=== PATIENT | male | born 1980 | race Caucasian/White ===

== ENCOUNTER 2020-10-23 07:51 | Outpatient (REF) | payer OTHER, SELFPAY | END 2020-10-23 07:52 | disposition home or self-care (01) | LOC: HO.LAB 07:51 | PROVIDERS: Visit Provider Internal Medicine | DX: Z20.828 Contact with and (suspected) exposure to other viral communicable diseases (principal) | CPT/HCPCS: C9803; U0003 ==

== ENCOUNTER 2020-11-18 15:01 | Outpatient (REF) | payer OTHER, SELFPAY | END 2020-11-18 15:02 | disposition home or self-care (01) | LOC: HO.LAB 15:01 | PROVIDERS: Visit Provider Internal Medicine | DX: Z20.828 Contact with and (suspected) exposure to other viral communicable diseases (principal) | CPT/HCPCS: C9803; U0003 ==

== ENCOUNTER 2020-11-26 10:13 | Outpatient (REF) | payer OTHER, SELFPAY | END 2020-11-26 10:14 | disposition home or self-care (01) | LOC: HO.LAB 10:13 | PROVIDERS: Visit Provider Internal Medicine | DX: Z20.828 Contact with and (suspected) exposure to other viral communicable diseases (principal) | CPT/HCPCS: 36415; C9803; U0003 ==

== ENCOUNTER 2021-01-09 10:15 | Outpatient (REF) | payer OTHER, SELFPAY | END 2021-01-09 10:16 | disposition home or self-care (01) | LOC: HO.LAB 10:15 | PROVIDERS: Visit Provider Internal Medicine | DX: Z20.822 Contact with and (suspected) exposure to COVID-19 (principal) | CPT/HCPCS: 36415; C9803; U0003; U0005 ==

== ENCOUNTER 2024-01-30 01:49 | Inpatient (IN) | payer MEDICAID, SELFPAY ==
--- NOTE | ~2024-01-30 | CT_ITS ---
CT/CT facial bones w IV con IMPRESSION: Soft tissue swelling adjacent to the anterolateral aspect of the left maxilla with a region of relative hypoattenuation measuring up to 2.9 cm, suspicious for phlegmonous change with a developing abscess, though without definite well-formed rim enhancement at this time. This may be odontogenic in origin, as there is subtle adjacent periapical lucency at the second maxillary molar. EXAMINATION: CT FACIAL BONES WITH CONTRAST CLINICAL INFORMATION: Left maxillary cellulitis, rule out abscess COMPARISON: None available. TECHNIQUE: 85 mL Omnipaque 300 intravenous contrast was utilized. Multidetector helical imaging was performed through the facial bones. Coronal and sagittal reformatted images were created. This CT examination was performed using dose optimization techniques as appropriate, variously including the following: *Automated exposure control *Adjustment of mA and/or kV according to patient size (this includes techniques or standardized protocols for targeted exams where dose is matched to indication/reason for exam; i.e. extremities or head) *Use of iterative reconstruction technique DLP: 399 mGy-cm FINDINGS: There is soft tissue swelling adjacent to the anterolateral aspect of the left maxilla. There is a region of relative hypoattenuation measuring up to approximately 2.9 x 2.4 cm in the axial plane and 2.2 cm in craniocaudal dimension. Appearance is is suspicious phlegmonous change with a developing abscess, though no definite well-formed rim enhancement is seen at this time. This may be odontogenic in origin, as there is subtle adjacent periapical lucency at the second maxillary molar. Overlying subcutaneous edema is present tracking along the left neck. No acute maxillofacial fractures are seen. Surgical hardware noted along the anterior left temporal bone. Small mucous retention cyst in the left maxillary sinus. Mucosal thickening of the bilateral ethmoid air cells. Remaining paranasal sinuses are well aerated. There is mild leftward bowing of the nasal septum. The mandibular condyles are well-seated in the condylar fossa. A relatively diminutive tooth is noted in the left maxilla oriented transversely in the region of the roots of the first and second molars. The orbits demonstrate a normal appearance bilaterally. The globes are intact, and there are no suspicious findings to suggest retrobulbar hemorrhage. Vasculature appears unremarkable. CSF density space in the left middle cranial fossa may represent an arachnoid cyst. Visualized portions of the brain parenchyma are otherwise unremarkable.
[2024-01-30 01:50] VITALS: BP 142/86; PULSE 83; RESP 18; TEMP 36.6; O2SAT 99; BMI 29.8
--- NOTE | 2024-01-30 03:03 | ED.DENTAL ---
HPI - Dental/Oral General Chief complaint: Dental/Oral Stated complaint: abscess Time Seen by Provider: 01/30/24 01:56 Source: patient Mode of arrival: ambulatory Limitations: no limitations History of Present Illness HPI Narrative: This is a 43-year-old male was seen by his dentist for left upper wisdom tooth problem and swelling of the left side of the face patient was started on amoxicillin by the dentist for the past 4 days with progressive worsening of the infection and swelling of the left side of the face. No fever, no chills. Related Data Allergies Allergy/AdvReac Type Severity Reaction Status Date / Time No Known Allergies Allergy Verified 01/30/24 01:54 [No Known Allergies*] Review of Systems Review of Systems: All other systems are reviewed and are negative Constitutional: Reports as per HPI and Reports no additional constitutional complaints Eyes: Reports as per HPI and Reports no additional eye complaints Reports system reviewed and no additional complaints, except as documented Cardiovascular: Reports as per HPI and Reports no additional cardiovascular complaints Respiratory: Reports as per HPI and Reports no additional respiratory complaints Gastrointestinal: Reports as per HPI and Reports no additional gastrointestinal complaints Genitourinary: Reports no additional female genitourinary complaints Musculoskeletal: Reports no additional musculoskeletal complaints Skin/Breast: Reports system reviewed and no additional complaints, except as docu Psychiatric: Reports no additional psychiatric complaints Endocrine: Reports no additional endocrine complaints Hematologic/Lymphatic: Reports no additional hematologic/lymphatic complaints Allergic/Immunologic: Reports no additional allergic/immunologic complaints Reports system reviewed and no additional complaints, except as documented and Reports Abnormal speech present [facility] Social History Social History Advance Directives: No Advance Directives Information Provided: No Physical Exam Vital Signs: Vital Signs: Last Vital Signs Temp 98.2 F 01/30/24 03:18 Pulse 64 01/30/24 03:18 Resp 16 01/30/24 03:18 BP 124/70 01/30/24 03:18 Pulse Ox 97 01/30/24 03:18 O2 Del Method Room Air 01/30/24 03:18 BMI result Body Mass Index 29.8 Vital signs have been reviewed and appear to be correct. Blood pressure elevated. Heart rate normal. Respiratory rate normal. Temperature normal. Oxygen saturation normal. Appearance: Alert. Oriented X3. No acute distress. Head and face: Normal external exam. Normocephalic. Atraumatic. No Vivas signs noted. No raccoon eyes noted, left cheek swelling and redness. Eyes: PERRLA. EOMI and nontender to movement. Conjunctiva and sclera normal. Eyelids normal. ENT: TM's Normal. Pharynx normal. Uvula midline. Moist mucous membranes. No trismus noted. No drooling noted. No muffled voice noted. Neck: Normal inspection. Neck supple. FROM. No adenopathy. Thyroid Normal. No meningeal signs. No neck mass noted. CVS: Normal heart rate and rhythm. Heart sound normal. No murmurs noted. Pulses normal throughout. Respiratory: No respiratory distress. Painless inspiration. Breath sounds normal. No wheezes/rales/rhonchi noted. Chest nontender. No accessory muscle usage noted or decreased air movement noted. Abdomen: Soft and nontender. Bowel sounds normal in all 4 quadrants. No distention noted. No organomegaly noted. No visible injury noted. Back: No CVA tenderness. Full range of motion noted. Skin: Skin warm and dry. Normal skin color. Normal skin turgor. No rashes/lesions/lacerations noted. Extremities: No lower extremity edema. Extremities exhibit normal range of motion. Extremities nontender. Neuro: Oriented X 3. Cranial nerve exam: II-XII are grossly intact No motor deficit. No sensory deficit. Reflexes normal. Course Reevaluation(s) Reevaluation #1: 43-year-old male came in with left facial cellulitis secondary to dental infection patient tried 5 days of amoxicillin orally as an outpatient with worsening of the facial cellulitis received 1 dose of clindamycin IV in the ED, need to be admitted for IV antibiotic. Time: 05:32 Medications Administered Discontinued Medications Generic Name Dose Route Start Last Admin Trade Name Freq PRN Reason Stop Dose Admin Sodium Chloride 1,000 mls @ 999 mls/hr 01/30/24 03:00 01/30/24 04:11 Ns IV 01/30/24 04:00 Infused .Q1H1M ONE Infusion Clindamycin Phosphate 900 mg in 50 mls @ 50 mls/hr 01/30/24 03:00 01/30/24 05:04 Cleocin IV 01/30/24 03:59 Infused ONCE ONE Infusion Iohexol 85 ml 01/30/24 04:05 01/30/24 04:06 Iohexol 350 Mg/Ml 100 Ml Infus..Btl IV 01/30/24 04:06 85 ml ONCE ONE Administration Medical Decision Making Differential Diagnosis Differential Diagnoses: The differential diagnosis associated with the presentation includes (Facial abscess, facial cellulitis, sepsis, electrolyte derangement, severe anemia.) Admission/Observation Consideration of admission/observation: Escalation of care including admission/observation considered Lab Data MDM Lab Attestation statement: I reviewed the patient's lab results. 01/30/24 03:12 01/30/24 03:12 Labs: Lab Results 01/30/24 01/30/24 Range/Units 03:11 03:12 WBC 9.9 (4.8-10.8) X10*3/uL RBC 4.97 (4.60-5.80) X10*6/uL Hgb 14.6 (14.0-18.0) g/dl Hct 42.5 (42.0-52.0) % MCV 85.5 (80.0-98.0) fL MCH 29.4 (27.0-33.0) pg MCHC 34.4 (31.0-36.0) g/dl RDW 13.0 (11.0-16.0) % Plt Count 253 (160-400) X10*3/uL MPV 9.6 (9.4-12.4) fL Immature Gran % (Auto) 0.2 (0.0-0.4) % Neut % (Auto) 62.4 (45-73) % Lymph % (Auto) 26.6 (20-40) % [place] % (Auto) 7.4 (2-11) % Eos % (Auto) 2.9 (0-4) % Baso % (Auto) 0.5 (0-2) % Lymph # (Auto) 2.6 (1.2-4.9) X10*3/uL [place] # (Auto) 0.7 (0.1-1.2) X10*3/uL Eos # (Auto) 0.3 (0.0-0.4) X10*3/uL Baso # (Auto) 0.1 (0.0-0.2) X10*3/uL Abs Immat Gran (auto) 0.02 (0.00-0.03) X10*3/uL Absolute Neuts (auto) 6.2 (2.0-8.3) x10*3/uL Absolute Nucleated RBC 0.000 (0.0-0.012) X10*3/uL Nucleated RBC % (auto) 0.0 (0.0-0.2) /100WBC Sodium 142 (135-145) mmol/L Potassium 3.7 (3.3-5.1) mmol/L Chloride 105 (96-108) mmol/L Carbon Dioxide 25 (22-29) mmol/L Anion Gap 16 (12-20) BUN 16 (9-16) mg/dL Creatinine 0.87 (0.5-1.4) mg/dL Estim Creat Clear Calc 152.5 Estimated GFR > 60 Random Glucose 105 (60-115) mg/dL Lactic Acid 1.0 (0.5-2.0) mmol/L Calcium 9.7 (8.4-10.2) mg/dL Independent Interpretation I performed an independent interpretation of an: CT Scan (Facial:Soft tissue swelling adjacent to the anterolateral aspect of the left maxilla with a region of relative hypoattenuation measuring up to 2.9 cm, suspicious for phlegmonous change with a developing abscess, though without definite well-formed rim enhancement at this time. This may be odontogeni) Radiology Impression Discussion of test interpretation with radiology: I have reviewed the radiologist's reading. Discharge Plan Discharge Clinical Impression: Cellulitis of face Patient Disposition: Admitted As Inpatient
[2024-01-30] MEDS: 0.9 % Sodium Chloride 1,000 ML 999 ML IV (03:10)
[2024-01-30 03:18] VITALS: BP 124/70; PULSE 64; RESP 16; TEMP 36.8; O2SAT 97
[2024-01-30 03:19] LABS: MANUAL DIFF FLAG NO
[2024-01-30 03:20] LABS: Basophils Absolute Auto 0.1 X10*3/uL (0.0-0.2); Basophils Percent Auto 0.5 % (0-2); Eosinophils Absolute Auto 0.3 X10*3/uL (0.0-0.4); Eosinophils Percent Auto 2.9 % (0-4); Hematocrit 42.5 % (42.0-52.0); Hemoglobin 14.6 g/dl (14.0-18.0); Imm Gran Abs Auto 0.02 X10*3/uL (0.00-0.03); Imm Gran Pct Auto 0.2 % (0.0-0.4); Lymphocytes Absolute Auto 2.6 X10*3/uL (1.2-4.9); Lymphocytes Percent Auto 26.6 % (20-40); Mean Corpuscular HGB Conc 34.4 g/dl (31.0-36.0); Mean Corpuscular Hemoglobin 29.4 pg (27.0-33.0); Mean Corpuscular Volume 85.5 fL (80.0-98.0); Mean Platelet Volume 9.6 fL (9.4-12.4); Monocytes Absolute Auto 0.7 X10*3/uL (0.1-1.2); Monocytes Percent Auto 7.4 % (2-11); Neutrophils Absolute Auto 6.2 x10*3/uL (2.0-8.3); Neutrophils Percent Auto 62.4 % (45-73); Platelet Count 253 X10*3/uL (160-400); Red Blood Count 4.97 X10*6/uL (4.60-5.80); White Blood Count 9.9 X10*3/uL (4.8-10.8)
[2024-01-30 03:41] LABS: Anion Gap 16 (12-20); Blood Urea Nitrogen 16 mg/dL (9-16); Calcium 9.7 mg/dL (8.4-10.2); Carbon Dioxide 25 mmol/L (22-29); Chloride 105 mmol/L (96-108); Creatinine Clr Calc Pharmacy 152.5; Estimated Glomerular Filt Rate > 60; Glucose Random 105 mg/dL (60-115); Potassium 3.7 mmol/L (3.3-5.1); Sodium 142 mmol/L (135-145)
[2024-01-30] MEDS: Clindamycin Phosphate/D5W 900 MG/50 ML PIGGYBACK 50 MG IV (03:51)
[2024-01-30] MEDS: iohexoL 350 MG/ML 100 ML INFUS..BTL 85 ML IV (04:06)
[2024-01-30 06:05] VITALS: BP 121/71; PULSE 61; RESP 14; TEMP 36.8; O2SAT 97
--- NOTE | 2024-01-30 08:08 | PHA.MEDREC ---
Pharmacy Consult ? Medication Reconciliation Pharmacy has completed the medication reconciliation. Spoke with patient in the ED. Patient only on amoxicillin and tylenol. Patient started antibiotic approximately 4 days ago.
--- NOTE | 2024-01-30 08:32 | P.HPHOSP_ITS ---
History of Present Illness Date of Service: 01/30/24 Attending physician on admission: Macy Carlos [facility] Social History Advance Directives: No Advance Directives Information Provided: No Meds Allergies Allergy/AdvReac Type Severity Reaction Status Date / Time No Known Allergies Allergy Verified 01/30/24 01:54 [No Known Allergies*] Active Medications: Current Medications Acetaminophen (Acetaminophen 325 Mg Tablet) 650 mg PO Q6H PRN PRN Reason: fever/pain Dexamethasone (Dexamethasone 6 Mg Tablet) 6 mg PO ONCE ONE Stop: 01/30/24 08:28 Piperacillin Sod/Tazobactam (Sod 3.375 gm/ Sodium Chloride) 50 mls @ 100 mls/hr IV Q6H NELI Sodium Chloride (0.9 % Sodium Chloride Flush 3 Ml Syringe) 3 ml IVFLUSH QSHIFT [facility] Home Medications Medication Instructions Recorded Confirmed Last Taken Type acetaminophen 325 mg tablet 650 mg PO Q6H PRN fever/pain 01/30/24 01/30/24 Unknown History amoxicillin 500 mg capsule 500 mg PO TID 01/30/24 01/30/24 Unknown History Physical Exam 2 Vital Signs and Narrative: Vital Signs: Last Vital Signs Temp 98.3 F 01/30/24 06:05 Pulse 61 01/30/24 06:05 Resp 14 01/30/24 06:05 BP 121/71 01/30/24 06:05 Pulse Ox 97 01/30/24 06:05 O2 Del Method Room Air 01/30/24 06:05 BMI result Body Mass Index 29.8 Results Labs 01/30/24 03:12 01/30/24 03:12 Labs: Laboratory Results - last 24 hr 01/30/24 01/30/24 03:11 03:12 MCV 85.5 MCH 29.4 MCHC 34.4 RDW 13.0 Plt Count 253 MPV 9.6 Immature Gran % (Auto) 0.2 Neut % (Auto) 62.4 Lymph % (Auto) 26.6 [place] % (Auto) 7.4 Eos % (Auto) 2.9 Baso % (Auto) 0.5 Lymph # (Auto) 2.6 [place] # (Auto) 0.7 Eos # (Auto) 0.3 Baso # (Auto) 0.1 Abs Immat Gran (auto) 0.02 Absolute Neuts (auto) 6.2 Absolute Nucleated RBC 0.000 Nucleated RBC % (auto) 0.0 Anion Gap 16 Estim Creat Clear Calc 152.5 Estimated GFR > 60 Random Glucose 105 Lactic Acid 1.0 Calcium 9.7 Imaging Radiologist's Impressions: Impressions Face CT 01/30/24 04:14 IMPRESSION: Soft tissue swelling adjacent to the anterolateral aspect of the left maxilla with a region of relative hypoattenuation measuring up to 2.9 cm, suspicious for phlegmonous change with a developing abscess, though without definite well-formed rim enhancement at this time. This may be odontogenic in origin, as there is subtle adjacent periapical lucency at the second maxillary molar. Quality VTE VTE Risk Level:: Medical - moderate - high VTE Device Contraindication: N/A - Device Ordered VTE Drug Contraindication: N/A - Med Ordered
[2024-01-30] MEDS: dexAMETHasone 6 MG TABLET PO (09:20)
[2024-01-30] MEDS: Piperacillin Sodium/Tazobactam 3.375 GM in 0.9 % Sodium Chloride 50 ML IV ×3 (09:20→21:34)
[2024-01-30 11:59] VITALS: BP 135/83; PULSE 65; RESP 19; TEMP 37; O2SAT 98
--- NOTE | 2024-01-30 13:29 | PM.IMHP ---
History of Present Illness Date of Service: 01/30/24 Attending physician on admission: Macy Carlos Chief Complaint: Jaw pain Pt is a 43-year-old male PMH significant for opioid use disorder not on home medications who presents to the ED for evaluation upper left tooth swelling and pain. Patient initially presented to dentist's office 4-5 days ago for left upper wisdom tooth pain, and was started on amoxicillin. Patient has been adherent to medications, but swelling and pain have worsened. Patient denies fever, chills, nausea, vomiting. No shortness of breath. Denies odynophagia, dysphagia. Denies any acute vision changes. In the ED pt was afebrile with vitals WNL. Labs grossly unremarkable. No leukocytosis. Stable H&H. No electrolyte abnormalities. Renal function baseline. CT?of face showed soft tissue swelling adjacent to left maxilla with region of relative hypoattenuation measuring up to 2.9 cm, suspicious for phlegmonous change with a developing abscess though without definite well-formed rim enhancement. Pt was treated with IVF and clindamycin. Pt will be admitted to the hospital for treatment further evaluation of facial cellulitis with possible developing periodontal abscess. Review of Systems Review of Systems: Upper left dental and facial pain Denies fever, chills No odynophagia, dysphagia Denies shortness of breath No acute vision changes [facility] Medical History (Updated 01/30/24 @ 13:42 by DARSHANA Dunne) Opioid use disorder Social History Advance Directives: No Advance Directives Information Provided: No Meds Allergies Allergy/AdvReac Type Severity Reaction Status Date / Time No Known Allergies Allergy Verified 01/30/24 01:54 [No Known Allergies*] Active Medications: Current Medications Acetaminophen (Acetaminophen 325 Mg Tablet) 650 mg PO Q6H PRN PRN Reason: fever/pain Piperacillin Sod/Tazobactam (Sod 3.375 gm/ Sodium Chloride) 50 mls @ 100 mls/hr IV Q6H [facility] Last Infusion: 01/30/24 12:14 Dose: Infused Sodium Chloride (0.9 % Sodium Chloride Flush 3 Ml Syringe) 3 ml IVFLUSH QSHIFT [facility] Home Medications Medication Instructions Recorded Confirmed Last Taken Type acetaminophen 325 mg tablet 650 mg PO Q6H PRN fever/pain 01/30/24 01/30/24 Unknown History amoxicillin 500 mg capsule 500 mg PO TID 01/30/24 01/30/24 Unknown History Physical Exam Vital Signs and Narrative: Vital Signs: Last Vital Signs Temp 98.6 F 01/30/24 11:59 Pulse 65 01/30/24 11:59 Resp 19 01/30/24 11:59 BP 135/83 01/30/24 11:59 Pulse Ox 98 01/30/24 11:59 O2 Del Method Room Air 01/30/24 11:59 BMI result Body Mass Index 29.8 Constitutional: Alert, in no acute distress. Mental Status: Oriented to person, place and time. Eyes: Pupils are equal, round, and reactive to light. EOM intact. Ear, Nose, and Throat: Left upper jaw and gingiva erythematous with area of swelling. Area of swelling on upper left cheek. As pictured below. Respiratory: Clear to auscultation bilaterally. No wheezing, rales, or rhonchi. Cardiovascular: S1, S2 regular. No murmurs, rubs, or gallops. Gastrointestinal: Abdomen soft, non-tender, non-distended. Normal bowel sounds. Neurologic: Cranial nerves II-XII are grossly intact bilaterally. No focal neurological deficits. Moves all extremities spontaneously. Skin: Warm, dry. Musculoskeletal: No cyanosis or clubbing. Extremities: No edema. Psychiatric: Normal mood and affect. Results Labs 01/30/24 03:12 01/30/24 03:12 Labs: Laboratory Results - last 24 hr 01/30/24 01/30/24 03:11 03:12 MCV 85.5 MCH 29.4 MCHC 34.4 RDW 13.0 Plt Count 253 MPV 9.6 Immature Gran % (Auto) 0.2 Neut % (Auto) 62.4 Lymph % (Auto) 26.6 [place] % (Auto) 7.4 Eos % (Auto) 2.9 Baso % (Auto) 0.5 Lymph # (Auto) 2.6 [place] # (Auto) 0.7 Eos # (Auto) 0.3 Baso # (Auto) 0.1 Abs Immat Gran (auto) 0.02 Absolute Neuts (auto) 6.2 Absolute Nucleated RBC 0.000 Nucleated RBC % (auto) 0.0 Anion Gap 16 Estim Creat Clear Calc 152.5 Estimated GFR > 60 Random Glucose 105 Lactic Acid 1.0 Calcium 9.7 Imaging Radiologist's Impressions: Impressions Face CT 01/30/24 04:14 IMPRESSION: Soft tissue swelling adjacent to the anterolateral aspect of the left maxilla with a region of relative hypoattenuation measuring up to 2.9 cm, suspicious for phlegmonous change with a developing abscess, though without definite well-formed rim enhancement at this time. This may be odontogenic in origin, as there is subtle adjacent periapical lucency at the second maxillary molar. Assessment and Plan (1) Cellulitis of face: Status: Acute Plan Pt is a 43-year-old male PMH significant for opioid use disorder not on home medications who presents to the ED for evaluation upper left tooth swelling and pain. Pt will be admitted to the hospital for treatment further evaluation of facial cellulitis with possible developing periodontal abscess. Left facial cellulitis with possible developing upper left molar periodontal abscess CT showing left facial soft tissue swelling with possible developing abscess Failed outpatient therapy on amoxicillin times 4 days Patient does not meet sepsis criteria: No tachycardia, tachypnea, leukocytosis, or fever Given clindamycin in ED Will treat with Zosyn Will give dexamethasone x1 dose Compresses applied to affected area on cheek q.i.d for 30 minutes at a time Salt water gargles q.i.d ID consult Follow cultures Full Code Attending:?Dr. Carlos DVT Prophylaxis: Pt ambulatory Pt will require a hospitalization of at least two nights for treatment of?left facial cellulitis with possible developing periodontal abscess. Given that patient has failed outpatient oral antibiotic therapy he will require hospitalization for administration of IV antibiotics. Quality Stroke Does the patient have a stroke diagnosis?: No VTE Prior VTE?: No VTE Risk Level:: Medical - moderate - high VTE Device Contraindication: N/A - Device Ordered VTE Drug Contraindication: N/A - Med Ordered
[2024-01-30] MEDS: Acetaminophen 325 MG TABLET 650 MG PO ×2 (14:19→21:34)
[2024-01-30] MEDS: 0.9 % Sodium Chloride Flush 3 ML SYRINGE IVFLUSH ×2 (15:33→21:34)
--- NOTE | 2024-01-30 17:08 | PC.NURSE ---
Patient provided with salt water gargle and hot pack for face
[2024-01-30 19:36] VITALS: BP 119/56; PULSE 61; RESP 20; TEMP 36.6; O2SAT 97
[2024-01-30 21:21] VITALS: BMI 28.7
[2024-01-31] MEDS: Piperacillin Sodium/Tazobactam 3.375 GM in 0.9 % Sodium Chloride 50 ML IV ×2 (02:32→08:07)
[2024-01-31 03:30] VITALS: BP 113/63; PULSE 53; RESP 16; TEMP 36.1; O2SAT 98
[2024-01-31 07:30] VITALS: BP 121/67; PULSE 61; RESP 17; TEMP 36.4; O2SAT 98
[2024-01-31] MEDS: 0.9 % Sodium Chloride Flush 3 ML SYRINGE IVFLUSH ×2 (08:07→21:04)
[2024-01-31] MEDS: Acetaminophen 325 MG TABLET 650 MG PO (09:02)
[2024-01-31] MEDS: Clindamycin Phosphate/D5W 900 MG/50 ML PIGGYBACK 50 MG IV (13:31)
--- NOTE | 2024-01-31 13:35 | P.PNIM_ITS ---
Subjective Subjective Date of Service: 01/31/24 Interval History: facial cellulitis Review of Systems erythema and swelling/pain some improving Physical Exam 2 Vital Signs: Vital Signs: Last Vital Signs Temp 97.5 F 01/31/24 07:30 Pulse 61 01/31/24 07:30 Resp 17 01/31/24 07:30 BP 121/67 01/31/24 07:30 Pulse Ox 98 01/31/24 07:30 O2 Del Method Room Air 01/31/24 07:30 BMI result Body Mass Index 28.7 Appearance: Alert.? Oriented X3.? cvs: rrr, [id number]. facial-left side -erythema and swelling somewhat improving(please see h&P). res: clear to auscultation ,no rhonchii or wheezing abd: no rebound or guarding ,nt, bs present. ext pulses present , no cyanosis neuro: axo3 , nonfocal. Objective Data Active Medications Acetaminophen (Acetaminophen 325 Mg Tablet) 650 mg PO Q6H PRN PRN Reason: fever/pain Last Admin: 01/31/24 09:02 Dose: 650 mg Documented By: LAURENT Clindamycin Phosphate (Cleocin) 900 mg in 50 mls @ 50 mls/hr IV Q8H NELI Ceftriaxone Sodium 2 gm/ (Sodium Chloride) 50 mls @ 100 mls/hr IV Q24H NELI Sodium Chloride (0.9 % Sodium Chloride Flush 3 Ml Syringe) 3 ml IVFLUSH QSHIFT NELI Last Admin: 01/31/24 08:07 Dose: 3 ml Documented By: LAURENT Labs 01/30/24 03:12 01/30/24 03:12 Microbiology Microbiology Results: Microbiology 01/30/24 03:46 Blood Culture - Preliminary Blood - Venous No growth after 24 hours. 01/30/24 03:11 Blood Culture - Preliminary Blood - Venous No growth after 24 hours. Assessment and Plan (1) Cellulitis of face: Status: Acute Plan 43-year-old male PMH significant for opioid use disorder not on home medications who presents to the ED for evaluation upper left tooth swelling and pain. Pt will be admitted to the hospital for treatment further evaluation of facial cellulitis with possible developing periodontal abscess. Left facial cellulitis with possible developing upper left molar periodontal abscess CT showing left facial soft tissue swelling with possible developing abscess Failed outpatient therapy on amoxicillin times 4 days,not septic blood cultures pending. D/w Id( official note pending)given zosyn intially -now on iv clindamyin and ceftriaxone day1 Full Code DVT Prophylaxis: Pt ambulatory ongoing need hospitalization for 48 hrs treatment of?left facial cellulitis with possible developing periodontal abscess. Given that patient has failed outpatient oral antibiotic therapy he will require hospitalization for administration of IV antibiotics. expert follow up. Quality Stroke Does the patient have a stroke diagnosis?: No VTE Prior VTE?: No VTE Risk Level:: Medical - moderate - high VTE Device Contraindication: N/A - Device Ordered VTE Drug Contraindication: N/A - Med Ordered
--- NOTE | 2024-01-31 14:36 | P.CNID_ITS ---
History of Present Illness Data of Consult Service Date: 01/31/24 Requesting physician: Macy Carlos Primary Care Provider: Unknown Physician HPI Reason for consult: left dental infection He presents with left maxilla pain and swelling from upper lip area to eye. He saw dentist and was prescribed five days Amoxicillin and is not better/ CT scan shows swelling adjacent to anterolateral left maxilla with 2.9 cn phlegmon. He has no elevated temperature or chills at this time and swelling is going down. He has been in house for 48 hours. He describes no immunosuppression. WBC normal at 9.9. Review of Systems 2 Review of Systems: Yes all other systems are reviewed and are negative PMFSH Past Medical History Medical History Opioid use disorder Family History Family history: reviewed and not pertinent Social History Social History Household Members: Family Housing: House Do you presently have visiting nurse or other home services: No Patient Tobacco Use Status: Current everyday Tobacco user Cigarette Packs Per Day: 1 Cigarettes Per Day: 20.0 Patient Interested in Nicotine Replacement: No (pt has no current insurance) Substance Use Type: Marijuana Substance Use Frequency: Daily Currently Displaying Signs/Symptoms of Drug Intoxication Withdrawal: No Have you been hit, kicked, punched, or otherwise hurt by someone within the past year? If so, by whom?: No Do you feel safe in your current relationship?: Yes Is there a partner from a previous relationship who is making you feel unsafe now?: No Are you made to feel afraid or neglected: No Advance Directives: No Advance Directives Information Provided: No Do you have thoughts of harming others: None Do you have a plan to hurt others: No Plan Recently lost weight without trying: No Nutrition Risks: Dental problems Meds Allergies Allergy/AdvReac Type Severity Reaction Status Date / Time No Known Allergies Allergy Verified 01/30/24 01:54 [No Known Allergies*] Active Medications: Current Medications Acetaminophen (Acetaminophen 325 Mg Tablet) 650 mg PO Q6H PRN PRN Reason: fever/pain Last Admin: 01/31/24 09:02 Dose: 650 mg Clindamycin Phosphate (Cleocin) 900 mg in 50 mls @ 50 mls/hr IV Q8H NELI Last Admin: 01/31/24 13:31 Dose: 50 mls/hr Ceftriaxone Sodium 2 gm/ (Sodium Chloride) 50 mls @ 100 mls/hr IV Q24H [facility] Sodium Chloride (0.9 % Sodium Chloride Flush 3 Ml Syringe) 3 ml IVFLUSH QSHIFT [facility] Last Admin: 01/31/24 08:07 Dose: 3 ml Home Medications Medication Instructions Recorded Confirmed Last Taken Type acetaminophen 325 mg tablet 650 mg PO Q6H PRN fever/pain 01/30/24 01/30/24 Unknown History amoxicillin 500 mg capsule 500 mg PO TID 01/30/24 01/30/24 Unknown History Physical Exam 2 Vital Signs: Vital Signs: Last Vital Signs Temp 97.5 F 01/31/24 07:30 Pulse 61 01/31/24 07:30 Resp 17 01/31/24 07:30 BP 121/67 01/31/24 07:30 Pulse Ox 98 01/31/24 07:30 O2 Del Method Room Air 01/31/24 07:30 BMI result Body Mass Index 28.7 Const: General: cooperative HEENT: Other: swelling still present left face,mild cervical lymphadenopathy Head: Yes normal to inspection Face and sinus: Yes normal facial exam Mouth: Normal oral and palatal mucosa present Teeth and gingiva: dentition normal Eyes: General: appearance normal, both eyes and all related structures P upils: Equal, round and reactive pupils present Resp: Effort & Inspection: normal respiratory effort Cardio: Rate: regular rate Rhythm: regular rhythm GI: Palpation (GI): Soft to palpation and nontender : General: Yes no CVA tenderness Back/Spine/Pelvis: Back: no CVA tenderness Skin: General skin exam: no rashes or lesions noted Neuro: General: moves all extremities Cranial nerves: Yes Equal, round and reactive pupils present Extrem: General: Yes normal to inspection Psych: Appearance: grossly normal Results Labs 01/30/24 03:12 01/30/24 03:12 Microbiology Microbiology Results: Microbiology 01/30/24 03:46 Blood - Venous Blood Culture - Preliminary No growth after 24 hours. 01/30/24 03:11 Blood - Venous Blood Culture - Preliminary No growth after 24 hours. Assessment and Plan (1) Cellulitis of face: Status: Acute Plan This is dental infection,resolving. Opioid use disorder can cause dental concerns. Clindamycin 900 mg IV every 8 hours. Change to Clindamycin 450 mg po every 8 hours for 5-7 days on discharge. Check HIV and Hepatitis C.
[2024-01-31] MEDS: cefTRIAXone sodium 2 GM in 0.9 % Sodium Chloride 50 ML IV (14:49)
[2024-01-31 15:16] VITALS: BP 109/58; PULSE 69; RESP 18; TEMP 36.4; O2SAT 97
[2024-01-31 19:55] VITALS: BP 111/53; PULSE 63; RESP 18; TEMP 36.2; O2SAT 98
[2024-01-31] MEDS: Clindamycin Phosphate/D5W 900 MG/50 ML PIGGYBACK 100 MG IV (20:29)
[2024-02-01 03:18] VITALS: BP 106/52; PULSE 52; RESP 16; TEMP 36.3; O2SAT 98
[2024-02-01] MEDS: Clindamycin Phosphate/D5W 900 MG/50 ML PIGGYBACK 100 MG IV (04:51)
[2024-02-01 08:00] VITALS: BP 123/58; PULSE 83; RESP 16; TEMP 36.3; O2SAT 98
[2024-02-01] MEDS: 0.9 % Sodium Chloride Flush 3 ML SYRINGE IVFLUSH (08:58)
--- NOTE | 2024-02-01 09:03 | MHC.CM.PN ---
Addendum entered by Martha Horne RN 02/01/24 09:21: Patient is medically cleared for dc home self care. Original Note: Patient is from home w/ S.O. and family. Functionally independent. Denies use of DME or services. Patient does not have a PCP. Brochure provided. CM provided education re: HCP and offered assistance, patient declined. Patient does not have insurance at this time, and will apply for [employer]. DP: Home self care, PO abx, estimated cost of abx is ~$20 per pharmacy, patient able to pay out of pocket. Patient states his car is in the lot to transport self home. CM will continue to follow.
--- NOTE | 2024-02-01 09:26 | P.DS_ITS ---
DS: Providers Provider Date of Service: 02/01/24 Date of admission: 01/30/24 08:28 Primary care physician: Unknown Physician Consults: 01/30/24 08:31 Consult to Infectious Diseases Routine Consulting Provider: [facility] Infectious Disease Reason for consultation: facial cellulitis /abcess Has provider been notified: No DS: Diagnosis Discharge Diagnosis (1) Cellulitis of face: Status: Acute DS: Summary Hospital Course Hospital Course: admission hpi Chief Complaint: Jaw pain Pt is a 43-year-old male PMH significant for opioid use disorder not on home medications who presents to the ED for evaluation upper left tooth swelling and pain. Patient initially presented to dentist's office 4-5 days ago for left upper wisdom tooth pain, and was started on amoxicillin. Patient has been adherent to medications, but swelling and pain have worsened. Patient denies fever, chills, nausea, vomiting. No shortness of breath. Denies odynophagia, dysphagia. Denies any acute vision changes. In the ED pt was afebrile with vitals WNL. Labs grossly unremarkable. No leukocytosis. Stable H&H. No electrolyte abnormalities. Renal function baseline. CT?of face showed soft tissue swelling adjacent to left maxilla with region of relative hypoattenuation measuring up to 2.9 cm, suspicious for phlegmonous change with a developing abscess though without definite well-formed rim enhancement. Pt was treated with IVF and clindamycin. Pt will be admitted to the hospital for treatment further evaluation of facial cellulitis with possible developing periodontal abscess. hospital course: He presented with a dental infection causing left facial cellulitis. He was treated with intravenous (IV) clindamycin and showed rapid improvement, with a significant decrease in swelling and redness (see picture). The infectious disease expert recommends transitioning to oral clindamycin upon discharge. He is advised to follow up with his dentist as soon as possible. Time Attestation Discharge Coordination Time (in mins): 33 Quality: Safe Use of Opioids Does Pt have an Active Cancer Diagnosis on the Problem List?: No Quality: Stroke Does the patient have a stroke diagnosis?: No Physical Exam 2 Vital Signs: Vital Signs: Last Vital Signs Temp 97.4 F 02/01/24 08:00 Pulse 83 02/01/24 08:00 Resp 16 02/01/24 08:00 BP 123/58 L 02/01/24 08:00 Pulse Ox 98 02/01/24 08:00 O2 Del Method Room Air 02/01/24 08:00 BMI result Body Mass Index 28.7 General: AO X 3, no acute distress Resp: CTA bilateral CVS: S1,S2,RRR GI: +BS, NT, no distention Skin: Neuro: motor grossly intact Psych: appropriate affect DS: Data Data Completed and Pending Labs on day of discharge: Preliminary micro results at discharge 01/30/24 03:46 Blood Culture - Preliminary Blood - Venous No growth after 48 hours. 01/30/24 03:11 Blood Culture - Preliminary Blood - Venous No growth after 48 hours. Discharge Plan Discharge Anticipated Discharge Date/Time: 02/01/24 09:12 Patient Disposition: Home, Self-Care Discharge Diagnosis: Facial Cellulitis, dental infection Referrals: Physician,Unknown J [Primary Care Provider] - 1 Week Discharge Medications: New clindamycin HCl [Cleocin HCl] 300 mg capsule 450 mg PO Q8H 6 Days Qty: 27 0RF Continued acetaminophen 325 mg Tablet 650 mg PO Q6H PRN (Reason: fever/pain) Discontinued amoxicillin 500 mg capsule 500 mg PO TID Discharge Orders: Discharge Order (Routine); Ordered 02/01/24 Ordered By: [facility] Diet: Advance to usual diet Activity on Discharge: As tolerated Stand Alone Forms: Patient Portal Discharge page Care Plan Goals: resolution of facial cellulitis and dental abscess Health Concerns: Cellulitis, dental abscess. Plan of Treatment: Take clindamycin as recommended and follow up if your dental specialist in a week, call for appointmen Assessment: see above
== END 2024-02-01 11:02 | disposition home or self-care (01) | DRG 159 ==
LOC: HO.ED 03:57 → HO.EDOVER 08:32 → HO.IMC 17:47 → HO.S3 23:39
PROVIDERS: Admitting Provider Internal Medicine; Emergency Provider Emergency Medicine; Visit Provider Internal Medicine
DX: K12.2 Cellulitis and abscess of mouth (principal); F17.210 Nicotine dependence, cigarettes, uncomplicated; Z71.6 Tobacco abuse counseling; F11.90 Opioid use, unspecified, uncomplicated
CPT/HCPCS: 36415; 70487; 80048; 83605; 85025; 87040; 99221; 99285; J0696; J0736; J2543; J8540; Q9967

== ENCOUNTER → 2024-01-30 08:28 | Outpatient (BNV) | payer MEDICAID, SELFPAY | PROVIDERS: Admitting Provider Internal Medicine; Emergency Provider Emergency Medicine; Visit Provider Internal Medicine | DX: L03.211 Cellulitis of face (principal) | CPT/HCPCS: 99222 ==

== ENCOUNTER → 2024-01-30 08:28 | Outpatient (BNV) | payer MEDICAID, SELFPAY | PROVIDERS: Admitting Provider Internal Medicine; Emergency Provider Emergency Medicine; Visit Provider Student in an Organized Health Care Education/Training Program | DX: L03.211 Cellulitis of face (principal); F11.288 Opioid dependence with other opioid-induced disorder | CPT/HCPCS: 99223; 99232; 99239 ==

== ENCOUNTER 2025-04-13 16:39 | Emergency (ER) | payer OTHER, SELFPAY ==
--- NOTE | ~2025-04-13 | XR_ITS ---
CLINICAL HISTORY: ulcer, wound L mid medial leg 2 view left tibia-fibula Comparison: None Findings Diffuse soft tissue swelling with possible ulceration along the posterior aspect near the calcaneus, should be correlated clinically. No acute fracture. No significant arthritic change. No radiopaque foreign body. IMPRESSION: No acute fracture. Diffuse cellulitis This document has been electronically signed by: Jerzy Carlos MD on 04/13/2025 19:53:04
--- NOTE | ~2025-04-13 | US_ITS ---
CLINICAL HISTORY: pain VENOUS DUPLEX ULTRASOUND LEFT LOWER EXTREMITY Comparison: None Findings: The visualized deep veins are fully compressible with normal Doppler color flow and spectral tracings. No popliteal cyst. A left groin lymph node that measures 2.4 cm in length demonstrates benign morphology. IMPRESSION: 1. Negative for left lower extremity deep vein thrombosis. This document has been electronically signed by: Sita Rizzo DO on 04/13/2025 17:55:31
[2025-04-13 16:40] VITALS: BP 134/87; PULSE 88; RESP 18; TEMP 36.8; O2SAT 99; BMI 22.1
--- NOTE | 2025-04-13 16:46 | ED.GENADULT ---
HPI - General Adult General Chief complaint: Wound/Laceration Stated complaint: Left Leg Infection Time Seen by Provider: 04/13/25 17:54 History of Present Illness ED Provider: Brayan Smith MD HPI narrative: [age] male with opioid use disorder, injection, with fluctuating wound of the left medial lower leg for about 2 weeks worsening of the past 2-3 days no subjective fever. He said he struck it on a nail a few weeks ago unsure of tetanus status. No antibiotics or treatment 1st time he evaluation for today. Related Data Previous Rx's ?Medication ?Instructions ?Recorded cefadroxil 500 mg capsule 500 mg PO BID 10 days #20 caps 04/13/25 sulfamethoxazole 800 1 tab PO BID 10 days #20 tabs 04/13/25 mg-trimethoprim 160 mg tablet (Bactrim DS) Allergies Allergy/AdvReac Type Severity Reaction Status Date / Time No Known Allergies Allergy Verified 04/14/25 15:07 [No Known Allergies*] PMFSH Past Medical History Medical History (Updated 04/14/25 @ 17:56 by Johnny Singh MD) MSSA bacteremia Opioid use disorder Social History Social History Household Members: Family Housing: House Do you presently have visiting nurse or other home services: No Patient Tobacco Use Status: Current everyday Tobacco user Cigarette Packs Per Day: 1 Cigarettes Per Day: 20.0 Smoked in Last 30 Days: Yes Use of substances other than those prescribed or required for medical reasons: Yes Substance Use Type: Crack/Cocaine Substance Use Frequency: Daily Last Used Substance: Days (ago) Advance Directives: No Advance Directives Information Provided: No Do you have a plan to hurt others: No Plan Nutrition Risks: No Nutritional Risk service: No Physical Exam ED Vital Signs: Vital Signs - 24 hr 04/13/25 16:40 04/13/25 18:32 04/13/25 20:48 Temperature 98.3 F 97.9 F 98.2 F Pulse Rate 88 66 77 Respiratory Rate 18 18 16 Blood Pressure 134/87 124/72 109/63 Pulse Oximetry 99 99 100 Oxygen Delivery Method Room Air Room Air Room Air 04/13/25 20:48 Temperature 98.3 F Pulse Rate 81 Respiratory Rate 16 Blood Pressure 141/75 H Pulse Oximetry 97 Oxygen Delivery Method Room Air BMI result Body Mass Index 22.1 Const Other: EXAM: Gen sleepy but easily arousable. Temporal wasting thin but not cachectic Head: Atraumatic Eyes: Anicteric, Normal conjunctiva. ENT: Moist mucosa, no pallor. ? Neck: Supple. Respiratory: Breathing comfortably, No distress.Clear to auscultation bilaterally, symmetric chest expansion, No wheeze, rales, ronchi. Cardiovascular: Regular rate and rhythm. No murmurs or rub. Well perfused periphery, warm extremities. No edema. ? Abdominal: Soft, no objective distension. No palpable masses or obvious organomegaly. No focal tenderness, no guarding, no rebound tenderness or other peritoneal findings. : No flank tenderness. Neuro: Alert. Gross movement of all extremities intact. ? MSK: Redness with central ulceration about 2 cm mid left lower leg slightly to the medial aspect. Soft compartments mild swelling and erythema about the ankle. Well-perfused foot. No pain with passive ranging of the ankle Vital signs: See flowsheet Course Course Course Narrative: RME, this is a rapid medical exam performed by Navneet Paz please refer to primary provider for complete H&P- 44-year-old male presents for evaluation of left lower leg pain and swelling. The patient reports that about 2 weeks ago he cut his left leg on what he thinks was a kate nail. He works as a [employer]. He tried to treat it himself with warm compresses, he reports that he tried to open himself with a sharp piece of plastic. He has significant erythema with edema to the left lower extremity over the calf. Plan for labs including blood cultures an ultrasound of the left lower extremity 04/14/2025 Tammy Beauchamp PA-C: 1 of 2 blood cultures positive for gram positive cocci in clusters, Staph positive, MRSA negative. I spoke with the attending physician on staff who recommended having the patient return for re-evaluation and potentially ABX. Medications Administered Discontinued Medications Generic Name Dose Route Start Last Admin Trade Name Freq PRN Reason Stop Dose Admin Ceftriaxone Sodium 2 gm 04/13/25 18:56 04/13/25 20:34 Ceftriaxone Sodium 2 Gm Vial IVPUSH 04/13/25 18:57 2 gm ONCE ONE Administration Ibuprofen 600 mg 04/13/25 18:56 04/13/25 20:33 Ibuprofen 600 Mg Tablet PO 04/13/25 18:57 600 mg ONCE ONE Administration Mupirocin 1 appl 04/13/25 18:56 04/13/25 20:33 Mupirocin 2 % Oint 22 Gm Tube TOPICAL 04/13/25 18:57 Not Given ONCE ONE Protocol Trimethoprim/Sulfamethoxazole 1 tab 04/13/25 18:56 04/13/25 20:34 Sulfamethox/Trimeth 800/160 Tablet PO 04/13/25 18:57 1 tab ONCE ONE Administration Medical Decision Making Medical Decision Making [facility] Narrative: 44-year-old male with IV DU, 2 weeks fluctuating but now worsening left medial lower leg ulceration with surrounding cellulitis. No tachycardia, hypotension, leukocytosis. Unclear mild hemoglobin drop. Given precautions for GI bleeding to return immediately back. PCP follow up. Patient prefers outpatient treatment with oral antibiotics as he depends on his job strict return precautions described. Lab Data [facility] Lab Attestation statement: I reviewed the patient's lab results. 04/13/25 17:47 04/13/25 17:47 Labs: Lab Results 04/13/25 Range/Units 17:47 WBC 7.9 (4.8-10.8) X10*3/uL RBC 4.31 L (4.60-5.80) X10*6/uL Hgb 12.7 L (14.0-18.0) g/dl Hct 36.9 L (42.0-52.0) % MCV 85.6 (80.0-98.0) fL MCH 29.5 (27.0-33.0) pg MCHC 34.4 (31.0-36.0) g/dl RDW 13.0 (11.0-16.0) % Plt Count 277 (160-400) X10*3/uL MPV 9.6 (9.4-12.4) fL Immature Gran % (Auto) 0.3 (0.0-0.4) % Neut % (Auto) 66.8 (45-73) % Lymph % (Auto) 20.5 (20-40) % [place] % (Auto) 9.1 (2-11) % Eos % (Auto) 2.3 (0-4) % Baso % (Auto) 1.0 (0-2) % Lymph # (Auto) 1.6 (1.2-4.9) X10*3/uL [place] # (Auto) 0.7 (0.1-1.2) X10*3/uL Eos # (Auto) 0.2 (0.0-0.4) X10*3/uL Baso # (Auto) 0.1 (0.0-0.2) X10*3/uL Abs Immat Gran (auto) 0.02 (0.00-0.03) X10*3/uL Absolute Neuts (auto) 5.3 (2.0-8.3) x10*3/uL Absolute Nucleated RBC 0.000 (0.0-0.012) X10*3/uL Nucleated RBC % (auto) 0.0 (0.0-0.2) /100WBC Sodium 142 (135-145) mmol/L Potassium 3.6 (3.3-5.1) mmol/L Chloride 106 (96-108) mmol/L Carbon Dioxide 28 (22-29) mmol/L Anion Gap 12 (12-20) BUN 23 H (9-16) mg/dL Creatinine 0.81 (0.5-1.4) mg/dL Estim Creat Clear Calc 138.1 Estimated GFR > 60 Random Glucose 112 (60-115) mg/dL Lactic Acid 1.3 (0.5-2.0) mmol/L Calcium 9.3 (8.4-10.2) mg/dL Total Bilirubin 0.6 (0.0-1.0) mg/dL AST 33 (5-37) U/L ALT 20 (0-40) U/L Alkaline Phosphatase 60 (39-117) U/L Total Creatine Kinase 159 (38-174) U/L Total Protein 7.2 (6.5-8.0) g/dL Albumin 4.0 (3.5-5.0) g/dL Lipase 17 (8-78) U/L Discharge Plan Discharge Clinical Impression: Cellulitis of anterior lower leg Patient Disposition: Home, Self-Care Instructions: Cellulitis (ED) Additional Instructions: DISCHARGE DIAGNOSES: Cellulitis No clot in the leg HISTORY OF PRESENTATION: Swelling redness fluctuating over the past 2 weeks worsened over the past 2-3 days. Left leg EMERGENCY DEPARTMENT COURSE,TESTS, TREATMENTS: While in the ED today we did an ultrasound which excluded a blood clot. Your lab work was reassuring although you did have a slight drop in your red blood cell counts this indicates mild anemia. This is of unclear cause and you should have a repeat CBC blood test with your primary doctor in 1 week. If you notice blood in your stool dark stool vomiting blood or any other bleeding source return back to emergency department for recheck DISCHARGE MEDICATIONS: Cefadroxil and Bactrim are prescribed you take them daily and we recommend taking this with 1 Thai yogurt per day FOLLOW-UP: ?Call your primary or general physician soon as possible to discuss your symptoms, your ED visit and to discuss follow up plans Call your primary doctor for follow up or wound check follow up in 3-4 day in urgent care INSTRUCTIONS ?& RETURN PRECAUTIONS: If any symptoms change first call your primary physician, if it is after-hours your primary doctors office should have a provider stone planer you can speak with. If the symptoms are severe or very concerning to you then call 911 or return to the ED. Brayan Smith MD Emergency Physician [facility] Prescriptions: New sulfamethoxazole-trimethoprim [Bactrim DS] 800-160 mg tablet 1 tab PO BID 10 Days Qty: 20 0RF cefadroxil 500 mg capsule 500 mg PO BID 10 Days Qty: 20 0RF Interventions: ED Discharge Assessment Last Done: 04/13/25 20:48 Discharge Date/Time: 04/13/25 20:53 Print Language: Luxembourgish
[2025-04-13 17:53] LABS: MANUAL DIFF FLAG NO
[2025-04-13 17:55] LABS: Basophils Absolute Auto 0.1 X10*3/uL (0.0-0.2); Eosinophils Absolute Auto 0.2 X10*3/uL (0.0-0.4); Eosinophils Percent Auto 2.3 % (0-4); Hematocrit 36.9 % (42.0-52.0); Hemoglobin 12.7 g/dl (14.0-18.0); Imm Gran Abs Auto 0.02 X10*3/uL (0.00-0.03); Imm Gran Pct Auto 0.3 % (0.0-0.4); Lymphocytes Absolute Auto 1.6 X10*3/uL (1.2-4.9); Lymphocytes Percent Auto 20.5 % (20-40); Mean Corpuscular HGB Conc 34.4 g/dl (31.0-36.0); Mean Corpuscular Hemoglobin 29.5 pg (27.0-33.0); Mean Corpuscular Volume 85.6 fL (80.0-98.0); Mean Platelet Volume 9.6 fL (9.4-12.4); Monocytes Absolute Auto 0.7 X10*3/uL (0.1-1.2); Monocytes Percent Auto 9.1 % (2-11); Neutrophils Absolute Auto 5.3 x10*3/uL (2.0-8.3); Neutrophils Percent Auto 66.8 % (45-73); Platelet Count 277 X10*3/uL (160-400); Red Blood Count 4.31 X10*6/uL (4.60-5.80); White Blood Count 7.9 X10*3/uL (4.8-10.8)
[2025-04-13 18:09] LABS: Lactic Acid 1.3 mmol/L (0.5-2.0)
[2025-04-13 18:12] LABS: Alanine Aminotransferase 20 U/L (0-40); Alkaline Phosphatase 60 U/L (39-117); Anion Gap 12 (12-20); Aspartate Amino Transferase 33 U/L (5-37); Bilirubin Total 0.6 mg/dL (0.0-1.0); Blood Urea Nitrogen 23 mg/dL (9-16); Calcium 9.3 mg/dL (8.4-10.2); Carbon Dioxide 28 mmol/L (22-29); Chloride 106 mmol/L (96-108); Creatinine Clr Calc Pharmacy 138.1; Estimated Glomerular Filt Rate > 60; Glucose Random 112 mg/dL (60-115); Potassium 3.6 mmol/L (3.3-5.1); Sodium 142 mmol/L (135-145); Total Protein 7.2 g/dL (6.5-8.0)
[2025-04-13 18:27] LABS: Lipase 17 U/L (8-78)
[2025-04-13 18:32] VITALS: BP 124/72; PULSE 66; RESP 18; TEMP 36.6; O2SAT 99
--- NOTE | 2025-04-13 18:42 | PC.NURSE ---
LLE irma wound redness has been demarcated with skin marker. Pt is aware that need to stay for IV abx is likely. States he attempted to drain wound and that dark brown drainage was very thick. Left calf is very swollen, warm, red.
[2025-04-13] MEDS: Ibuprofen 600 MG TABLET PO (20:33)
[2025-04-13] MEDS: cefTRIAXone sodium 2 GM VIAL IVPUSH (20:34)
[2025-04-13] MEDS: Sulfamethox/Trimeth 800/160 TABLET 1 TAB PO (20:34)
[2025-04-13 20:48] VITALS: BP 109/63; BP 141/75; PULSE 77; PULSE 81; RESP 16; TEMP 36.8; O2SAT 100; O2SAT 97
--- NOTE | 2025-04-13 20:52 | MHC.EDTECH ---
Provider said no need to collected urine sample ,Last sets of vitals taken before Pt leave .
== END 2025-04-13 20:53 | disposition home or self-care (01) ==
PROVIDERS: Physician Assistant; Emergency Provider Emergency Medicine
DX: L03.116 Cellulitis of left lower limb (principal); M79.605 Pain in left leg; R60.0 Localized edema; Z79.899 Other long term (current) drug therapy
CPT/HCPCS: 36415; 73590; 80053; 82550; 83605; 83690; 85025; 87040; 87077; 87186; 87205; 93971; 96374; 99284; J0696

== ENCOUNTER → 2025-04-13 16:45 | Outpatient (BNV) | payer MEDICAID, SELFPAY | PROVIDERS: Emergency Provider Emergency Medicine; Visit Provider Radiology Diagnostic Radiology | DX: M79.662 Pain in left lower leg (principal); L03.116 Cellulitis of left lower limb | CPT/HCPCS: 73590; 93971 ==

== ENCOUNTER 2025-04-14 14:54 | Inpatient (IN) | payer SELFPAY ==
--- NOTE | ~2025-04-14 | CT_ITS ---
CLINICAL HISTORY: pain, swelling, concern for abscess CT LEFT TIBIA AND FIBULA WITH CONTRAST Comparison: None Findings: Axial images were obtained from the distal femur through the hindfoot. Sagittal and coronal reformatted images are also submitted for review. Diffuse extensive subcutaneous edema. No wall enhancing or measurable fluid collection. No deep or superficial gas lobules. No foreign body. No erosive or resorptive bony changes. No acute fracture or dislocation. Impression: 1. Extensive cellulitic changes. 2. No evidence for abscess, necrotizing fasciitis or acute osteomyelitis. This document has been electronically signed by: Sita Rizzo DO on 04/14/2025 17:22:58
[2025-04-14 15:04] VITALS: BP 150/84; PULSE 102; RESP 18; TEMP 37.2; O2SAT 98; BMI 23.0
--- NOTE | 2025-04-14 15:07 | ED.GENADULT ---
HPI - General Adult General Chief complaint: Recheck/Abnormal Lab/Rx Stated complaint: abnormal labs was called to return Time Seen by Provider: 04/14/25 16:16 Source: patient Mode of arrival: ambulatory Limitations: no limitations History of Present Illness ED Provider: Tammy Beauchamp PA-C HPI narrative: Patient is a 44 year old assigned male at with a history of IVDU (cocaine) and recent left lower leg cellulitis presenting to the emergency department today with positive blood cultures. Patient states that he was recently seen here and started on antibiotics for a left lower leg infection and he was called today and told his blood cultures were positive so he should return. Patient denies any dizziness, lightheadedness, abdominal pain, nausea, vomiting, fever, chills, blurry vision, double vision, loss of vision, chest pain, difficulty breathing, shortness of breath, back pain, night sweats, pain with urination, increased urinary frequency, increased urinary urgency, blood in his urine or stool, syncope or a near syncopal episode, recent trauma or falls, bowel incontinence, bladder incontinence, or any other complaints at this time. Relieving factors: none Exacerbating factors: none Associated symptoms: denies other symptoms Related Data Home Medications ?Medication ?Instructions ?Recorded ?Confirmed acetaminophen 325 mg tablet 650 mg PO Q6H PRN fever/pain 01/30/24 01/30/24 Previous Rx's ?Medication ?Instructions ?Recorded clindamycin HCl 300 mg capsule 450 mg (1.5 x 300 mg) PO Q8H 6 02/01/24 (Cleocin HCl) days #27 caps cefadroxil 500 mg capsule 500 mg PO BID 10 days #20 caps 04/13/25 sulfamethoxazole 800 1 tab PO BID 10 days #20 tabs 04/13/25 mg-trimethoprim 160 mg tablet (Bactrim DS) Allergies Allergy/AdvReac Type Severity Reaction Status Date / Time No Known Allergies Allergy Verified 04/14/25 15:07 [No Known Allergies*] Review of Systems Constitutional: Constitutional: Reports no additional constitutional complaints, Denies chills, Denies fever(s) and Denies night sweats Eyes: Eyes: Reports no additional eye complaints, Denies blurry vision, Denies change in vision, Denies diplopia, Denies eye discharge, Denies loss of vision and Denies eye pain ENT: Denies dizziness Cardiovascular: Cardiovascular: Reports no additional cardiovascular complaints, Denies chest pain, Denies lightheadedness, Denies Loss of Consciousness and Denies dyspnea Respiratory: Respiratory: Reports no additional respiratory complaints and Denies dyspnea Gastrointestinal: Gastrointestinal: Reports no additional gastrointestinal complaints, Denies abdominal pain, Denies melena, Denies hematochezia, Denies change in bowel habits and Denies change in stool character Genitourinary: Genitourinary: Reports no additional male genitourinary complaints, Denies hematuria, Denies oliguria, Denies difficulty urinating, Denies dysuria, Denies urinary frequency, Denies urinary hesitancy, Denies urinary incontinence and Denies urinary urgency Musculoskeletal: Musculoskeletal: Reports no additional musculoskeletal complaints, Denies numbness and Denies tingling Comments: left lower leg wound Neurologic: Denies dizziness, Denies loss of vision, Denies numbness and Denies tingling Psychiatric: Psychiatric: Reports no additional psychiatric complaints Endocrine: Endocrine: Reports no additional endocrine complaints Hematologic/Lymphatic: Hematologic/Lymphatic: Reports no additional hematologic/lymphatic complaints Allergic/Immunologic: Allergic/Immunologic: Reports no additional allergic/immunologic complaints [facility] Past Medical History Attestation statement: The following information was validated with the patient. Source: old records reviewed and nursing notes reviewed Medical History Opioid use disorder Social History Social History Household Members: Family Housing: House Do you presently have visiting nurse or other home services: No Patient Tobacco Use Status: Current everyday Tobacco user Cigarette Packs Per Day: 1 Cigarettes Per Day: 20.0 Smoked in Last 30 Days: Yes Use of substances other than those prescribed or required for medical reasons: Yes Substance Use Type: Crack/Cocaine Substance Use Frequency: Daily Last Used Substance: Days (ago) Advance Directives: No Advance Directives Information Provided: Yes Do you have a plan to hurt others: No Plan service: No Physical Exam ED Vital Signs: Vital Signs - 24 hr 04/14/25 15:04 04/14/25 16:43 Temperature 99 F 98.3 F Pulse Rate 102 H 73 Respiratory Rate 18 16 Blood Pressure 150/84 H 112/56 L Pulse Oximetry 98 99 Oxygen Delivery Method Room Air Room Air BMI result Body Mass Index 23.0 Const General: cooperative, no acute distress, alert and awake Nutritional Appearance: well nourished Orientation/consciousness: patient oriented x3 HENMT Head: Yes normal to inspection and Yes atraumatic Ears: hearing grossly normal bilaterally and external ears normal General nose exam: Normal external nose present, no nasal discharge noted and no epistaxis Face and sinus: Yes normal facial exam, No abrasion and No laceration Mouth: Normal oral and palatal mucosa present, no drooling and no muffled voice Eyes General: appearance normal, both eyes and all related structures Periorbital: periorbital findings normal Eyelids: Yes eyelids normal Conjunctivae: conjunctivae normal Pupils: Equal, round and reactive pupils present EOM: EOMs intact bilaterally Neck Neck: Yes normal visual inspection, Yes full ROM and Yes no lymphadenopathy Resp Effort & Inspection: normal respiratory effort and able to speak in complete sentences Neuro General: patient oriented x3, moves all extremities and CN's II-XI intact bilaterally Cranial nerves: Yes Equal, round and reactive pupils present Cognition (Neuro): normal cognition Extrem Other: General: Yes full ROM and Yes capillary refill normal Psych Appearance: grossly normal Mental Status: mental status grossly normal Affect: normal affect Attitude: cooperative Thought process: Normal thought process present Thought content: Normal thought content present Insight: Good insight present (Psych) Course Course Course Narrative: RME, this is a rapid medical exam performed by Navneet Paz please refer to primary provider for complete H&P- 44 year old male presents for evaluation of positive blood cultures. He was seen here yesterday for cellulitis. He was called back today due to 1/2 blood cultures positive. Plan for labs and repeat blood cultures Medications Administered Discontinued Medications Generic Name Dose Route Start Last Admin Trade Name Jaida PRN Reason Stop Dose Admin Vancomycin HCl 1,000 mg/ 270 mls @ 270 mls/hr 04/14/25 16:20 04/14/25 17:06 Sodium Chloride IV 04/14/25 17:19 270 mls/hr ONCE ONE Administration Piperacillin Sod/Tazobactam 50 mls @ 100 mls/hr 04/14/25 16:20 04/14/25 17:06 Sod 3.375 gm/ Sodium Chloride IV 04/14/25 16:49 Infused ONCE ONE Infusion Iohexol 85 ml 04/14/25 16:47 05/24/25 16:47 Iohexol 350 Mg/Ml 100 Ml Infus..Btl IV 04/14/25 16:48 85 ml ONCE ONE Administration Nicotine 21 mg 04/14/25 16:49 04/14/25 17:11 Nicotine 21 Mg Patch.Td24 TRANSDERMA 04/14/25 16:50 21 mg ONCE ONE Administration Medical Decision Making Medical Decision Making [facility] Narrative: Patient is a 44 year old assigned male at with a history of IVDU (cocaine) and recent left lower leg cellulitis presenting to the emergency department today with positive blood cultures. Patient's physical exam was as noted in the physical exam portion of this note. Patient's blood work showed 1/2 positive blood culture for gram-positive cocci in clusters; MRSA negative but SA positive from his visit on 04/13/2025, WBC count 8.2 (yesterday 7.9), neut% 68.7 (66.8 66.8), ESR 20, and CRP 3.96. Patient's left lower leg x-ray from 04/13/2025 showed no acute process. Patient's left lower extremity US on 04/13/2025 showed no acute process. Patient's left lower leg CT scan today showed evidence of cellulitis but no abscess. I spoke with the hospitalist team who agreed to admission. Patient's clinical presentation is not consistent with sepsis (@1730). Patient given IV Vanc + Zosyn for left lower leg cellulitis. I explained my physical exam findings as well as all test results to the patient. I answered all questions asked by the patient. Patient verbalized agreement and understanding with this treatment plan and admission. Differential Diagnosis Differential Diagnoses: The differential diagnosis associated with the presentation includes Left lower leg cellulitis Admission/Observation Consideration of admission/observation: Escalation of care including admission/observation considered Patient admitted as noted in the MDM Rationale portion of this note. Consult Healthcare Provider Management of the patient was discussed with: Hospitalist (agreed to admission as noted in the MDM Rationale portion of this note.) Lab Data [facility] Lab Attestation statement: I reviewed the patient's lab results. My interpretation of these results are in the MDM Rationale portion of this note. 04/14/25 15:40 04/14/25 15:40 Labs: Lab Results 04/14/25 Range/Units 15:40 WBC 8.2 (4.8-10.8) X10*3/uL RBC 4.02 L (4.60-5.80) X10*6/uL Hgb 12.0 L (14.0-18.0) g/dl Hct 34.3 L (42.0-52.0) % MCV 85.3 (80.0-98.0) fL MCH 29.9 (27.0-33.0) pg MCHC 35.0 (31.0-36.0) g/dl RDW 13.0 (11.0-16.0) % Plt Count 262 (160-400) X10*3/uL MPV 9.2 L (9.4-12.4) fL Immature Gran % (Auto) 0.1 (0.0-0.4) % Neut % (Auto) 68.7 (45-73) % Lymph % (Auto) 15.0 L (20-40) % [place] % (Auto) 9.7 (2-11) % Eos % (Auto) 5.5 H (0-4) % Baso % (Auto) 1.0 (0-2) % Lymph # (Auto) 1.2 (1.2-4.9) X10*3/uL [place] # (Auto) 0.8 (0.1-1.2) X10*3/uL Eos # (Auto) 0.5 H (0.0-0.4) X10*3/uL Baso # (Auto) 0.1 (0.0-0.2) X10*3/uL Abs Immat Gran (auto) 0.01 (0.00-0.03) X10*3/uL Absolute Neuts (auto) 5.7 (2.0-8.3) x10*3/uL Absolute Nucleated RBC 0.000 (0.0-0.012) X10*3/uL Nucleated RBC % (auto) 0.0 (0.0-0.2) /100WBC ESR 20 H (0-15) MM/HR Sodium 141 (135-145) mmol/L Potassium 3.8 (3.3-5.1) mmol/L Chloride 107 (96-108) mmol/L Carbon Dioxide 23 (22-29) mmol/L Anion Gap 15 (12-20) BUN 21 H (9-16) mg/dL Creatinine 0.84 (0.5-1.4) mg/dL Estim Creat Clear Calc 138.8 Estimated GFR > 60 Random Glucose 142 H (60-115) mg/dL Lactic Acid 1.4 (0.5-2.0) mmol/L Calcium 8.8 (8.4-10.2) mg/dL C-Reactive Protein 3.96 H (< or = 0.50) mg/dL Independent Interpretation I performed an independent interpretation of an: CT Scan Interpretation: My interpretation is in agreement with the radiologist's impression of this imaging study. Report Number: [id number]: Total DLP = 361.00 mGy-cm CLINICAL HISTORY: pain, swelling, concern for abscess CT LEFT TIBIA AND FIBULA WITH CONTRAST Comparison: None Findings: Axial images were obtained from the distal femur through the hindfoot. Sagittal and coronal reformatted images are also submitted for review. Diffuse extensive subcutaneous edema. No wall enhancing or measurable fluid collection. No deep or superficial gas lobules. No foreign body. No erosive or resorptive bony changes. No acute fracture or dislocation. Impression: 1. Extensive cellulitic changes. 2. No evidence for abscess, necrotizing fasciitis or acute osteomyelitis. This document has been electronically signed by: Sita Rizzo DO on 04/14/2025 17:22:58 Dictated By: Sita Rizzo MD Signed By: Electronically signed by Sita Rizzo MD 04/14/25 1723 Radiology Impression Discussion of test interpretation with radiology: I have reviewed the radiologist's reading. Critical Care Time Critical Care Time Critical Care Time: Yes Total Critical Care Time: 36 Attestation: I spent 36 minutes of Critical Care Time with this patient. This does not include time spent on separately reported billable procedures. Discharge Plan Discharge Clinical Impression: Cellulitis of left leg, Positive blood culture Patient Disposition: Admitted As Inpatient Print Language: Bulgarian
[2025-04-14 15:47] LABS: MANUAL DIFF FLAG NO
[2025-04-14 15:49] LABS: Basophils Absolute Auto 0.1 X10*3/uL (0.0-0.2); Eosinophils Absolute Auto 0.5 X10*3/uL (0.0-0.4); Eosinophils Percent Auto 5.5 % (0-4); Hematocrit 34.3 % (42.0-52.0); Imm Gran Abs Auto 0.01 X10*3/uL (0.00-0.03); Imm Gran Pct Auto 0.1 % (0.0-0.4); Lymphocytes Absolute Auto 1.2 X10*3/uL (1.2-4.9); Mean Corpuscular Hemoglobin 29.9 pg (27.0-33.0); Mean Corpuscular Volume 85.3 fL (80.0-98.0); Mean Platelet Volume 9.2 fL (9.4-12.4); Monocytes Absolute Auto 0.8 X10*3/uL (0.1-1.2); Monocytes Percent Auto 9.7 % (2-11); Neutrophils Absolute Auto 5.7 x10*3/uL (2.0-8.3); Neutrophils Percent Auto 68.7 % (45-73); Platelet Count 262 X10*3/uL (160-400); Red Blood Count 4.02 X10*6/uL (4.60-5.80); White Blood Count 8.2 X10*3/uL (4.8-10.8)
[2025-04-14 15:59] LABS: Anion Gap 15 (12-20); Blood Urea Nitrogen 21 mg/dL (9-16); Calcium 8.8 mg/dL (8.4-10.2); Carbon Dioxide 23 mmol/L (22-29); Chloride 107 mmol/L (96-108); Creatinine Clr Calc Pharmacy 138.8; Estimated Glomerular Filt Rate > 60; Glucose Random 142 mg/dL (60-115); Potassium 3.8 mmol/L (3.3-5.1); Sodium 141 mmol/L (135-145)
[2025-04-14 16:00] LABS: Lactic Acid 1.4 mmol/L (0.5-2.0)
[2025-04-14 16:39] LABS: C Reactive Protein 3.96 mg/dL (< or = 0.50)
[2025-04-14] MEDS: Piperacillin Sodium/Tazobactam 3.375 GM in 0.9 % Sodium Chloride 50 ML IV (16:40)
[2025-04-14 16:43] VITALS: BP 112/56; PULSE 73; RESP 16; TEMP 36.8; O2SAT 99
[2025-04-14] MEDS: iohexoL 350 MG/ML 100 ML INFUS..BTL 85 ML IV (16:47)
[2025-04-14] MEDS: vancomycin HCL 1,000 MG in 0.9 % Sodium Chloride 250 ML 270 MG IV (17:06)
[2025-04-14] MEDS: Nicotine 21 MG PATCH.TD24 TRANSDERMA (17:11)
[2025-04-14 17:22] LABS: Erythrocyte Sedimentation Rate 20 MM/HR (0-15)
--- NOTE | 2025-04-14 17:53 | P.HPHOSP_ITS ---
History of Present Illness Date of Service: 04/14/25 Chief Complaint: positive blood culture 44M PMH IVDA (cocaine) presented with LLE erythema, pain and drainage on day prior to presentation, was discharged from ED with abx, now called to come back due to MSSA found in 1/2 blood cultures. Patient states he injured his left leg on a nail work 2 weeks prior to presentation. Was treating himself with topical care. Noted some drainage and erythema worsening without any fevers so he came to the ED day prior to presentation. No signs of systemic infection was given oral antibiotics at discharge. Blood cultures were obtained at the time and came back with PCR positive for staph aureus negative for MRSA so he was called to come back. Review of Systems 2 Review of Systems: Yes all other systems are reviewed and are negative [facility] Medical History (Updated 04/14/25 @ 17:56 by Johnny Singh MD) MSSA bacteremia Opioid use disorder Social History Household Members: Family Housing: House Do you presently have visiting nurse or other home services: No Patient Tobacco Use Status: Current everyday Tobacco user Cigarette Packs Per Day: 1 Cigarettes Per Day: 20.0 Smoked in Last 30 Days: Yes Use of substances other than those prescribed or required for medical reasons: Yes Substance Use Type: Crack/Cocaine Substance Use Frequency: Daily Last Used Substance: Days (ago) Advance Directives: No Advance Directives Information Provided: Yes Do you have a plan to hurt others: No Plan service: No Meds Allergies Allergy/AdvReac Type Severity Reaction Status Date / Time No Known Allergies Allergy Verified 04/14/25 15:07 [No Known Allergies*] Active Medications: Current Medications Acetaminophen (Acetaminophen 325 Mg Tablet) 650 mg PO Q6H PRN PRN Reason: Pain, Mild 1-3,fever,headache Calcium Carbonate (Calcium Carbonate 750 Mg Tab.Chew) 750 mg PO Q4H PRN PRN Reason: Heartburn Enoxaparin Sodium (Enoxaparin Sodium 40 Mg/0.4 Ml Syringe) 40 mg SUBCUT Q24H [facility] Cefazolin Sodium/Dextrose (Ancef) 2 gm in 50 mls @ 100 mls/hr IV Q8H [facility] Magnesium Hydroxide (Milk Of Magnesia 30 Ml Oral.Susp) 30 ml PO DAILY PRN PRN Reason: Constipation Melatonin (Melatonin 3 Mg Tablet) 6 mg PO BEDTIME PRN PRN Reason: Insomnia Sodium Chloride (0.9 % Sodium Chloride Flush 3 Ml Syringe) 3 ml IVFLUSH QSHIFT [facility] Home Medications ?Medication ?Instructions ?Recorded ?Confirmed ?Last Taken ?Type acetaminophen 325 mg tablet 650 mg PO Q6H PRN fever/pain 01/30/24 01/30/24 Unknown History Physical Exam 2 Vital Signs and Narrative: Vital Signs: Last Vital Signs Temp 98.3 F 04/14/25 16:43 Pulse 73 04/14/25 16:43 Resp 16 04/14/25 16:43 BP 112/56 L 04/14/25 16:43 Pulse Ox 99 04/14/25 16:43 O2 Del Method Room Air 04/14/25 16:43 BMI result Body Mass Index 23.0 General: AO X 3, no acute distress Resp: CTA bilateral, no accessory muscles used CVS: S1,S2,RRR GI: soft, non tender, non distended Neuro: motor grossly intact, alert Psych: appropriate affect, appropriate insight LLE erythema (see ed note) Results Labs 04/14/25 15:40 04/14/25 15:40 Labs: Laboratory Results - last 24 hr 04/14/25 15:40 MCV 85.3 MCH 29.9 MCHC 35.0 RDW 13.0 Plt Count 262 MPV 9.2 L Immature Gran % (Auto) 0.1 Neut % (Auto) 68.7 Lymph % (Auto) 15.0 L [place] % (Auto) 9.7 Eos % (Auto) 5.5 H Baso % (Auto) 1.0 Lymph # (Auto) 1.2 [place] # (Auto) 0.8 Eos # (Auto) 0.5 H Baso # (Auto) 0.1 Abs Immat Gran (auto) 0.01 Absolute Neuts (auto) 5.7 Absolute Nucleated RBC 0.000 Nucleated RBC % (auto) 0.0 ESR 20 H Anion Gap 15 Estim Creat Clear Calc 138.8 Estimated GFR > 60 Random Glucose 142 H Lactic Acid 1.4 Calcium 8.8 C-Reactive Protein 3.96 H Assessment and Plan (1) MSSA bacteremia: Status: Acute Plan 44M PMH IVDA (cocaine) presented with LLE erythema, pain and drainage on day prior to presentation, was discharged from ED with abx, now called to come back due to MSSA found in 1/2 blood cultures Left lower extremity cellulitis complicated by MSSA bacteremia No sepsis IV Ancef, follow up repeat cultures, echo, ID IVDA and cocaine dependence Addiction eval DVT prophylaxis Lovenox Full Code Quality Stroke Does the patient have a stroke diagnosis?: No VTE Prior VTE?: No VTE Risk Level:: Medical - moderate - high VTE Device Contraindication: Treatment Not Indicated VTE Drug Contraindication: N/A - Med Ordered
[2025-04-14 18:01] VITALS: BP 108/56; PULSE 75; RESP 14; TEMP 36.7; O2SAT 99
[2025-04-14] MEDS: ceFAZolin Sodium/Dextrose,Iso 2 GM/50 ML PIGGYBACK IV (18:16)
--- NOTE | 2025-04-14 18:20 | PHA.MEDREC ---
Pharmacy Consult ? Medication Reconciliation Pharmacy has completed the medication reconciliation.Med rec complete, patient states he does not take anything at home for meds, but was recently prescribed 2 antibiotics which he started and had last dose this morning
--- NOTE | 2025-04-14 19:37 | PC.NURSE ---
this rn assumed care of pt, pt sleeping in stretcher, respirations even and unlabored.
[2025-04-15 01:04] VITALS: BP 127/73; PULSE 73; RESP 18; TEMP 36.7; O2SAT 99
[2025-04-15] MEDS: 0.9 % Sodium Chloride Flush 3 ML SYRINGE IVFLUSH ×4 (01:23→20:39)
[2025-04-15] MEDS: traMADoL HCL 50 MG TABLET PO (01:23)
[2025-04-15] MEDS: ceFAZolin Sodium/Dextrose,Iso 2 GM/50 ML PIGGYBACK IV ×3 (01:23→17:29)
--- NOTE | 2025-04-15 01:26 | PC.NURSE ---
pt reporting 10/10 left leg pain, aware, pt medicated per jan, tolerated whole well with water.
[2025-04-15 04:45] VITALS: BP 109/63; PULSE 67; RESP 16; O2SAT 98
[2025-04-15 06:32] LABS: Hematocrit 36.3 % (42.0-52.0); Hemoglobin 12.4 g/dl (14.0-18.0); Mean Corpuscular HGB Conc 34.2 g/dl (31.0-36.0); Mean Corpuscular Hemoglobin 29.4 pg (27.0-33.0); Mean Platelet Volume 9.4 fL (9.4-12.4); Platelet Count 260 X10*3/uL (160-400); Red Blood Count 4.22 X10*6/uL (4.60-5.80); White Blood Count 7.1 X10*3/uL (4.8-10.8)
[2025-04-15 06:50] LABS: Anion Gap 10 (12-20); Blood Urea Nitrogen 12 mg/dL (9-16); Calcium 8.6 mg/dL (8.4-10.2); Carbon Dioxide 26 mmol/L (22-29); Chloride 106 mmol/L (96-108); Creatinine Clr Calc Pharmacy 155.5; Estimated Glomerular Filt Rate > 60; Glucose Random 106 mg/dL (60-115); Sodium 138 mmol/L (135-145)
[2025-04-15 08:00] VITALS: BP 130/73; PULSE 76; RESP 13; TEMP 37.2; O2SAT 99
--- NOTE | 2025-04-15 08:02 | P.PNIM_ITS ---
Subjective Subjective Date of Service: 04/15/25 Interval History: unchanged Physical Exam 2 Vital Signs: Vital Signs: Last Vital Signs Temp 98.1 F 04/15/25 01:04 Pulse 67 04/15/25 04:45 Resp 16 04/15/25 04:45 BP 109/63 04/15/25 04:45 Pulse Ox 98 04/15/25 04:45 O2 Del Method Room Air 04/15/25 04:45 BMI result Body Mass Index 23.0 General: AO X 3, no acute distress Resp: CTA bilateral, no accessory muscles used CVS: S1,S2,RRR GI: soft, non tender, non distended Neuro: motor grossly intact, alert Psych: appropriate affect, appropriate insight LLE erythema (see ed note) Objective Data Active Medications Acetaminophen (Acetaminophen 325 Mg Tablet) 650 mg PO Q6H PRN PRN Reason: Pain, Mild 1-3,fever,headache Calcium Carbonate (Calcium Carbonate 750 Mg Tab.Chew) 750 mg PO Q4H PRN PRN Reason: Heartburn Enoxaparin Sodium (Enoxaparin Sodium 40 Mg/0.4 Ml Syringe) 40 mg SUBCUT Q24H [facility] Cefazolin Sodium/Dextrose (Ancef) 2 gm in 50 mls @ 100 mls/hr IV Q8H [facility] Last Infusion: 04/15/25 01:53 Dose: Infused Documented By: ROVERTO Magnesium Hydroxide (Milk Of Magnesia 30 Ml Oral.Susp) 30 ml PO DAILY PRN PRN Reason: Constipation Melatonin (Melatonin 3 Mg Tablet) 6 mg PO BEDTIME PRN PRN Reason: Insomnia Sodium Chloride (0.9 % Sodium Chloride Flush 3 Ml Syringe) 3 ml IVFLUSH QSHIFT [facility] Last Admin: 04/15/25 01:23 Dose: 3 ml Documented By: ROVERTO Tramadol HCl (Tramadol Hcl 50 Mg Tablet) 50 mg PO Q6H PRN PRN Reason: Pain, Severe (Pain Scale 7-10) Last Admin: 04/15/25 01:23 Dose: 50 mg Documented By: ROVERTO Labs 04/15/25 06:19 04/15/25 06:19 Labs: Laboratory Results - last 24 hr 04/14/25 04/15/25 15:40 06:19 MCV 85.3 86.0 MCH 29.9 29.4 MCHC 35.0 34.2 RDW 13.0 13.0 Plt Count 262 260 MPV 9.2 L 9.4 Immature Gran % (Auto) 0.1 Neut % (Auto) 68.7 Lymph % (Auto) 15.0 L [place] % (Auto) 9.7 Eos % (Auto) 5.5 H Baso % (Auto) 1.0 Lymph # (Auto) 1.2 [place] # (Auto) 0.8 Eos # (Auto) 0.5 H Baso # (Auto) 0.1 Abs Immat Gran (auto) 0.01 Absolute Neuts (auto) 5.7 Absolute Nucleated RBC 0.000 0.000 Nucleated RBC % (auto) 0.0 0.0 ESR 20 H Anion Gap 15 10 L Estim Creat Clear Calc 138.8 155.5 Estimated GFR > 60 > 60 Random Glucose 142 H 106 Lactic Acid 1.4 Calcium 8.8 8.6 Magnesium 2.0 C-Reactive Protein 3.96 H Assessment and Plan (1) Cellulitis of left leg: Status: Acute (2) MSSA bacteremia: Status: Acute Plan 44M PMH IVDA (cocaine) presented with LLE erythema, pain and drainage on day prior to presentation, was discharged from ED with abx, now called to come back due to MSSA found in 1/2 blood cultures Left lower extremity cellulitis complicated by MSSA bacteremia No sepsis IV Ancef, follow up repeat cultures, echo, ID IVDA and cocaine dependence Addiction eval DVT prophylaxis Lovenox Full Code reason for continued hospitalization:bacteremia Quality Stroke Does the patient have a stroke diagnosis?: No VTE Prior VTE?: No VTE Risk Level:: Medical - moderate - high VTE Device Contraindication: Treatment Not Indicated VTE Drug Contraindication: N/A - Med Ordered
[2025-04-15 08:43] VITALS: BP 135/63; PULSE 78; RESP 18; TEMP 36.3; O2SAT 100
[2025-04-15 08:50] VITALS: BMI 22.8
[2025-04-15] MEDS: Enoxaparin Sodium 40 MG/0.4 ML SYRINGE SUBCUT (09:22)
[2025-04-15] MEDS: Nicotine 21 MG PATCH.TD24 TRANSDERMA (09:53)
[2025-04-15] MEDS: LORazepam 0.5 MG TABLET PO ×2 (14:08→18:01)
--- NOTE | 2025-04-15 15:23 | MHC.CM.PN ---
PT REPORTS HE LIVES WITH HIS AUNT AND IS INDEPENDENT WITH CARE HE HAS NO SERVICES AND NO DME PT DOES NOT WANT TO COMPLETE A HCP HE DOES NOT HAVE A PCP AND ASKS IF CM CAN ATTEMPT TO MAKE HIM AN APPT WITH ONE TASK SENT TO [facility] PT STATES HE HAS INSURANCE AND PROVIDED CARD, COPY MADE AND TASK SENT TO BILLING DCP: HOME VIA SELF TRANSPORT
[2025-04-15 15:30] VITALS: BP 128/66; PULSE 81; RESP 16; TEMP 37.3; O2SAT 99
[2025-04-15] MEDS: oxyCODONE HCl Immed Release 5 MG TABLET PO (19:18)
[2025-04-15 19:37] VITALS: BP 134/64; PULSE 77; RESP 18; TEMP 37.5; O2SAT 97
[2025-04-15] MEDS: diazePAM 10 MG/2 ML CARTRIDGE 5 MG IVPUSH (20:39)
--- NOTE | 2025-04-15 21:34 | PC.NURSE ---
1999 pt states he is withdrawing and would like something ordered. notified Valium 5mg IV x ordered.
[2025-04-16] MEDS: ceFAZolin Sodium/Dextrose,Iso 2 GM/50 ML PIGGYBACK IV (01:58)
[2025-04-16 03:12] VITALS: BP 116/71; PULSE 74; RESP 18; TEMP 36; O2SAT 99
[2025-04-16 06:53] VITALS: BP 117/71; PULSE 59; RESP 16; TEMP 36.3; O2SAT 98
[2025-04-16] MEDS: oxyCODONE HCl Immed Release 5 MG TABLET PO (06:57)
[2025-04-16] MEDS: Enoxaparin Sodium 40 MG/0.4 ML SYRINGE SUBCUT (06:57)
[2025-04-16] MEDS: Nicotine 21 MG PATCH.TD24 TRANSDERMA (06:58)
[2025-04-16] MEDS: 0.9 % Sodium Chloride Flush 3 ML SYRINGE IVFLUSH (06:58)
--- NOTE | 2025-04-16 08:06 | P.DS_ITS ---
DS: Providers Provider Date of Service: 04/16/25 Date of admission: 04/14/25 17:42 Date of discharge: 04/16/25 Primary care physician: None Physician Consults: 04/14/25 17:43 Consult to Infectious Diseases Routine Consulting Provider: [facility] [place] [facility] Reason for consultation: mssa bacteremia 04/14/25 17:53 Addiction Medicine Provider Routine Consulting Provider: Addiction Covering Reason for consultation: cocaine 04/15/25 08:54 Consult to Wound Care Routine Reason for consultation: LLE wound, cellulitis 04/15/25 08:58 Addiction Medicine Provider Routine Consulting Provider: Addiction Covering Reason for consultation: cocaine DS: Diagnosis Discharge Diagnosis (1) Cellulitis of left leg: Status: Acute (2) MSSA bacteremia: Status: Acute DS: Summary Hospital Course Hospital Course: from initial hpi: 44M PMH IVDA (cocaine) presented with LLE erythema, pain and drainage on day prior to presentation, was discharged from ED with abx, now called to come back due to MSSA found in 1/2 blood cultures. Patient states he injured his left leg on a nail work 2 weeks prior to presentation. Was treating himself with topical care. Noted some drainage and erythema worsening without any fevers so he came to the ED day prior to presentation. No signs of systemic infection was given oral antibiotics at discharge. Blood cultures were obtained at the time and came back with PCR positive for staph aureus negative for MRSA so he was called to come back. hospital course: Patient was admitted for left lower extremity cellulitis complicated by MSSA bacteremia. Was treated with IV cefazolin, repeat cultures have been negative so far, plan was for Infectious Disease evaluation, echocardiogram and likely 4 weeks of IV antibiotics, however, patient decided to leave against medical advice he was able to express understanding of the risks of doing so. For IV drug abuse and cocaine dependence did not remained to see Addiction team. noted to be positive for HCV, if not treated in past, should follow up for treatment. Time Attestation Discharge Coordination Time (in mins): 32 Quality: Safe Use of Opioids Does Pt have an Active Cancer Diagnosis on the Problem List?: No Quality: Stroke Does the patient have a stroke diagnosis?: No Physical Exam Vital Signs: Vital Signs: Last Vital Signs Temp 97.4 F 04/16/25 06:53 Pulse 59 04/16/25 06:53 Resp 16 04/16/25 06:53 BP 117/71 04/16/25 06:53 Pulse Ox 98 04/16/25 06:53 O2 Del Method Room Air 04/16/25 06:53 BMI result Body Mass Index 22.8 General: AO X 3, no acute distress Resp: CTA bilateral, no accessory muscles used CVS: S1,S2,RRR GI: soft, non tender, non distended Neuro: motor grossly intact, alert Psych: appropriate affect, appropriate insight LLE erythema (see ed note) DS: Data Data Completed and Pending Labs on day of discharge: Preliminary micro results at discharge 04/14/25 16:19 Blood Culture - Preliminary Blood - Venous No growth after 24 hours. 04/14/25 15:40 Blood Culture - Preliminary Blood - Venous No growth after 24 hours. Discharge Plan Discharge Anticipated Discharge Date/Time: 04/16/25 08:04 Patient Disposition: Left Against Medical Advice Discharge Diagnosis: mssa bacteremia Referrals: Physician,None [Primary Care Provider] - 1 Week Discharge Medications: Continued cefadroxil 500 mg capsule 500 mg PO BID 10 Days Qty: 20 0RF Discontinued sulfamethoxazole-trimethoprim [Bactrim DS] 800-160 mg tablet 1 tab PO BID 10 Days Qty: 20 0RF Discharge Orders: Discharge Order (Routine); Ordered 04/16/25 Ordered By: Johnny Singh Diet: Advance to usual diet Activity on Discharge: As tolerated Print Language: Nepali Care Plan Goals: recovery Health Concerns: bacteremia Plan of Treatment: cannot optimally treat with pills, but would finish course of cefadroxil (can stop bactrim) Assessment: see above Discharge Date/Time: 04/16/25 08:51
--- NOTE | 2025-04-16 08:13 | MHC.CM.PN ---
PT LEAVING AMA
[2025-04-16 08:28] LABS: HBS Num1 24.28 mIU/mL (0-7.99); HBc Num1 0.22 S/CO (0.00-0.79); HBsAGNum1 0.52 S/CO (0.00-0.99); HIV AB/AG Nonreactive (Nonreactive); HIV Num 1 0.07 S/CO (0.00-0.99); Hepatitis B Core Antibody Nonreactive (Nonreactive); Hepatitis B Surface Antigen Negative (Negative); ~HepC Num1 10.97 S/CO (0.00-0.79); ~Hepatitis B Surface Antibody REACTIVE (Nonreactive); ~Hepatitis C Antibody Reactive (Nonreactive)
== END 2025-04-16 08:51 | disposition left against medical advice (07) | DRG 603 ==
LOC: HO.ED 17:45 → HO.EDOVER 17:58 → HO.S3 04-15 07:47
PROVIDERS: Physician Assistant; Physician Assistant Medical; Admitting Provider Internal Medicine; Emergency Provider Emergency Medicine; Visit Provider Internal Medicine
DX: L03.116 Cellulitis of left lower limb (principal); R78.81 Bacteremia; F14.20 Cocaine dependence, uncomplicated; F17.210 Nicotine dependence, cigarettes, uncomplicated; Z71.6 Tobacco abuse counseling; B95.61 Methicillin susceptible Staphylococcus aureus infection as the cause of diseases classified elsewhere; B19.20 Unspecified viral hepatitis C without hepatic coma
CPT/HCPCS: 36415; 73701; 80048; 83605; 83735; 85025; 85027; 85652; 86140; 86704; 86706; 86803; 87040; 87340; 87389; 99285; J0690; J1650; J2543; J3360; J3370; Q9967

== ENCOUNTER → 2025-04-14 16:11 | Outpatient (BNV) | payer OTHER, SELFPAY | PROVIDERS: Emergency Provider Emergency Medicine; Visit Provider Internal Medicine | DX: R78.81 Bacteremia (principal); B95.61 Methicillin susceptible Staphylococcus aureus infection as the cause of diseases classified elsewhere | CPT/HCPCS: 99223; 99232; 99239 ==

== ENCOUNTER → 2025-04-14 16:20 | Outpatient (BNV) | payer OTHER, SELFPAY | PROVIDERS: Admitting Provider Internal Medicine; Emergency Provider Emergency Medicine; Visit Provider Radiology Diagnostic Radiology | DX: R22.42 Localized swelling, mass and lump, left lower limb (principal) | CPT/HCPCS: 73701 ==

== ENCOUNTER 2025-04-20 13:06 | Inpatient (IN) | payer MEDICAID, SELFPAY ==
--- NOTE | ~2025-04-20 | US_ITS ---
EXAMINATION: US LOWER EXTREMITY VEINS LIMITED FOLLOW UP LEFT HISTORY: Left leg redness COMPARISON: Comparison is made with the prior examination dated 04/13/2025. TECHNIQUE: Duplex and color Doppler sonographic examination of the deep venous system of the left lower extremity was performed. FINDINGS: The common femoral, superficial femoral, and popliteal veins are patent demonstrating normal compressibility, spontaneous flow, and augmentation. There is a normal color and spectral Doppler waveform appearance of the visualized deep venous system above the knee. The posterior tibial and peroneal veins are patent. Prominent left inguinal lymph nodes are unchanged measuring up to 2.3 x 0.7 x 2.4 cm. US/US venous duplex LE LT IMPRESSION: No evidence of acute DVT in the left lower extremity. Electronically signed by: Hector Aguilar MD 04/20/2025 02:11 PM EDT
--- NOTE | ~2025-04-20 | XR_ITS ---
EXAMINATION: Left tibia and fibula. CLINICAL INDICATION: Left leg redness and ostomy colitis. COMPARISON: None. FINDINGS: There is no visible acute fracture, dislocation or subluxation seen. No bony abnormality. The soft tissues are normal. XR/XR tibia fibula LT 2V IMPRESSION: Unremarkable left tibia and fibula. Electronically signed by: Anastacio Santizo MD 04/20/2025 02:34 PM EDT
[2025-04-20 13:13] VITALS: BP 151/86; PULSE 92; RESP 18; TEMP 36.9; O2SAT 98; BMI 21.7
--- NOTE | 2025-04-20 13:19 | ED_ITS ---
HPI - General Adult General Chief complaint: General Medical Stated complaint: L Leg Infection Time Seen by Provider: 04/20/25 13:48 Source: patient and old records reviewed Mode of arrival: ambulatory Limitations: no limitations History of Present Illness ED Provider: RIAZ HERNANDEZ narrative: 44 yo male with PMH of active IVDA use, cellulitis of LLE just seen here and admitted with + 1/2 BCx MSSA on 04/13 subsequent cultures negative he left on 04/16 prior to ID consult and ECHO but he continued his oral bactrim and cephalosporin. He states he had to leave due to family issue. He comes back today with c/o worsening leg swelling that comes and goes. He feels like it is getting worse. He has no fevers, chest pain, dyspnea. MD complaint: left leg cellulitis Onset (ago): day(s) (8) Location: left and lower extremity Radiation: non-radiation Severity: moderate Quality: aching Pain Consistency: intermittent Relieving factors: immobilization Exacerbating factors: movement Associated symptoms: denies other symptoms Treatments prior to arrival: other Related Data Home Medications ?Medication ?Instructions ?Recorded ?Confirmed ibuprofen 200 mg tablet 400 mg PO Q6H PRN Pain 04/20/25 04/20/25 Previous Rx's ?Medication ?Instructions ?Recorded cefadroxil 500 mg capsule 500 mg PO BID 10 days #20 caps 04/13/25 sulfamethoxazole 800 1 tab PO BID 10 days #20 tabs 04/13/25 mg-trimethoprim 160 mg tablet (Bactrim DS) Allergies Allergy/AdvReac Type Severity Reaction Status Date / Time No Known Allergies Allergy Verified 04/20/25 13:17 [No Known Allergies*] Review of Systems 2 Review of Systems: Constitutional : No Fever, No Chills ENT/Mouth : No sore throat, No Rhinorrhea Eyes: No Eye Pain, No Swelling, No Redness Cardiovascular : No Chest Pain, No SOB, pos edema Respiratory : No Cough, No Sputum Gastrointestinal : No Nausea, No Vomiting, No Diarrhea, No abdominal Pain Genitourinary : No Dysuria, No Hematuria Musculoskeletal : No joint pain, No Myalgias, No Joint Swelling Skin : No Skin Lesions, positive skin rash Neuro : No Weakness, No Numbness, No Headache All other systems reviewed and are negative PMFSH Past Medical History Attestation statement: The following information was validated with the patient. Source: old records reviewed Medical History (Updated 04/21/25 @ 13:51 by Kaylie Wong CNP) MSSA bacteremia Opioid use disorder Social History Social History Household Members: Family Household Members Other:: aunt Housing: House Do you presently have visiting nurse or other home services: No Patient Tobacco Use Status: Current everyday Tobacco user Tobacco use type: Cigarette Cigarette Packs Per Day: 1 Cigarettes Per Day: 20 Substance Use Type: Marijuana and Opiates service: No Physical Exam ED Vital Signs: Vital Signs - 24 hr 04/20/25 13:13 Temperature 98.4 F Pulse Rate 92 Respiratory Rate 18 Blood Pressure 151/86 H Pulse Oximetry 98 Oxygen Delivery Method Room Air BMI result Body Mass Index 21.7 Appearance: Alert. Oriented X3. No acute distress. Eyes: Pupils equal, round and reactive to light. ENT: Pharynx normal. Neck: Normal inspection. Neck supple. CVS: Normal heart rate and rhythm. Pulses normal. Respiratory: No respiratory distress. Breath sounds normal. Abdomen: Soft and nontender. Skin: Skin warm and dry. Normal skin color. Normal skin turgor. Extremities: LLE is about 2 times the size of RLE there is no crepitus, pulses intact, there is no abscess noted, it is red and hot circumferential Neuro: Oriented X 3. No motor deficit. No sensory deficit. CN2-12 intact Course Course Course Narrative: RME: 44-year-old male history of substance abuse have been cleaned for 4 years had a recent labs presents to ED for worsening left leg redness and swelling. Patient was discharged with left leg cellulitis but did not finish his antibiotic and symptoms worsen. Patient also states he took heroin cocaine today. Patient requesting detox. Labs UA x-ray ordered. Medications Administered Generic Name Dose Route Start Last Admin Trade Name Freq PRN Reason Stop Dose Admin Enoxaparin Sodium 40 mg 04/20/25 18:45 04/21/25 18:09 Enoxaparin Sodium 40 Mg/0.4 Ml Syringe SUBCUT 40 mg Q24H NELI Administration Hydroxyzine HCl 50 mg 04/21/25 13:49 04/21/25 18:20 Hydroxyzine Hcl 50 Mg Tablet PO 50 mg Q8H PRN Administration Anxiety Cefazolin Sodium/Dextrose 2 gm in 50 mls @ 100 mls/hr 04/21/25 14:00 04/21/25 21:10 Ancef IV 100 mls/hr 5XD NELI Administration Sodium Chloride 3 ml 04/21/25 00:00 04/21/25 15:47 0.9 % Sodium Chloride Flush 3 Ml Syringe IVFLUSH 3 ml QSHIFT NELI Administration Discontinued Medications Generic Name Dose Route Start Last Admin Trade Name Jaida PRN Reason Stop Dose Admin Cefazolin Sodium 1 gm 04/20/25 13:48 04/20/25 14:51 Cefazolin Sodium 1 Gm Vial IVPUSH 04/20/25 13:49 1 gm ONCE ONE Administration Cefazolin Sodium/Dextrose 2 gm in 50 mls @ 100 mls/hr 04/21/25 02:00 04/21/25 05:57 Ancef IV Infused Q12H NELI Infusion Methadone HCl 30 mg 04/20/25 19:00 04/20/25 20:19 Methadone Hcl 20 Mg/2 Ml Oral.Conc PO 04/20/25 19:01 30 mg ONCE ONE Administration Methadone HCl 30 mg 04/21/25 09:55 04/21/25 10:05 Methadone Hcl 20 Mg/2 Ml Oral.Conc PO 04/21/25 09:56 30 mg ONCE ONE Administration Nicotine 21 mg 04/21/25 09:56 04/21/25 10:05 Nicotine 21 Mg Patch.Td24 TRANSDERMA 04/21/25 09:57 21 mg ONCE ONE Administration Medical Decision Making Medical Decision Making MDM Narrative: 44 yo male with PMH of active IVDA use, cellulitis of LLE just seen here and admitted with + 1/2 BCx MSSA on 04/13 who left AMA on 04/16 he swears he is taking the two antibiotics but he notes his swelling and redness are not getting better. It also mentions he needs an ECHO. At this time I am going to obtain basic labs, infl markers, DVT study - he has no signs of compartment syndrome, crepitus. I suspect he is not taking his abx and this outpatient failure. Given his labs today I will consult Dr. Wlels about ECHO needs Differential Diagnosis Differential Diagnoses: The differential diagnosis associated with the presentation includes cellulitis, noncompliance, bacteremia Admission/Observation Consideration of admission/observation: Escalation of care including admission/observation considered admit for suspect non compliance and IV abx Consult Healthcare Provider Management of the patient was discussed with: Hospitalist (will admit) and Orthotics Technician (Dr. Wells asked about need for ECHO - she states currently not at this time) Lab Data MDM Lab Attestation statement: I reviewed the patient's lab results. 04/20/25 13:36 04/20/25 13:36 Labs: Lab Results 04/20/25 04/20/25 Range/Units 13:36 13:38 WBC 7.0 (4.8-10.8) X10*3/uL RBC 4.48 L (4.60-5.80) X10*6/uL Hgb 13.4 L (14.0-18.0) g/dl Hct 37.9 L (42.0-52.0) % MCV 84.6 (80.0-98.0) fL MCH 29.9 (27.0-33.0) pg MCHC 35.4 (31.0-36.0) g/dl RDW 12.7 (11.0-16.0) % Plt Count 336 D (160-400) X10*3/uL MPV 8.7 L (9.4-12.4) fL Immature Gran % (Auto) 0.3 (0.0-0.4) % Neut % (Auto) 70.0 (45-73) % Lymph % (Auto) 22.3 (20-40) % [place] % (Auto) 4.6 (2-11) % Eos % (Auto) 1.9 (0-4) % Baso % (Auto) 0.9 (0-2) % Lymph # (Auto) 1.6 (1.2-4.9) X10*3/uL [place] # (Auto) 0.3 (0.1-1.2) X10*3/uL Eos # (Auto) 0.1 (0.0-0.4) X10*3/uL Baso # (Auto) 0.1 (0.0-0.2) X10*3/uL Abs Immat Gran (auto) 0.02 (0.00-0.03) X10*3/uL Absolute Neuts (auto) 4.9 (2.0-8.3) x10*3/uL Absolute Nucleated RBC 0.000 (0.0-0.012) X10*3/uL Nucleated RBC % (auto) 0.0 (0.0-0.2) /100WBC ESR 17 H (0-15) MM/HR Sodium 137 (135-145) mmol/L Potassium 4.5 (3.3-5.1) mmol/L Chloride 103 (96-108) mmol/L Carbon Dioxide 28 (22-29) mmol/L Anion Gap 11 L (12-20) BUN 18 H (9-16) mg/dL Creatinine 0.96 (0.5-1.4) mg/dL Estim Creat Clear Calc 114.8 Estimated GFR > 60 Random Glucose 108 (60-115) mg/dL Lactic Acid 0.6 (0.5-2.0) mmol/L Calcium 9.6 D (8.4-10.2) mg/dL Total Bilirubin 0.5 (0.0-1.0) mg/dL AST 35 (5-37) U/L ALT 18 (0-40) U/L Alkaline Phosphatase 66 (39-117) U/L C-Reactive Protein 0.40 (< or = 0.50) mg/dL Total Protein 7.8 (6.5-8.0) g/dL Albumin 4.2 (3.5-5.0) g/dL Ethyl Alcohol < 10 mg/dL Independent Interpretation I performed an independent interpretation of an: Plain X-Ray (normal ) and Ultrasound (no DVT) Radiology Impression Discussion of test interpretation with radiology: I have reviewed the radiologist's reading. Independent Historian Clinical information obtained from an independent historian. History obtained from or confirmed by: Other External Record Review External record reviewed: Inpatient record Discharge Plan Discharge Clinical Impression: Cellulitis of left leg, MSSA bacteremia Patient Disposition: Admitted As Inpatient Interventions: Admission Worksheet (ED) Last Done: 04/21/25 07:36 Discharge Date/Time: 04/21/25 12:15
[2025-04-20 13:45] LABS: MANUAL DIFF FLAG NO
[2025-04-20 13:47] LABS: Basophils Absolute Auto 0.1 X10*3/uL (0.0-0.2); Basophils Percent Auto 0.9 % (0-2); Eosinophils Absolute Auto 0.1 X10*3/uL (0.0-0.4); Eosinophils Percent Auto 1.9 % (0-4); Hematocrit 37.9 % (42.0-52.0); Hemoglobin 13.4 g/dl (14.0-18.0); Imm Gran Abs Auto 0.02 X10*3/uL (0.00-0.03); Imm Gran Pct Auto 0.3 % (0.0-0.4); Lymphocytes Absolute Auto 1.6 X10*3/uL (1.2-4.9); Lymphocytes Percent Auto 22.3 % (20-40); Mean Corpuscular HGB Conc 35.4 g/dl (31.0-36.0); Mean Corpuscular Hemoglobin 29.9 pg (27.0-33.0); Mean Corpuscular Volume 84.6 fL (80.0-98.0); Mean Platelet Volume 8.7 fL (9.4-12.4); Monocytes Absolute Auto 0.3 X10*3/uL (0.1-1.2); Monocytes Percent Auto 4.6 % (2-11); Neutrophils Absolute Auto 4.9 x10*3/uL (2.0-8.3); Platelet Count 336 X10*3/uL (160-400); Red Blood Count 4.48 X10*6/uL (4.60-5.80); Red Cell Distribution Width 12.7 % (11.0-16.0)
[2025-04-20 14:00] LABS: Lactic Acid 0.6 mmol/L (0.5-2.0)
[2025-04-20 14:01] LABS: Alanine Aminotransferase 18 U/L (0-40); Albumin Level 4.2 g/dL (3.5-5.0); Alkaline Phosphatase 66 U/L (39-117); Anion Gap 11 (12-20); Aspartate Amino Transferase 35 U/L (5-37); Bilirubin Total 0.5 mg/dL (0.0-1.0); Blood Urea Nitrogen 18 mg/dL (9-16); Calcium 9.6 mg/dL (8.4-10.2); Carbon Dioxide 28 mmol/L (22-29); Chloride 103 mmol/L (96-108); Creatinine Clr Calc Pharmacy 114.8; Estimated Glomerular Filt Rate > 60; Ethanol < 10 mg/dL; Glucose Random 108 mg/dL (60-115); Potassium 4.5 mmol/L (3.3-5.1); Sodium 137 mmol/L (135-145); Total Protein 7.8 g/dL (6.5-8.0)
--- NOTE | 2025-04-20 14:16 | PC.NURSE ---
Pt delaying care at this time because he's on the phone, trying to sort out his insurance at this time; pt pleasant, but insistent on handling insurance issue on the phone first; aware
[2025-04-20 14:27] LABS: Erythrocyte Sedimentation Rate 17 MM/HR (0-15)
[2025-04-20] MEDS: ceFAZolin Sodium 1 GM VIAL IVPUSH (14:51)
[2025-04-20 16:24] VITALS: BP 105/56; PULSE 66; RESP 15; TEMP 36.9; O2SAT 100
--- NOTE | 2025-04-20 16:34 | PHA.MEDREC ---
Addendum entered by Man Wagner [facility] 04/20/25 16:37: Med rec reviewed Original Note: Pharmacy Consult ? Medication Reconciliation Pharmacy has completed the medication reconciliation. Spoke with pt and he confirmed his medications. Pt confirmed he started the Cefadroxil and Sulfamethoxazole-Trimethoprim [Bactrim DS] Wednesday and has been taking them twice a day together.
--- NOTE | 2025-04-20 18:43 | PM.IMHP ---
History of Present Illness Date of Service: 04/20/25 Attending physician on admission: Madison Law Chief Complaint: Worsening left leg infection Pt is a 44-year-old male with a PMH significant for?opioid use disorder with current IVDU who presents to the ED with?worsening left lower leg swelling, erythema, and pain. Pt initially presented to the ED on 04/13/2025 with redness, swelling, and pain in left leg after injuring it on a kate nail at work 2 weeks prior to presentation. Was discharged home on p.o. antibiotics but called back to the ED after 1/2 blood cultures came back positive for MSSA bacteremia. Was treated with IV cefazolin with repeat negative cultures, and plan was for echocardiogram, ID consultation, and likely 4 weeks of IV antibiotics, though pt left AMA and was discharged on cefadroxil 500mg bid x10 days. Pt reports was compliant with meds but lower leg erythema and swelling has worsened. Has noticed some clear drainage from open wound, but no purulent discharge. Denies fever or chills. No other symptoms. Denies nausea, vomiting, abdominal pain. No SOB or difficulty breathing. Denies chest pain/pressure, palpitations. No change to bowel or bladder habits. In the ED pt with elevated HR of 92, vitals otherwise stable and WNL. Labs were overall grossly unremarkable and around baseline for pt. No leukocytosis. Stable normocytic anemia of 13.4/37.9. No significant electrolyte abnormalities. Renal function WNL. Hepatic function WNL. X-ray of left tibia and fibula unremarkable. Left lower extremity U/S venous duplex negative for DVT. Pt was treated in the ED with cefazolin IV. Pt is admitted to the hospital for treatment and further evaluation of left lower extremity cellulitis and MSSA bacteremia that failed outpatient therapy. Review of Systems Review of Systems: Negative except for that which is stated in the HPI. [facility] Medical History MSSA bacteremia Opioid use disorder Social History Household Members: Family Housing: House Do you presently have visiting nurse or other home services: No Patient Tobacco Use Status: Current everyday Tobacco user Cigarette Packs Per Day: 1 Cigarettes Per Day: 20 Smoked in Last 30 Days: Yes Use of substances other than those prescribed or required for medical reasons: Yes Substance Use Type: Marijuana and Opiates Substance Use Frequency: Chronic Longstanding Last Used Substance: Unknown Any prior treatment program specific to substance use: Yes Advance Directives: No Advance Directives Information Provided: Yes Do you have a plan to hurt others: No Plan service: No Meds Allergies Allergy/AdvReac Type Severity Reaction Status Date / Time No Known Allergies Allergy Verified 04/20/25 13:17 [No Known Allergies*] Active Medications: Current Medications Acetaminophen (Acetaminophen 325 Mg Tablet) 650 mg PO Q6H PRN PRN Reason: Pain, Mild 1-3,fever,headache Calcium Carbonate (Calcium Carbonate 750 Mg Tab.Chew) 750 mg PO Q4H PRN PRN Reason: Heartburn Enoxaparin Sodium (Enoxaparin Sodium 40 Mg/0.4 Ml Syringe) 40 mg SUBCUT Q24H NELI Cefazolin Sodium/Dextrose (Ancef) 2 gm in 50 mls @ 100 mls/hr IV Q12H NELI Magnesium Hydroxide (Milk Of Magnesia 30 Ml Oral.Susp) 30 ml PO DAILY PRN PRN Reason: Constipation Melatonin (Melatonin 3 Mg Tablet) 6 mg PO BEDTIME PRN PRN Reason: Insomnia Methadone HCl (Methadone Hcl 20 Mg/2 Ml Oral.Conc) 30 mg PO ONCE ONE Stop: 04/20/25 18:43 Sodium Chloride (0.9 % Sodium Chloride Flush 3 Ml Syringe) 3 ml IVFLUSH QSHIFT [facility] Home Medications ?Medication ?Instructions ?Recorded ?Confirmed ?Last Taken ?Type ibuprofen 200 mg tablet 400 mg PO Q6H PRN Pain 04/20/25 04/20/25 Unknown History Physical Exam Vital Signs and Narrative: Vital Signs: Last Vital Signs Temp 98.4 F 04/20/25 16:24 Pulse 66 04/20/25 16:24 Resp 15 04/20/25 16:24 BP 105/56 L 04/20/25 16:24 Pulse Ox 100 04/20/25 16:24 O2 Del Method Room Air 04/20/25 16:24 BMI result Body Mass Index 21.7 General: AOx3, no acute distress Resp: CTA bilaterally CVS: S1, S2, RRR GI: +BS, NT, no distention Skin: Warm, dry Neuro: Cranial nerves II-XII grossly intact bilaterally. Motor grossly intact bilaterally Extremities: Left lower extremity with significant pitting edema, erythema, warmth, and open lesion draining serous fluid as pictured below. Mild induration surrounding open lesion, though no fluctuance noted. Psych: Appropriate affect Results Labs 04/20/25 13:36 04/20/25 13:36 Labs: Laboratory Results - last 24 hr 04/20/25 04/20/25 13:36 13:38 MCV 84.6 MCH 29.9 MCHC 35.4 RDW 12.7 Plt Count 336 D MPV 8.7 L Immature Gran % (Auto) 0.3 Neut % (Auto) 70.0 Lymph % (Auto) 22.3 [place] % (Auto) 4.6 Eos % (Auto) 1.9 Baso % (Auto) 0.9 Lymph # (Auto) 1.6 [place] # (Auto) 0.3 Eos # (Auto) 0.1 Baso # (Auto) 0.1 Abs Immat Gran (auto) 0.02 Absolute Neuts (auto) 4.9 Absolute Nucleated RBC 0.000 Nucleated RBC % (auto) 0.0 ESR 17 H Anion Gap 11 L Estim Creat Clear Calc 114.8 Estimated GFR > 60 Random Glucose 108 Lactic Acid 0.6 Calcium 9.6 D Total Bilirubin 0.5 AST 35 ALT 18 Alkaline Phosphatase 66 C-Reactive Protein 0.40 Total Protein 7.8 Albumin 4.2 Ethyl Alcohol < 10 Imaging Radiologist's Impressions: Impressions Venous Duplex 04/20/25 13:43 IMPRESSION: No evidence of acute DVT in the left lower extremity. Electronically signed by: Hector Aguilar MD 04/20/2025 02:11 PM EDT RP Tibia/Fibula X-Ray 04/20/25 14:25 IMPRESSION: Unremarkable left tibia and fibula. Electronically signed by: Anastacio Santizo MD 04/20/2025 02:34 PM EDT RP Assessment and Plan (1) MSSA bacteremia: Status: Acute (2) Cellulitis of left leg: Status: Acute Plan Pt is a 44-year-old male with a PMH significant for?opioid use disorder with current IVDU who presents to the ED with?worsening left lower leg swelling, erythema, and pain. Pt is admitted to the hospital for treatment and further evaluation of left lower extremity cellulitis and MSSA bacteremia that failed outpatient therapy. Left lower extremity cellulitis and MSSA bacteremia Secondary to cutting leg on kate nail 3 weeks ago Initially presented to ED on 04/13 and discharged on Bactrim DS and cefadroxil 500 mg b.i.d. x10 days Called back to the ED due to 1/2 blood cultures positive for MSSA bacteremia Admitted to the hospital on 04/14/2025, left AMA 04/16/2025 on cefadroxil 5 mg b.i.d. times 10 days Reports compliance with home abx with worsening swelling, redness, pain No sepsis: one episode of HR of 92, but no fever, tachypnea, or leukocytosis; lactic acid WNL Will treat with cefazolin 2 g IV q.12, started 04/20/2025 Repeat blood cultures on 04/14 negative, follow blood cultures from today Will get echocardiogram Opiate use disorder with IVDU Currently not on methadone We will give methadone 30 mg tonight Addiction medicine consult additional dosing Monitor on COWS Hepatitis C Unclear if treated Follow up outpatient Full Code Attending:?Dr. Law DVT Prophylaxis: Lovenox Pt will require a hospitalization of at least two nights for treatment of?left lower extremity cellulitis and MSSA bacteremia that failed outpatient therapy and will therefore require IV antibiotics. Quality Stroke Does the patient have a stroke diagnosis?: No VTE Prior VTE?: No VTE Risk Level:: Medical - moderate - high VTE Device Contraindication: Treatment Not Indicated VTE Drug Contraindication: N/A - Med Ordered
[2025-04-20] MEDS: methADONE HCl 20 MG/2 ML ORAL.CONC 30 MG PO (20:19)
[2025-04-20] MEDS: Enoxaparin Sodium 40 MG/0.4 ML SYRINGE SUBCUT (20:20)
[2025-04-20 23:31] VITALS: BP 111/58; PULSE 62; RESP 18; TEMP 36.5; O2SAT 98
[2025-04-21] VITALS (8 sets, daily range): BP systolic 102–139; BP diastolic 48–66; PULSE 58–83; RESP 16–18; TEMP 36.4–36.9; O2SAT 97–100; BMI 23.1
[2025-04-21] MEDS: ceFAZolin Sodium/Dextrose,Iso 2 GM/50 ML PIGGYBACK IV ×4 (03:30→21:10)
[2025-04-21] MEDS: 0.9 % Sodium Chloride Flush 3 ML SYRINGE IVFLUSH ×3 (03:30→15:47)
[2025-04-21 06:44] LABS: Amphetamine Screen Urine Not Detected (Not Detect); Barbiturates, Urine Not Detected (Not Detect); Benzodiazepines Screen Urine Not Detected (Not Detect); Buprenorphine Scr Not Detected (Not Detect); Cannabinoid Screen Urine POSITIVE (Not Detect); Cocaine Screen Urine POSITIVE (Not Detect); Fentanyl, urine POSITIVE (Not Detect); Methadone Screen, Urine Positive (Not Detect); Opiate Screen Urine POSITIVE (Not Detect); Oxycodone Screen Urine Not Detected (Not Detect); Phencyclidine Screen Urine Not Detected (Not Detect)
[2025-04-21] MEDS: methADONE HCl 20 MG/2 ML ORAL.CONC 30 MG PO (10:05)
[2025-04-21] MEDS: Nicotine 21 MG PATCH.TD24 TRANSDERMA (10:05)
--- NOTE | 2025-04-21 11:36 | HO.PM.IMPN ---
Subjective Subjective Date of Service: 04/21/25 Interval History: L leg infection improved; no fever; very antsy about being stuck in hospital Review of Systems Review of Systems: Yes all other systems are reviewed and are negative Physical Exam Vital Signs: Vital Signs: Last Vital Signs Temp 97.8 F 04/21/25 10:19 Pulse 64 04/21/25 10:19 Resp 16 04/21/25 10:19 BP 117/56 L 04/21/25 10:19 Pulse Ox 98 04/21/25 10:19 O2 Del Method Room Air 04/21/25 10:19 BMI result Body Mass Index 21.7 Gen: in no acute distress HEENT: sclera anicteric, moist mucus membranes Neck: supple Lungs: clear to auscultation bilaterally Heart: regular rate and rhythm, no murmurs Abd: soft, non-tender, non-distended Ext: no edema Skin: warm/well-perfused; erythema, warmth, and induration surrounding medial left lower leg wound; serous drainage without fluctuance Neuro: alert and oriented x3, no focal findings Psych: appropriate affect Objective Data Active Medications Acetaminophen (Acetaminophen 325 Mg Tablet) 650 mg PO Q6H PRN PRN Reason: Pain, Mild 1-3,fever,headache Calcium Carbonate (Calcium Carbonate 750 Mg Tab.Chew) 750 mg PO Q4H PRN PRN Reason: Heartburn Enoxaparin Sodium (Enoxaparin Sodium 40 Mg/0.4 Ml Syringe) 40 mg SUBCUT Q24H [facility] Last Admin: 04/20/25 20:20 Dose: 40 mg Documented By: LOUIS Cefazolin Sodium/Dextrose (Ancef) 2 gm in 50 mls @ 100 mls/hr IV Q12H [facility] Last Infusion: 04/21/25 05:57 Dose: Infused Documented By: LOUIS Magnesium Hydroxide (Milk Of Magnesia 30 Ml Oral.Susp) 30 ml PO DAILY PRN PRN Reason: Constipation Melatonin (Melatonin 3 Mg Tablet) 6 mg PO BEDTIME PRN PRN Reason: Insomnia Sodium Chloride (0.9 % Sodium Chloride Flush 3 Ml Syringe) 3 ml IVFLUSH QSHIFT [facility] Last Admin: 04/21/25 10:07 Dose: 3 ml Documented By: JANICE Labs 04/20/25 13:36 04/20/25 13:36 Labs: Laboratory Results - last 24 hr 04/20/25 04/20/25 04/21/25 13:36 13:38 06:27 MCV 84.6 MCH 29.9 MCHC 35.4 RDW 12.7 Plt Count 336 D MPV 8.7 L Immature Gran % (Auto) 0.3 Neut % (Auto) 70.0 Lymph % (Auto) 22.3 [place] % (Auto) 4.6 Eos % (Auto) 1.9 Baso % (Auto) 0.9 Lymph # (Auto) 1.6 [place] # (Auto) 0.3 Eos # (Auto) 0.1 Baso # (Auto) 0.1 Abs Immat Gran (auto) 0.02 Absolute Neuts (auto) 4.9 Absolute Nucleated RBC 0.000 Nucleated RBC % (auto) 0.0 ESR 17 H Anion Gap 11 L Estim Creat Clear Calc 114.8 Estimated GFR > 60 Random Glucose 108 Lactic Acid 0.6 Calcium 9.6 D Total Bilirubin 0.5 AST 35 ALT 18 Alkaline Phosphatase 66 C-Reactive Protein 0.40 Total Protein 7.8 Albumin 4.2 Urine Opiates Screen POSITIVE H Ur Buprenorphine Scrn Not Detected Ur Oxycodone Screen Not Detected Urine Methadone Screen Positive H Urine Fentanyl Screen POSITIVE H Ur Barbiturates Screen Not Detected Ur Phencyclidine Scrn Not Detected Ur Amphetamines Screen Not Detected U Benzodiazepines Scrn Not Detected Urine Cocaine Screen POSITIVE H U Marijuana (THC) Screen POSITIVE H Ethyl Alcohol < 10 Assessment and Plan (1) Cellulitis of left leg: Status: Acute (2) MSSA bacteremia: Status: Acute Plan d2 for 44-year-old male with a PMH significant for?opioid use disorder with current IVDU who presents to the ED with?worsening left lower leg swelling, erythema, and pain. Pt is admitted to the hospital for treatment and further evaluation of left lower extremity cellulitis and MSSA bacteremia that failed outpatient therapy LLE cellulitis/MSSA bacteremia - secondary to nail injury + injection drug use - initially presented to ED on 04/13 and discharged on Bactrim DS and cefadroxil - called back to the ED due to 1/2 blood cultures positive for MSSA - admitted to the hospital on 04/14/2025, left AMA 04/16/2025 on cefadroxil - presented this time with worsening swelling, redness and pain despite taking medications - not septic - continue IV cefazolin 04/20-; repeat BCx from 04/14 negative, repeat BCx from 04/20 pending - ID consult + TTE pending opioid abuse - methadone, Addiction Medicine consult HCV antibody positive - outpt follow-up VTE ppx - enoxaparin dispo - will need midline/PICC + STR for antibiotic therapy In my clinical judgment, the patient requires continued inpatient hospitalization for the following reasons: IV ABX Total time managing care of this patient today: 35 minutes. Quality Stroke Does the patient have a stroke diagnosis?: No VTE Prior VTE?: No VTE Risk Level:: Medical - moderate - high VTE Device Contraindication: Treatment Not Indicated VTE Drug Contraindication: N/A - Med Ordered
--- NOTE | 2025-04-21 13:17 | MHC.CM.PN ---
pt lives with his aunt is not involved with any community services pts care is in the [facility] parking lot pt started on methadone here dc plan home
--- NOTE | 2025-04-21 13:51 | HO.ADDICTCON ---
History of Present Illness Date of Service: 04/21/2025 Chief Complaint: LLE Cellulitis Reason for Consult: OUD Sources of Information: patient interviewed and chart reviewed HPI Narrative: Patient is a 44 year old male with history of OUD, medically admitted with lower extremity cellulitis. Consult requested to to assess and treat substance use. Patient seen in room 384, GF present during interview (patient agreeable to this). He reports almost 20 year history of OUD with one lifetime overdose He denies any history of ATS, [facility] admissions Reports being incarcerated approx 4- 5 years ago and during that time was initiated on methadone States his therapeutic dose was 60mg. Prior to being released he transitioned to buprenorphine and eventually Sublocade. Unclear how many injections he received. [facility] shows last Sublocade rx filled 09/2023. 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 Last use was prior to coming to ED Reports history of IVDU Reports cocaine use. Deneis alcohol use, or any other substance use While in ED he recieved 2 doses of methadone 30mg on 04/20, and 30mg 04/21. He reports methadone has been very helpful Identified most bothersome withdrawal sx as being irritability and anxiety as well as restless legs Discussed methadone dose titration and patient agreeable to this--would also like to be referred to [facility] for continuation of treatment Labs reviewed HIV-, Hep C+ pending VL Review of Systems Constitutional: Reports as per HPI and Reports difficulty sleeping Gastrointestinal: Denies loose stools and Denies nausea Musculoskeletal: Reports back pain Psychiatric: Reports anxiety Diagnostics Vital Signs (24Hr): Vital Signs - 24 hr 04/20/25 16:24 04/20/25 23:31 04/21/25 05:50 Temperature 98.4 F 97.7 F Pulse Rate 66 62 Respiratory Rate 15 18 16 Blood Pressure 105/56 L 111/58 L Pulse Oximetry 100 98 Oxygen Delivery Method Room Air Room Air 04/21/25 08:15 04/21/25 10:19 04/21/25 12:26 Temperature 97.5 F 97.8 F 97.7 F Pulse Rate 67 64 71 Respiratory Rate 16 16 18 Blood Pressure 102/48 L 117/56 L 129/63 Pulse Oximetry 98 98 100 Oxygen Delivery Method Room Air Room Air Room Air BMI result Body Mass Index 23.1 Labs 04/20/25 13:36 04/20/25 13:36 Labs: Laboratory Results - last 48 hr 04/20/25 04/20/25 04/21/25 13:36 13:38 06:27 WBC 7.0 RBC 4.48 L Hgb 13.4 L Hct 37.9 L MCV 84.6 MCH 29.9 MCHC 35.4 RDW 12.7 Plt Count 336 D MPV 8.7 L Immature Gran % (Auto) 0.3 Neut % (Auto) 70.0 Lymph % (Auto) 22.3 [place] % (Auto) 4.6 Eos % (Auto) 1.9 Baso % (Auto) 0.9 Lymph # (Auto) 1.6 [place] # (Auto) 0.3 Eos # (Auto) 0.1 Baso # (Auto) 0.1 Abs Immat Gran (auto) 0.02 Absolute Neuts (auto) 4.9 Absolute Nucleated RBC 0.000 Nucleated RBC % (auto) 0.0 ESR 17 H Sodium 137 Potassium 4.5 Chloride 103 Carbon Dioxide 28 Anion Gap 11 L BUN 18 H Creatinine 0.96 Estim Creat Clear Calc 114.8 Estimated GFR > 60 Random Glucose 108 Lactic Acid 0.6 Calcium 9.6 D Total Bilirubin 0.5 AST 35 ALT 18 Alkaline Phosphatase 66 C-Reactive Protein 0.40 Total Protein 7.8 Albumin 4.2 Urine Opiates Screen POSITIVE H Ur Buprenorphine Scrn Not Detected Ur Oxycodone Screen Not Detected Urine Methadone Screen Positive H Urine Fentanyl Screen POSITIVE H Ur Barbiturates Screen Not Detected Ur Phencyclidine Scrn Not Detected Ur Amphetamines Screen Not Detected U Benzodiazepines Scrn Not Detected Urine Cocaine Screen POSITIVE H U Marijuana (THC) Screen POSITIVE H Ethyl Alcohol < 10 Imaging Radiology Impressions: ITS Impressions Venous Duplex 04/20/25 13:43 IMPRESSION: No evidence of acute DVT in the left lower extremity. Electronically signed by: Hector Aguilar MD 04/20/2025 02:11 PM EDT RP Tibia/Fibula X-Ray 04/20/25 14:25 IMPRESSION: Unremarkable left tibia and fibula. Electronically signed by: Anastacio Santizo MD 04/20/2025 02:34 PM EDT RP Mental Status Exam Mental Status Exam Level of Consciousness: Awake, Appropriate and Alert Patient Behavior: Appropriate, Talkative and Cooperative Affect Description: Appropriate and Anxious Speech Pattern: Clear Thought Process: Intact Thought Content: positive for Intact Medications Medications Current Medications Acetaminophen (Acetaminophen 325 Mg Tablet) 650 mg PO Q6H PRN PRN Reason: Pain, Mild 1-3,fever,headache Calcium Carbonate (Calcium Carbonate 750 Mg Tab.Chew) 750 mg PO Q4H PRN PRN Reason: Heartburn Enoxaparin Sodium (Enoxaparin Sodium 40 Mg/0.4 Ml Syringe) 40 mg SUBCUT Q24H [facility] Last Admin: 04/20/25 20:20 Dose: 40 mg Hydroxyzine HCl (Hydroxyzine Hcl 50 Mg Tablet) 50 mg PO Q8H PRN PRN Reason: Anxiety Cefazolin Sodium/Dextrose (Ancef) 2 gm in 50 mls @ 100 mls/hr IV 5XD [facility] Magnesium Hydroxide (Milk Of Magnesia 30 Ml Oral.Susp) 30 ml PO DAILY PRN PRN Reason: Constipation Melatonin (Melatonin 3 Mg Tablet) 6 mg PO BEDTIME PRN PRN Reason: Insomnia Methadone HCl (Methadone Hcl 20 Mg/2 Ml Oral.Conc) 15 mg PO DAILY PRN PRN Reason: Opiate Withdrawal Sodium Chloride (0.9 % Sodium Chloride Flush 3 Ml Syringe) 3 ml IVFLUSH QSHIFT [facility] Last Admin: 04/21/25 10:07 Dose: 3 ml Tizanidine HCl (Tizanidine Hcl 4 Mg Tablet) 4 mg PO Q8H PRN PRN Reason: Restlessness Allergies Allergies Allergy/AdvReac Type Severity Reaction Status Date / Time No Known Allergies Allergy Verified 04/20/25 13:17 [No Known Allergies*] Assessment & Plan Assessment & Plan (1) Opioid use disorder: Status: Acute Code(s): F11.90 - Opioid use, unspecified, uncomplicated Assessment and Plan: methadone 15mg PRN dose for today if needed AM dose 45mg (will adjust depending on dosing reminder of today) encourage PRNs as needed for anxiety and restless legs (two main sx as reported by patient) seo associate to meet with patient and gather additional information to send referral to [facility] for continuation of treatment post discharge Total time managing care of this patient today _45___ minutes. [facility] Past Medical History Medical History (Updated 04/21/25 @ 13:51 by Kaylie Wong CNP) MSSA bacteremia Opioid use disorder Social History Social History Household Members: Family Household Members Other:: aunt Housing: House Do you presently have visiting nurse or other home services: No Patient Tobacco Use Status: Current everyday Tobacco user Tobacco use type: Cigarette Cigarette Packs Per Day: 1 Cigarettes Per Day: 20 Substance Use Type: Marijuana and Opiates service: No
--- NOTE | 2025-04-21 14:13 | HO.SKINPHOTO ---
Location:Left Lower Extremity Category: Stage: Length: Width: Depth: cm Location: Category: Stage: Length: Width: Depth: cm Location: Category: Stage: Length: Width: Depth: cm Location: Category: Stage: Length: Width: Depth: cm Location: Category: Stage: Length: Width: Depth: cm Location: Category: Stage: Length: Width: Depth: cm Area cleaned with normal saline, pat dry, gauze 4X4 and gauze wrap.
[2025-04-21] MEDS: Enoxaparin Sodium 40 MG/0.4 ML SYRINGE SUBCUT (18:09)
[2025-04-21] MEDS: hydrOXYzine HCL 50 MG TABLET PO (18:20)
[2025-04-22] VITALS: PULSE 65
[2025-04-22] MEDS: 0.9 % Sodium Chloride Flush 3 ML SYRINGE IVFLUSH ×4 (01:17→20:54)
[2025-04-22 03:07] VITALS: BP 111/53; PULSE 58; RESP 17; TEMP 36.1; O2SAT 98
[2025-04-22] MEDS: hydrOXYzine HCL 50 MG TABLET PO ×2 (03:12→14:35)
[2025-04-22] MEDS: ceFAZolin Sodium/Dextrose,Iso 2 GM/50 ML PIGGYBACK IV ×5 (06:17→20:55)
--- NOTE | 2025-04-22 07:41 | P.PNIM_ITS ---
Subjective Subjective Date of Service: 04/22/25 Interval History: Sitting in bed, appears comfortable No complaints reported though states he does not want to go to a facility for fpc abx. Does however acknowledge treating his infection is forefront Physical Exam 2 Vital Signs: Vital Signs: Last Vital Signs Temp 97.0 F 04/22/25 03:07 Pulse 58 04/22/25 03:07 Resp 17 04/22/25 03:07 BP 111/53 L 04/22/25 03:07 Pulse Ox 98 04/22/25 03:07 O2 Del Method Room Air 04/22/25 03:07 BMI result Body Mass Index 23.1 Gen: in no acute distress HEENT: sclera anicteric, moist mucus membranes Neck: supple Lungs: clear to auscultation bilaterally Heart: regular rate and rhythm, no murmurs Abd: soft, non-tender, non-distended Ext: no edema Skin: warm/well-perfused; erythema, warmth, and induration surrounding medial left lower leg wound; serous drainage without fluctuance now wrapped in sterile gauze Neuro: alert and oriented x3, no focal findings Psych: appropriate affect Objective Data Active Medications Acetaminophen (Acetaminophen 325 Mg Tablet) 650 mg PO Q6H PRN PRN Reason: Pain, Mild 1-3,fever,headache Calcium Carbonate (Calcium Carbonate 750 Mg Tab.Chew) 750 mg PO Q4H PRN PRN Reason: Heartburn Enoxaparin Sodium (Enoxaparin Sodium 40 Mg/0.4 Ml Syringe) 40 mg SUBCUT Q24H [facility] Last Admin: 04/21/25 18:09 Dose: 40 mg Documented By: SAY Hydroxyzine HCl (Hydroxyzine Hcl 50 Mg Tablet) 50 mg PO Q8H PRN PRN Reason: Anxiety Last Admin: 04/22/25 03:12 Dose: 50 mg Documented By: ANGIE Cefazolin Sodium/Dextrose (Ancef) 2 gm in 50 mls @ 100 mls/hr IV 5XD [facility] Last Infusion: 04/22/25 06:50 Dose: Infused Documented By: ANGIE Magnesium Hydroxide (Milk Of Magnesia 30 Ml Oral.Susp) 30 ml PO DAILY PRN PRN Reason: Constipation Melatonin (Melatonin 3 Mg Tablet) 6 mg PO BEDTIME PRN PRN Reason: Insomnia Methadone HCl (Methadone Hcl 20 Mg/2 Ml Oral.Conc) 15 mg PO DAILY PRN PRN Reason: Opiate Withdrawal Methadone HCl (Methadone Hcl 20 Mg/2 Ml Oral.Conc) 45 mg PO DAILY@0800 [facility] Sodium Chloride (0.9 % Sodium Chloride Flush 3 Ml Syringe) 3 ml IVFLUSH QSHIFT [facility] Last Admin: 04/22/25 01:17 Dose: 3 ml Documented By: ANGIE Tizanidine HCl (Tizanidine Hcl 4 Mg Tablet) 4 mg PO Q8H PRN PRN Reason: Restlessness Labs 04/22/25 08:43 04/22/25 08:43 Microbiology Microbiology Results: Microbiology 04/20/25 13:36 Blood Culture - Preliminary Blood - Venous No growth after 24 hours. 04/20/25 13:36 Blood Culture - Preliminary Blood - Venous No growth after 24 hours. Assessment and Plan (1) Cellulitis of left leg: Status: Acute (2) MSSA bacteremia: Status: Acute Plan d2 for 44-year-old male with a PMH significant for?opioid use disorder with current IVDU who presents to the ED with?worsening left lower leg swelling, erythema, and pain. Pt is admitted to the hospital for treatment and further evaluation of left lower extremity cellulitis and MSSA bacteremia that failed outpatient therapy LLE cellulitis/MSSA bacteremia - secondary to nail injury + injection drug use - initially presented to ED on 04/13 and discharged on Bactrim DS and cefadroxil - called back to the ED due to 1/2 blood cultures positive for MSSA - admitted to the hospital on 04/14/2025, left AMA 04/16/2025 on cefadroxil - presented this time with worsening swelling, redness and pain despite taking medications - not septic - continue IV cefazolin 04/20-; repeat BCx from 04/14 negative, repeat BCx from 04/20 pending - ID consult + TTE pending opioid abuse - methadone, Addiction Medicine consult -has outpt appt with [facility] 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 Quality Stroke Does the patient have a stroke diagnosis?: No VTE Prior VTE?: No VTE Risk Level:: Medical - moderate - high VTE Device Contraindication: Treatment Not Indicated VTE Drug Contraindication: N/A - Med Ordered
[2025-04-22 08:00] VITALS: BP 108/62; PULSE 62; RESP 16; TEMP 36.6; O2SAT 98
[2025-04-22 08:50] LABS: MANUAL DIFF FLAG NO
[2025-04-22] MEDS: methADONE HCl 20 MG/2 ML ORAL.CONC 45 MG PO (08:50)
[2025-04-22 08:53] LABS: Basophils Absolute Auto 0.1 X10*3/uL (0.0-0.2); Basophils Percent Auto 1.5 % (0-2); Eosinophils Absolute Auto 0.4 X10*3/uL (0.0-0.4); Eosinophils Percent Auto 7.9 % (0-4); Hematocrit 39.1 % (42.0-52.0); Imm Gran Abs Auto 0.01 X10*3/uL (0.00-0.03); Imm Gran Pct Auto 0.2 % (0.0-0.4); Lymphocytes Absolute Auto 2.2 X10*3/uL (1.2-4.9); Lymphocytes Percent Auto 39.8 % (20-40); Mean Corpuscular HGB Conc 33.2 g/dl (31.0-36.0); Mean Corpuscular Hemoglobin 29.5 pg (27.0-33.0); Mean Corpuscular Volume 88.9 fL (80.0-98.0); Mean Platelet Volume 8.8 fL (9.4-12.4); Monocytes Absolute Auto 0.4 X10*3/uL (0.1-1.2); Monocytes Percent Auto 6.8 % (2-11); Neutrophils Absolute Auto 2.4 x10*3/uL (2.0-8.3); Neutrophils Percent Auto 43.8 % (45-73); Platelet Count 276 X10*3/uL (160-400); White Blood Count 5.5 X10*3/uL (4.8-10.8)
[2025-04-22 09:07] LABS: Anion Gap 10 (12-20); Blood Urea Nitrogen 18 mg/dL (9-16); Carbon Dioxide 30 mmol/L (22-29); Chloride 106 mmol/L (96-108); Creatinine Clr Calc Pharmacy 119.6; Estimated Glomerular Filt Rate > 60; Glucose Random 88 mg/dL (60-115); Potassium 4.8 mmol/L (3.3-5.1); Sodium 141 mmol/L (135-145)
--- NOTE | 2025-04-22 09:57 | HO.SKINPHOTO ---
Location: Left Lower Extremity Category: Stage: Length: Width: Depth: cm Location: Category: Stage: Length: Width: Depth: cm Location: Category: Stage: Length: Width: Depth: cm Location: Category: Stage: Length: Width: Depth: cm Location: Category: Stage: Length: Width: Depth: cm Location: Category: Stage: Length: Width: Depth: cm
[2025-04-22] MEDS: Nicotine 21 MG PATCH.TD24 TRANSDERMA (10:37)
--- NOTE | 2025-04-22 15:13 | MHC.RECOVRN ---
Met with pt in follow-up to discuss withdrawal management. Pt stated he feels his withdrawals are being managed well with his current dose of methadone. [facility] referral sent to [facility], and pt is aware. No questions/concerns by patient offered at this time. Discussed with Sarai Wong CURRICULUM AND INSTRUCTION DIRECTOR
--- NOTE | 2025-04-22 15:42 | HO.ADDICTPRO ---
Subjective Subjective Date of Service: 04/22/25 Reason For Visit: LLE Cellulitis Interim History: Patient seen in follow up for OUD and methadone dose titration Yesterday total of 30mg --did not utilize 15mg PRN dose that was available Awake, alert, pleasant Stating he feels good and had a good night. This morning received methadone 45mg Aware that he will require several weeks of IV abx Review of Systems Acute medical concerns: Yes Review of Systems Constitutional: Reports as per HPI and Reports no additional constitutional complaints Mental Status Exam Mental Status Exam Level of Consciousness: Awake, Appropriate and Alert Patient Behavior: Talkative and Cooperative Affect Description: Calm Speech Pattern: Clear Diagnostics Vital Signs (24Hr): Vital Signs - 24 hr 04/21/25 19:17 04/21/25 23:17 04/22/25 03:07 Temperature 98.1 F 97.8 F 97.0 F Pulse Rate 83 58 58 Respiratory Rate 16 16 17 Blood Pressure 139/66 114/55 L 111/53 L Pulse Oximetry 99 97 98 Oxygen Delivery Method Room Air Room Air Room Air 04/22/25 08:00 Temperature 97.9 F Pulse Rate 62 Respiratory Rate 16 Blood Pressure 108/62 Pulse Oximetry 98 Oxygen Delivery Method Room Air BMI result Body Mass Index 23.1 Labs 04/22/25 08:43 04/22/25 08:43 Labs: Laboratory Results - last 48 hr 04/21/25 04/22/25 06:27 08:43 WBC 5.5 RBC 4.40 L Hgb 13.0 L Hct 39.1 L MCV 88.9 MCH 29.5 MCHC 33.2 RDW 13.0 Plt Count 276 MPV 8.8 L Immature Gran % (Auto) 0.2 Neut % (Auto) 43.8 L Lymph % (Auto) 39.8 [place] % (Auto) 6.8 Eos % (Auto) 7.9 H Baso % (Auto) 1.5 Lymph # (Auto) 2.2 [place] # (Auto) 0.4 Eos # (Auto) 0.4 Baso # (Auto) 0.1 Abs Immat Gran (auto) 0.01 Absolute Neuts (auto) 2.4 Absolute Nucleated RBC 0.000 Nucleated RBC % (auto) 0.0 Sodium 141 Potassium 4.8 Chloride 106 Carbon Dioxide 30 H Anion Gap 10 L BUN 18 H Creatinine 0.98 Estim Creat Clear Calc 119.6 Estimated GFR > 60 Random Glucose 88 Calcium 9.0 D Urine Opiates Screen POSITIVE H Ur Buprenorphine Scrn Not Detected Ur Oxycodone Screen Not Detected Urine Methadone Screen Positive H Urine Fentanyl Screen POSITIVE H Ur Barbiturates Screen Not Detected Ur Phencyclidine Scrn Not Detected Ur Amphetamines Screen Not Detected U Benzodiazepines Scrn Not Detected Urine Cocaine Screen POSITIVE H U Marijuana (THC) Screen POSITIVE H Imaging Radiology Impressions: ITS Impressions Venous Duplex 04/20/25 13:43 IMPRESSION: No evidence of acute DVT in the left lower extremity. Electronically signed by: Hector Aguilar MD 04/20/2025 02:11 PM EDT RP Tibia/Fibula X-Ray 04/20/25 14:25 IMPRESSION: Unremarkable left tibia and fibula. Electronically signed by: Anastacio Santizo MD 04/20/2025 02:34 PM EDT RP Medications Medications Current Medications Acetaminophen (Acetaminophen 325 Mg Tablet) 650 mg PO Q6H PRN PRN Reason: Pain, Mild 1-3,fever,headache Calcium Carbonate (Calcium Carbonate 750 Mg Tab.Chew) 750 mg PO Q4H PRN PRN Reason: Heartburn Enoxaparin Sodium (Enoxaparin Sodium 40 Mg/0.4 Ml Syringe) 40 mg SUBCUT Q24H [facility] Last Admin: 04/21/25 18:09 Dose: 40 mg Hydroxyzine HCl (Hydroxyzine Hcl 50 Mg Tablet) 50 mg PO Q8H PRN PRN Reason: Anxiety Last Admin: 04/22/25 14:35 Dose: 50 mg Cefazolin Sodium/Dextrose (Ancef) 2 gm in 50 mls @ 100 mls/hr IV 5XD [facility] Last Infusion: 04/22/25 14:22 Dose: Infused Magnesium Hydroxide (Milk Of Magnesia 30 Ml Oral.Susp) 30 ml PO DAILY PRN PRN Reason: Constipation Melatonin (Melatonin 3 Mg Tablet) 6 mg PO BEDTIME PRN PRN Reason: Insomnia Methadone HCl (Methadone Hcl 20 Mg/2 Ml Oral.Conc) 45 mg PO DAILY@0800 [facility] Last Admin: 04/22/25 08:50 Dose: 45 mg Methadone HCl (Methadone Hcl 20 Mg/2 Ml Oral.Conc) 10 mg PO DAILY PRN PRN Reason: Opiate Withdrawal Nicotine (Nicotine 21 Mg Patch.Td24) 21 mg TRANSDERMA DAILY [facility] Last Admin: 04/22/25 10:37 Dose: 21 mg Sodium Chloride (0.9 % Sodium Chloride Flush 3 Ml Syringe) 3 ml IVFLUSH QSHIFT [facility] Last Admin: 04/22/25 15:10 Dose: 3 ml Tizanidine HCl (Tizanidine Hcl 4 Mg Tablet) 4 mg PO Q8H PRN PRN Reason: Restlessness Allergies Allergies Allergy/AdvReac Type Severity Reaction Status Date / Time No Known Allergies Allergy Verified 04/20/25 13:17 [No Known Allergies*] Assessment & Plan Assessment & Plan (1) Opioid use disorder: Status: Acute Code(s): F11.90 - Opioid use, unspecified, uncomplicated Assessment and Plan: continue methadone at current dose PRN dose in place --reduced to 10mg steel detailer to fax referral to [facility] --if patient does go to SNF, will require coordination of guest dosing Total time managing care of this patient today _20___ minutes.
[2025-04-22 15:46] VITALS: BP 124/58; PULSE 73; RESP 16; TEMP 36.6; O2SAT 100
[2025-04-22] MEDS: Enoxaparin Sodium 40 MG/0.4 ML SYRINGE SUBCUT (18:13)
[2025-04-22 20:00] VITALS: BP 116/67; PULSE 74; RESP 18; TEMP 36.9; O2SAT 99
[2025-04-22] MEDS: methADONE HCl 20 MG/2 ML ORAL.CONC 10 MG PO (20:50)
[2025-04-23 03:43] VITALS: BP 100/57; PULSE 53; RESP 18; TEMP 36.1; O2SAT 99
[2025-04-23] MEDS: ceFAZolin Sodium/Dextrose,Iso 2 GM/50 ML PIGGYBACK IV ×2 (05:27→09:28)
[2025-04-23 06:51] VITALS: BP 112/56; PULSE 64; RESP 16; TEMP 36.6; O2SAT 100
[2025-04-23 07:55] LABS: MANUAL DIFF FLAG NO
[2025-04-23 07:58] LABS: Basophils Absolute Auto 0.1 X10*3/uL (0.0-0.2); Basophils Percent Auto 1.6 % (0-2); Eosinophils Absolute Auto 0.5 X10*3/uL (0.0-0.4); Eosinophils Percent Auto 8.3 % (0-4); Hematocrit 36.9 % (42.0-52.0); Hemoglobin 12.4 g/dl (14.0-18.0); Imm Gran Abs Auto 0.02 X10*3/uL (0.00-0.03); Imm Gran Pct Auto 0.4 % (0.0-0.4); Lymphocytes Absolute Auto 2.4 X10*3/uL (1.2-4.9); Lymphocytes Percent Auto 42.8 % (20-40); Mean Corpuscular HGB Conc 33.6 g/dl (31.0-36.0); Mean Corpuscular Hemoglobin 29.3 pg (27.0-33.0); Mean Corpuscular Volume 87.2 fL (80.0-98.0); Mean Platelet Volume 9.3 fL (9.4-12.4); Monocytes Absolute Auto 0.5 X10*3/uL (0.1-1.2); Monocytes Percent Auto 8.5 % (2-11); Neutrophils Absolute Auto 2.1 x10*3/uL (2.0-8.3); Neutrophils Percent Auto 38.4 % (45-73); Platelet Count 283 X10*3/uL (160-400); Red Blood Count 4.23 X10*6/uL (4.60-5.80); Red Cell Distribution Width 13.2 % (11.0-16.0); White Blood Count 5.5 X10*3/uL (4.8-10.8)
[2025-04-23] MEDS: methADONE HCl 20 MG/2 ML ORAL.CONC 45 MG PO (08:04)
[2025-04-23] MEDS: Nicotine 21 MG PATCH.TD24 TRANSDERMA (08:06)
[2025-04-23] MEDS: 0.9 % Sodium Chloride Flush 3 ML SYRINGE IVFLUSH (08:09)
--- NOTE | 2025-04-23 08:09 | PM.DS ---
DS: Providers Provider Date of Service: 04/23/25 Date of admission: 04/20/25 15:20 Date of discharge: 04/23/25 Primary care physician: None Physician Consults: 04/20/25 18:42 Addiction Medicine Provider Routine Consulting Provider: Addiction Covering Reason for consultation: Opioid use disorder, not on methadone 04/21/25 08:31 Consult to Infectious Diseases Routine Consulting [place] [facility] Reason for consultation: MSSA bnacteremia 04/21/25 13:32 Inpt - Recovery Team Routine Comment: Reason for consultation: BH/KSENIA eval 04/21/25 14:15 Consult to Wound Care Routine Reason for consultation: open cellulitis wound to left lower leg Has provider been notified: Yes DS: Diagnosis Discharge Diagnosis (1) Opioid use disorder: Status: Acute DS: Summary Hospital Course Hospital Course: Chief Complaint: Worsening left leg infection Pt is a 44-year-old male with a PMH significant for?opioid use disorder with current IVDU who presents to the ED with?worsening left lower leg swelling, erythema, and pain. Pt initially presented to the ED on 04/13/2025 with redness, swelling, and pain in left leg after injuring it on a kate nail at work 2 weeks prior to presentation. Was discharged home on p.o. antibiotics but called back to the ED after 1/2 blood cultures came back positive for MSSA bacteremia. Was treated with IV cefazolin with repeat negative cultures, and plan was for echocardiogram, ID consultation, and likely 4 weeks of IV antibiotics, though pt left AMA and was discharged on cefadroxil 500mg bid x10 days. Pt reports was compliant with meds but lower leg erythema and swelling has worsened. Has noticed some clear drainage from open wound, but no purulent discharge. Denies fever or chills. No other symptoms. Denies nausea, vomiting, abdominal pain. No SOB or difficulty breathing. Denies chest pain/pressure, palpitations. No change to bowel or bladder habits. In the ED pt with elevated HR of 92, vitals otherwise stable and WNL. Labs were overall grossly unremarkable and around baseline for pt. No leukocytosis. Stable normocytic anemia of 13.4/37.9. No significant electrolyte abnormalities. Renal function WNL. Hepatic function WNL. X-ray of left tibia and fibula unremarkable. Left lower extremity U/S venous duplex negative for DVT. Pt was treated in the ED with cefazolin IV. Pt is admitted to the hospital for treatment and further evaluation of left lower extremity cellulitis and MSSA bacteremia that failed outpatient ther hospital course: The patient was admitted for treatment of MSSA bacteremia, leg cellulitis, and a wound, having previously left against medical advice (AMA) twice. While awaiting final recommendations from infectious disease specialists regarding IV antibiotics and treatment duration, the patient repeatedly threatened to leave AMA to care for his dog and refused a PICC line or rehabilitation for infusion therapy. Ultimately, he left AMA, understanding that oral antibiotics are not optimal for bloodstream infections and was advised to complete the previously prescribed antibiotics. Time Attestation Discharge Coordination Time (in mins): 45 Quality: Safe Use of Opioids Does Pt have an Active Cancer Diagnosis on the Problem List?: No Quality: Stroke Does the patient have a stroke diagnosis?: No Physical Exam Vital Signs: Vital Signs: Last Vital Signs Temp 98 F 04/23/25 06:51 Pulse 64 04/23/25 06:51 Resp 16 04/23/25 06:51 BP 112/56 L 04/23/25 06:51 Pulse Ox 100 04/23/25 06:51 O2 Del Method Room Air 04/23/25 06:51 BMI result Body Mass Index 23.1 DS: Data Data Completed and Pending Labs on day of discharge: Laboratory Results - last 24 hr 04/22/25 04/23/25 08:43 07:16 WBC 5.5 5.5 RBC 4.40 L 4.23 L Hgb 13.0 L 12.4 L Hct 39.1 L 36.9 L MCV 88.9 87.2 MCH 29.5 29.3 MCHC 33.2 33.6 RDW 13.0 13.2 Plt Count 276 283 MPV 8.8 L 9.3 L Immature Gran % (Auto) 0.2 0.4 Neut % (Auto) 43.8 L 38.4 L Lymph % (Auto) 39.8 42.8 H [place] % (Auto) 6.8 8.5 Eos % (Auto) 7.9 H 8.3 H Baso % (Auto) 1.5 1.6 Lymph # (Auto) 2.2 2.4 [place] # (Auto) 0.4 0.5 Eos # (Auto) 0.4 0.5 H Baso # (Auto) 0.1 0.1 Abs Immat Gran (auto) 0.01 0.02 Absolute Neuts (auto) 2.4 2.1 Absolute Nucleated RBC 0.000 0.000 Nucleated RBC % (auto) 0.0 0.0 Sodium 141 Potassium 4.8 Chloride 106 Carbon Dioxide 30 H Anion Gap 10 L BUN 18 H Creatinine 0.98 Estim Creat Clear Calc 119.6 Estimated GFR > 60 Random Glucose 88 Calcium 9.0 D Preliminary micro results at discharge 04/20/25 13:36 Blood Culture - Preliminary Blood - Venous No growth after 48 hours. 04/20/25 13:36 Blood Culture - Preliminary Blood - Venous No growth after 48 hours. Discharge Plan Discharge Anticipated Discharge Date/Time: 04/23/25 12:21 Patient Disposition: Left Against Medical Advice Discharge Diagnosis: MSSA bacteremia, cellulitis of leg Referrals: Physician,None [Primary Care Provider] - 1 Week Discharge Medications: No Action sulfamethoxazole-trimethoprim [Bactrim DS] 800-160 mg tablet 1 tab PO BID 10 Days Qty: 20 0RF cefadroxil 500 mg capsule 500 mg PO BID 10 Days Qty: 20 0RF ibuprofen 200 mg Tablet 400 mg PO Q6H PRN (Reason: Pain) Discharge Orders: Discharge Order (Routine); Ordered 04/23/25 Ordered By: Octaviano Mccollum Print Language: Arabic Care Plan Goals: recovery from staph bacteremia Health Concerns: bacteremia, substance use, cellulitis Plan of Treatment: continue taking Bactrim and Cefadroxil Assessment: see above Discharge Date/Time: 04/23/25 10:50
--- NOTE | 2025-04-23 08:10 | HO.PM.IMPN ---
Subjective Subjective Date of Service: 04/23/25 Interval History: f/u for mssa bacteremia, cellulitis of the leg wants to go home today to take care of his dog Physical Exam Vital Signs: Vital Signs: Last Vital Signs Temp 98 F 04/23/25 06:51 Pulse 64 04/23/25 06:51 Resp 16 04/23/25 06:51 BP 112/56 L 04/23/25 06:51 Pulse Ox 100 04/23/25 06:51 O2 Del Method Room Air 04/23/25 06:51 BMI result Body Mass Index 23.1 Gen: in no acute distress HEENT: sclera anicteric, moist mucus membranes ation bilaterally Heart: regular rate and rhythm, no murmurs Abd: soft, non-tender, non-distended Ext: no edema Skin: warm/well-perfused; erythema, warmth, and induration surrounding medial left lower leg wound; serous drainage without fluctuance now wrapped in sterile gauze, Neuro: alert and oriented x3, no focal findings Psych: appropriate affect Objective Data Active Medications Acetaminophen (Acetaminophen 325 Mg Tablet) 650 mg PO Q6H PRN PRN Reason: Pain, Mild 1-3,fever,headache Calcium Carbonate (Calcium Carbonate 750 Mg Tab.Chew) 750 mg PO Q4H PRN PRN Reason: Heartburn Enoxaparin Sodium (Enoxaparin Sodium 40 Mg/0.4 Ml Syringe) 40 mg SUBCUT Q24H [facility] Last Admin: 04/22/25 18:13 Dose: 40 mg Documented By: WALLACE Hydroxyzine HCl (Hydroxyzine Hcl 50 Mg Tablet) 50 mg PO Q8H PRN PRN Reason: Anxiety Last Admin: 04/22/25 14:35 Dose: 50 mg Documented By: WALLACE Cefazolin Sodium/Dextrose (Ancef) 2 gm in 50 mls @ 100 mls/hr IV 5XD [facility] Last Infusion: 04/23/25 06:02 Dose: Infused Documented By: KELLE Magnesium Hydroxide (Milk Of Magnesia 30 Ml Oral.Susp) 30 ml PO DAILY PRN PRN Reason: Constipation Melatonin (Melatonin 3 Mg Tablet) 6 mg PO BEDTIME PRN PRN Reason: Insomnia Methadone HCl (Methadone Hcl 20 Mg/2 Ml Oral.Conc) 45 mg PO DAILY@0800 [facility] Last Admin: 04/23/25 08:04 Dose: 45 mg Documented By: KEYSHAWN Co-signed By: HOLA Methadone HCl (Methadone Hcl 20 Mg/2 Ml Oral.Conc) 10 mg PO DAILY PRN PRN Reason: Opiate Withdrawal Last Admin: 04/22/25 20:50 Dose: 10 mg Documented By: KELLE Co-signed By: QUENTIN Nicotine (Nicotine 21 Mg Patch.Td24) 21 mg TRANSDERMA DAILY [facility] Last Admin: 04/23/25 08:06 Dose: 21 mg Documented By: KEYSHAWN Sodium Chloride (0.9 % Sodium Chloride Flush 3 Ml Syringe) 3 ml IVFLUSH QSHIFT [facility] Last Admin: 04/23/25 08:09 Dose: 3 ml Documented By: KEYSHAWN Tizanidine HCl (Tizanidine Hcl 4 Mg Tablet) 4 mg PO Q8H PRN PRN Reason: Restlessness Labs 04/23/25 07:16 04/23/25 07:16 Labs: Laboratory Results - last 24 hr 04/22/25 04/23/25 08:43 07:16 MCV 88.9 87.2 MCH 29.5 29.3 MCHC 33.2 33.6 RDW 13.0 13.2 Plt Count 276 283 MPV 8.8 L 9.3 L Immature Gran % (Auto) 0.2 0.4 Neut % (Auto) 43.8 L 38.4 L Lymph % (Auto) 39.8 42.8 H [place]mer[place] % (Auto) 6.8 8.5 Eos % (Auto) 7.9 H 8.3 H Baso % (Auto) 1.5 1.6 Lymph # (Auto) 2.2 2.4 [place] # (Auto) 0.4 0.5 Eos # (Auto) 0.4 0.5 H Baso # (Auto) 0.1 0.1 Abs Immat Gran (auto) 0.01 0.02 Absolute Neuts (auto) 2.4 2.1 Absolute Nucleated RBC 0.000 0.000 Nucleated RBC % (auto) 0.0 0.0 Anion Gap 10 L Estim Creat Clear Calc 119.6 Estimated GFR > 60 Random Glucose 88 Calcium 9.0 D Microbiology Microbiology Results: Microbiology 04/20/25 13:36 Blood Culture - Preliminary Blood - Venous No growth after 48 hours. 04/20/25 13:36 Blood Culture - Preliminary Blood - Venous No growth after 48 hours. Assessment and Plan (1) Opioid use disorder: Status: Acute (2) Cellulitis of left leg: Status: Acute (3) MSSA bacteremia: Status: Acute Plan d3 for 44-year-old male with a PMH significant for?opioid use disorder with current IVDU who presents to the ED with?worsening left lower leg swelling, erythema, and pain. Pt is admitted to the hospital for treatment and further evaluation of left lower extremity cellulitis and MSSA bacteremia that failed outpatient therapy LLE cellulitis/MSSA bacteremia - secondary to nail injury + injection drug use - initially presented to ED on 04/13 and discharged on Bactrim DS and cefadroxil - called back to the ED the next day due to 1/2 blood cultures positive for MSSA - admitted to the hospital on 04/14/2025, left AMA 04/16/2025 on cefadroxil - presented this time with worsening swelling, redness and pain despite taking medications - not septic - continue IV cefazolin 04/20-; repeat BCx from 04/14 negative, repeat BCx from 04/20 pending - ID consult + TTE pending opioid abuse - methadone, Addiction Medicine consult -has outpt appt with [facility] 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 Quality Stroke Does the patient have a stroke diagnosis?: No VTE Prior VTE?: No VTE Risk Level:: Medical - moderate - high VTE Device Contraindication: Treatment Not Indicated VTE Drug Contraindication: N/A - Med Ordered
[2025-04-23 08:11] LABS: Anion Gap 10 (12-20); Blood Urea Nitrogen 21 mg/dL (9-16); Calcium 8.9 mg/dL (8.4-10.2); Carbon Dioxide 30 mmol/L (22-29); Chloride 104 mmol/L (96-108); Creatinine Clr Calc Pharmacy 120.9; Estimated Glomerular Filt Rate > 60; Glucose Random 88 mg/dL (60-115); Potassium 4.2 mmol/L (3.3-5.1); Sodium 140 mmol/L (135-145)
--- NOTE | 2025-04-23 11:42 | HO.WOUND ---
Wound consult: not completed Patient Left hospital prior to being seen by this quality analyst/technical writer for second admission for Left leg cellulitis. Leg wound not observed.
--- NOTE | 2025-04-23 12:35 | MHC.CM.PN ---
Patient left AMA.
[2025-04-24 20:49] LABS: HCV Log PCR <1.18 NOT DETECTED Log IU/mL (NOT DETECTED); HepC Viral Load <15 NOT DETECTED IU/mL (NOT DETECTED)
== END 2025-04-23 10:50 | disposition left against medical advice (07) | DRG 383 ==
LOC: HO.ED 15:12 → HO.EDOVER 15:24 → HO.S3 04-21 11:28
PROVIDERS: Physician Assistant; Admitting Provider Student in an Organized Health Care Education/Training Program; Emergency Provider Emergency Medicine; Visit Provider Internal Medicine
DX: L03.116 Cellulitis of left lower limb (principal); R78.81 Bacteremia; F17.210 Nicotine dependence, cigarettes, uncomplicated; Z71.6 Tobacco abuse counseling; B95.61 Methicillin susceptible Staphylococcus aureus infection as the cause of diseases classified elsewhere; B19.20 Unspecified viral hepatitis C without hepatic coma; D64.9 Anemia, unspecified; F11.10 Opioid abuse, uncomplicated
CPT/HCPCS: 36415; 73590; 80048; 80053; 80307; 83605; 85025; 85652; 86140; 87040; 87522; 93971; 99285; J0690; J1650; Q9957; S9485

== ENCOUNTER → 2025-04-20 13:19 | Outpatient (BNV) | payer SELFPAY | PROVIDERS: Emergency Provider Emergency Medicine; Visit Provider Radiology Diagnostic Radiology | DX: L53.9 Erythematous condition, unspecified (principal); K94.02 Colostomy infection | CPT/HCPCS: 73590; 93971 ==

== ENCOUNTER → 2025-04-20 15:20 | Outpatient (BNV) | payer MEDICAID, SELFPAY | PROVIDERS: Admitting Provider Student in an Organized Health Care Education/Training Program; Emergency Provider Emergency Medicine; Visit Provider Student in an Organized Health Care Education/Training Program | DX: F11.90 Opioid use, unspecified, uncomplicated (principal); L03.116 Cellulitis of left lower limb; R78.81 Bacteremia; B95.61 Methicillin susceptible Staphylococcus aureus infection as the cause of diseases classified elsewhere | CPT/HCPCS: 99223; 99232; 99239; 99499 ==

== ENCOUNTER → 2025-04-20 15:20 | Outpatient (BNV) | payer SELFPAY | PROVIDERS: Admitting Provider Student in an Organized Health Care Education/Training Program; Emergency Provider Emergency Medicine; Visit Provider Nurse Practitioner Psychiatric/Mental Health | DX: F11.90 Opioid use, unspecified, uncomplicated (principal) | CPT/HCPCS: 99222; 99231 ==

== ENCOUNTER 2025-04-27 16:11 | Inpatient (IN) | payer OTHER, SELFPAY ==
--- NOTE | ~2025-04-27 | XR_ITS ---
CLINICAL HISTORY: overlying wound r o osteo Two views of the left tibia and fibula. COMPARISON: XR left lower leg dated 04/20/25 at 14:23 EDT FINDINGS: Tibia and fibula appear intact. No lytic or sclerotic lesion. No periostitis. No cortical disruption no radiopaque foreign body Soft tissue edema overlying the left ankle. Visualized portions of the left knee are clear. IMPRESSION: 1. No radiographic evidence of acute injury to the left tibia and fibula. No radiographic evidence of osteomyelitis. This document has been electronically signed by: Dameon Springer MD on 04/27/2025 17:45:30
[2025-04-27 16:44] VITALS: BP 112/66; PULSE 75; RESP 16; TEMP 36.7; O2SAT 98; BMI 23.6
--- NOTE | 2025-04-27 16:48 | ED.GENADULT ---
HPI - General Adult General Chief complaint: Extremity Problem Stated complaint: infection in left leg was seen before for same Time Seen by Provider: 04/27/25 21:15 Source: patient Mode of arrival: ambulatory Limitations: no limitations History of Present Illness ED Provider: HPI narrative: 44 yo male with PMH of active IVDA use, cellulitis of LLE with open wound which started after injuring on a kate nail about month ogo seen here and admitted with + 1/2 BCx MSSA on 04/13 subsequent cultures negative he left on 04/16 again came back got admitted on 04/20 at went AMA on 04/23 comes back again for admission saying that he does have swelling and redness of the left leg still and wants to be treated this time Related Data Home Medications ?Medication ?Instructions ?Recorded ?Confirmed ibuprofen 200 mg tablet 400 mg PO Q6H PRN Pain 04/20/25 04/20/25 Previous Rx's ?Medication ?Instructions ?Recorded cefadroxil 500 mg capsule 500 mg PO BID 10 days #20 caps 04/13/25 sulfamethoxazole 800 1 tab PO BID 10 days #20 tabs 04/13/25 mg-trimethoprim 160 mg tablet (Bactrim DS) Allergies Allergy/AdvReac Type Severity Reaction Status Date / Time No Known Allergies Allergy Verified 04/27/25 16:46 [No Known Allergies*] Review of Systems Review of Systems: Yes all other systems are reviewed and are negative PMFSH Past Medical History Medical History MSSA bacteremia Opioid use disorder Social History Social History Household Members: Family Household Members Other:: aunt Housing: House Do you presently have visiting nurse or other home services: No Patient Tobacco Use Status: Never used Tobacco Tobacco use type: Cigarette Cigarette Packs Per Day: 1 Cigarettes Per Day: 20 Smoked in Last 30 Days: No Use of substances other than those prescribed or required for medical reasons: Yes Substance Use Type: Marijuana and Opiates Advance Directives: No Advance Directives Information Provided: No Do you have a plan to hurt others: No Plan service: No Physical Exam ED Vital Signs: Vital Signs - 24 hr 04/27/25 16:44 04/27/25 21:14 Temperature 98.0 F 98.9 F Pulse Rate 75 70 Respiratory Rate 16 18 Blood Pressure 112/66 98/48 L Pulse Oximetry 98 97 Oxygen Delivery Method Room Air Room Air BMI result Body Mass Index 23.6 Appearance: Alert. Oriented X3. No acute distress. Eyes: PERRLA, No Nystagmus ENT: Pharynx normal. Oral Mucosa moist Neck: Normal inspection. Neck supple. CVS: Normal heart rate and rhythm. Pulses normal. Respiratory: No respiratory distress. Equal air entry bilateral, no wheezing/rales/rhonchi Abdomen: Soft and nontender. Bowel sounds are present, no mass palpable, no CVA tenderness Skin: Skin warm and dry. Normal skin color. Normal skin turgor. Extremities: 2+L lower extremity edema. With slight erythema No calf tenderness small open wound with purulent base of the [place] of the left leg Neuro: Oriented X 3. No motor deficit. No sensory deficit.No cerebellar signs , cranial nerves II-XII intact Course Course Course Narrative: 04/27/25 [id number] DARSHANA Guadarrama This is a Rapid Medical Examination (RME) performed by Roxy Goode PA-C in triage. Full HPI, ROS, assessment and treatment plan per primary provider in the Main ED. Hx: 44 yo M here for eval of LLE wound x1 mo. multiple admissions for bacteremia requiring IV abx. left AMA as he had to care for his dog. returns today for continued treatment. PE/vitals: noted erythema/swelling to left foot to midway calf. foul smelling wound w/ purulent drainage to anterior lower leg. Plan: labs, lactic, bc Medications Administered Generic Name Dose Route Start Last Admin Trade Name Freq PRN Reason Stop Dose Admin Cefazolin Sodium 1 gm 04/28/25 06:00 04/28/25 05:55 Cefazolin Sodium 1 Gm Vial IVPUSH 1 gm Q8H NELI Administration Enoxaparin Sodium 40 mg 04/27/25 23:00 04/27/25 23:18 Enoxaparin Sodium 40 Mg/0.4 Ml Syringe SUBCUT 40 mg Q24H NELI Administration Lactated Ringer's 1,000 mls @ 100 mls/hr 04/27/25 23:15 04/27/25 23:18 Lr IVCONT 100 mls/hr .Q10H NELI Administration Sodium Chloride 3 ml 06/07/25 00:00 04/28/25 00:12 0.9 % Sodium Chloride Flush 3 Ml Syringe IVFLUSH Not Given QSHIFT NELI Discontinued Medications Generic Name Dose Route Start Last Admin Trade Name Jaida PRN Reason Stop Dose Admin Cefazolin Sodium/Dextrose 2 gm in 50 mls @ 100 mls/hr 04/27/25 21:30 04/27/25 22:52 Ancef IV 04/27/25 21:59 Infused ONCE ONE Infusion Medical Decision Making Medical Decision Making [facility] Narrative: 44 yo male with PMH of active IVDA use, cellulitis of LLE with open wound which started after injuring on a kate nail about month ogo seen here and admitted with + 1/2 BCx MSSA on 04/13 subsequent cultures negative he left on 04/16 again came back got admitted on 04/20 at went AMA on 04/23 comes back again for admission patient still been taking Bactrim and cefadroxil patient's used IVDA cocaine and heroin prior to arrival case discussed with infectious disease Dr. Wells advised IV antibiotics and try to get echo rule out vegetations patient has had this time agreed to stay in the hospital Differential Diagnosis Differential Diagnoses: The differential diagnosis associated with the presentation includes Admission/Observation Consideration of admission/observation: Escalation of care including admission/observation considered Consult Healthcare Provider Management of the patient was discussed with: Hospitalist Lab Data [facility] Lab Attestation statement: I reviewed the patient's lab results. 04/28/25 03:58 04/28/25 03:58 Labs: Lab Results 04/27/25 Range/Units 17:11 WBC 5.8 (4.8-10.8) X10*3/uL RBC 3.70 L (4.60-5.80) X10*6/uL Hgb 11.0 L (14.0-18.0) g/dl Hct 32.3 L (42.0-52.0) % MCV 87.3 (80.0-98.0) fL MCH 29.7 (27.0-33.0) pg MCHC 34.1 (31.0-36.0) g/dl RDW 13.2 (11.0-16.0) % Plt Count 246 (160-400) X10*3/uL MPV 8.8 L (9.4-12.4) fL Immature Gran % (Auto) 0.3 (0.0-0.4) % Neut % (Auto) 57.8 (45-73) % Lymph % (Auto) 28.6 (20-40) % [place] % (Auto) 8.3 (2-11) % Eos % (Auto) 4.0 (0-4) % Baso % (Auto) 1.0 (0-2) % Lymph # (Auto) 1.7 (1.2-4.9) X10*3/uL [place] # (Auto) 0.5 (0.1-1.2) X10*3/uL Eos # (Auto) 0.2 (0.0-0.4) X10*3/uL Baso # (Auto) 0.1 (0.0-0.2) X10*3/uL Abs Immat Gran (auto) 0.02 (0.00-0.03) X10*3/uL Absolute Neuts (auto) 3.4 (2.0-8.3) x10*3/uL Absolute Nucleated RBC 0.000 (0.0-0.012) X10*3/uL Nucleated RBC % (auto) 0.0 (0.0-0.2) /100WBC ESR 14 (0-15) MM/HR Sodium 140 (135-145) mmol/L Potassium 4.4 (3.3-5.1) mmol/L Chloride 106 (96-108) mmol/L Carbon Dioxide 27 (22-29) mmol/L Anion Gap 11 L (12-20) BUN 17 H (9-16) mg/dL Creatinine 0.79 (0.5-1.4) mg/dL Estim Creat Clear Calc 149.5 Estimated GFR > 60 Random Glucose 94 (60-115) mg/dL Lactic Acid 1.2 (0.5-2.0) mmol/L Calcium 8.8 (8.4-10.2) mg/dL Magnesium 1.9 (1.6-2.6) mg/dL Total Bilirubin 0.2 (0.0-1.0) mg/dL AST 35 (5-37) U/L ALT 23 (0-40) U/L Alkaline Phosphatase 80 (39-117) U/L C-Reactive Protein 0.34 (< or = 0.50) mg/dL Total Protein 6.6 (6.5-8.0) g/dL Albumin 3.8 (3.5-5.0) g/dL Discharge Plan Discharge Clinical Impression: MSSA bacteremia, Chronic wound, Polysubstance abuse Patient Disposition: Admitted As Inpatient
[2025-04-27 17:20] LABS: MANUAL DIFF FLAG NO
[2025-04-27 17:21] LABS: Basophils Absolute Auto 0.1 X10*3/uL (0.0-0.2); Eosinophils Absolute Auto 0.2 X10*3/uL (0.0-0.4); Hematocrit 32.3 % (42.0-52.0); Imm Gran Abs Auto 0.02 X10*3/uL (0.00-0.03); Imm Gran Pct Auto 0.3 % (0.0-0.4); Lymphocytes Absolute Auto 1.7 X10*3/uL (1.2-4.9); Lymphocytes Percent Auto 28.6 % (20-40); Mean Corpuscular HGB Conc 34.1 g/dl (31.0-36.0); Mean Corpuscular Hemoglobin 29.7 pg (27.0-33.0); Mean Corpuscular Volume 87.3 fL (80.0-98.0); Mean Platelet Volume 8.8 fL (9.4-12.4); Monocytes Absolute Auto 0.5 X10*3/uL (0.1-1.2); Monocytes Percent Auto 8.3 % (2-11); Neutrophils Absolute Auto 3.4 x10*3/uL (2.0-8.3); Neutrophils Percent Auto 57.8 % (45-73); Platelet Count 246 X10*3/uL (160-400); Red Cell Distribution Width 13.2 % (11.0-16.0); White Blood Count 5.8 X10*3/uL (4.8-10.8)
[2025-04-27 17:36] LABS: Lactic Acid 1.2 mmol/L (0.5-2.0)
[2025-04-27 17:43] LABS: Alanine Aminotransferase 23 U/L (0-40); Albumin Level 3.8 g/dL (3.5-5.0); Anion Gap 11 (12-20); Aspartate Amino Transferase 35 U/L (5-37); Bilirubin Total 0.2 mg/dL (0.0-1.0); Blood Urea Nitrogen 17 mg/dL (9-16); C Reactive Protein 0.34 mg/dL (< or = 0.50); Calcium 8.8 mg/dL (8.4-10.2); Carbon Dioxide 27 mmol/L (22-29); Chloride 106 mmol/L (96-108); Creatinine Clr Calc Pharmacy 149.5; Estimated Glomerular Filt Rate > 60; Glucose Random 94 mg/dL (60-115); Magnesium 1.9 mg/dL (1.6-2.6); Potassium 4.4 mmol/L (3.3-5.1); Sodium 140 mmol/L (135-145); Total Protein 6.6 g/dL (6.5-8.0)
[2025-04-27 17:58] LABS: Erythrocyte Sedimentation Rate 14 MM/HR (0-15)
[2025-04-27 18:45] LABS: Alkaline Phosphatase 80 U/L (39-117)
[2025-04-27 21:14] VITALS: BP 98/48; PULSE 70; RESP 18; TEMP 37.2; O2SAT 97
--- NOTE | 2025-04-27 21:15 | MHC.EDTECH ---
This pct just assumed care of Patient ,vitals taken ,Patient resting quietly in bed .
--- NOTE | 2025-04-27 22:17 | PC.NURSE ---
pt a&ox4, respirations even and unlabored. pt reports left calf swelling x2 weeks. pt reports he has been previously admitted for this. pt denies pain. vss. 20g placed in left forearm. antibiotics administering at this time
[2025-04-27] MEDS: ceFAZolin Sodium/Dextrose,Iso 2 GM/50 ML PIGGYBACK IV (22:19)
--- NOTE | 2025-04-27 23:05 | P.HPHOSP_ITS ---
History of Present Illness Date of Service: 04/27/25 Chief Complaint: leg wound 44-year-old male with a past medical history of IV drug abuse, left leg open wound/cellulitis after an injury from; MSSA bacteremia noted on 04/10/25; left AMA on 04/16; presented back to the hospital on 04/20 and left AMA on 04/23; comes back to the hospital today with a chief complaint of left leg wound swelling and redness; and wanted to continue antibiotic therapy for his bacteremia. Patient denies any fevers and chills. Denies any nausea or vomiting. Reports he is still using IV drugs-recently used IV cocaine and heroin. Denies any chest pain or palpitations. This time he wanted to continue his antibiotic course. Review of all other systems is negative except mentioned above ER course: Per ER team, patient noted to have left leg wound with slight swelling and erythema around it; no significant discharge; dressing placed; given IV cefazolin. [facility] Medical History MSSA bacteremia Opioid use disorder Social History Household Members: Family Household Members Other:: aunt Housing: House Do you presently have visiting nurse or other home services: No Patient Tobacco Use Status: Current everyday Tobacco user Tobacco use type: Cigarette Cigarette Packs Per Day: 1 Cigarettes Per Day: 20 Smoked in Last 30 Days: No Use of substances other than those prescribed or required for medical reasons: Yes Substance Use Type: Marijuana and Opiates Advance Directives: No Advance Directives Information Provided: No Do you have a plan to hurt others: No Plan service: No Meds Allergies Allergy/AdvReac Type Severity Reaction Status Date / Time No Known Allergies Allergy Verified 04/27/25 16:46 [No Known Allergies*] Active Medications: Current Medications Acetaminophen (Acetaminophen 325 Mg Tablet) 650 mg PO Q6H PRN PRN Reason: Pain, Mild 1-3,fever,headache Calcium Carbonate (Calcium Carbonate 750 Mg Tab.Chew) 750 mg PO Q4H PRN PRN Reason: Heartburn Enoxaparin Sodium (Enoxaparin Sodium 40 Mg/0.4 Ml Syringe) 40 mg SUBCUT Q24H NELI Lactated Ringer's (Lr) 1,000 mls @ 100 mls/hr IVCONT .Q10H PENDING SALE TO [facility] Magnesium Hydroxide (Milk Of Magnesia 30 Ml Oral.Susp) 30 ml PO DAILY PRN PRN Reason: Constipation Melatonin (Melatonin 3 Mg Tablet) 6 mg PO BEDTIME PRN PRN Reason: Insomnia Oxycodone HCl (Oxycodone Hcl Immed Release 5 Mg Tablet) 5 mg PO Q6H PRN PRN Reason: Pain, Severe (Pain Scale 7-10) Sodium Chloride (0.9 % Sodium Chloride Flush 3 Ml Syringe) 3 ml IVFLUSH QSHIFT [facility] TO [facility] Home Medications ?Medication ?Instructions ?Recorded ?Confirmed ?Last Taken ?Type ibuprofen 200 mg tablet 400 mg PO Q6H PRN Pain 04/20/25 04/20/25 Unknown History Physical Exam 2 Vital Signs and Narrative: Vital Signs: Last Vital Signs Temp 98.9 F 04/27/25 21:14 Pulse 70 04/27/25 21:14 Resp 18 04/27/25 21:14 BP 98/48 L 04/27/25 21:14 Pulse Ox 97 04/27/25 21:14 O2 Del Method Room Air 04/27/25 21:14 BMI result Body Mass Index 23.6 Gen: Appears be in no acute distress HEENT: NCAT, Moist mucosa. Pulmonary: Vesicular breath sounds, fair air entry CVS: Normal S1-S2 Abdomen: BS+, Soft, Nontender Extremities: Warm well perfused; left leg wound has surrounding erythema. Neuro: Alert and awake. Results Labs 04/27/25 17:11 04/27/25 17:11 Labs: Laboratory Results - last 24 hr 04/27/25 17:11 MCV 87.3 MCH 29.7 MCHC 34.1 RDW 13.2 Plt Count 246 MPV 8.8 L Immature Gran % (Auto) 0.3 Neut % (Auto) 57.8 Lymph % (Auto) 28.6 [place] % (Auto) 8.3 Eos % (Auto) 4.0 Baso % (Auto) 1.0 Lymph # (Auto) 1.7 [place] # (Auto) 0.5 Eos # (Auto) 0.2 Baso # (Auto) 0.1 Abs Immat Gran (auto) 0.02 Absolute Neuts (auto) 3.4 Absolute Nucleated RBC 0.000 Nucleated RBC % (auto) 0.0 ESR 14 Anion Gap 11 L Estim Creat Clear Calc 149.5 Estimated GFR > 60 Random Glucose 94 Lactic Acid 1.2 Calcium 8.8 Magnesium 1.9 Total Bilirubin 0.2 AST 35 ALT 23 Alkaline Phosphatase 80 C-Reactive Protein 0.34 Total Protein 6.6 Albumin 3.8 Assessment and Plan (1) MSSA bacteremia: Status: Acute Plan 44-year-old male with a past medical history of IV drug abuse, left leg open wound/cellulitis after an injury from; MSSA bacteremia noted on 04/10/25; left AMA on 04/16; presented back to the hospital on 04/20 and left AMA on 04/23; comes back to the hospital today with a chief complaint of left leg wound swelling and redness; and wanted to continue antibiotic therapy for his bacteremia. MSSA bacteremia: Left leg wound: Continue cefazolin ID consult was notified Wound consult echo Opiate abuse/cocaine abuse: Addiction medicine consult follow up in a.m. DVT prophylaxis: Lovenox Code status: Full code Quality Stroke Does the patient have a stroke diagnosis?: No VTE Prior VTE?: No VTE Risk Level:: Medical - moderate - high VTE Device Contraindication: Treatment Not Indicated VTE Drug Contraindication: N/A - Med Ordered
[2025-04-27] MEDS: Lactated Ringers 1,000 ML 100 ML IVCONT (23:18)
[2025-04-27] MEDS: Enoxaparin Sodium 40 MG/0.4 ML SYRINGE SUBCUT (23:18)
[2025-04-27 23:40] VITALS: BP 199/55; PULSE 63; RESP 16; TEMP 36.7; O2SAT 96
--- NOTE | 2025-04-27 23:44 | MHC.EDTECH ---
mid night rounding done ,vitals taken ,Patient sleeping ,400 ml empty from urinal ,no apparent distress noted ,Plan of care continue .
--- NOTE | 2025-04-28 00:03 | MHC.EDTECH ---
Patient belongings list done ,Patient upset because this Pct told Patient he would need to give vape to security until he leaves. Pt claims no one else ever did his belongings list like this. Pt began to swear at me I advised NOAH Mariano and sales assistant institutional salesNOAH Wakefield.
--- NOTE | 2025-04-28 00:14 | PC.NURSE ---
this rn took pt suboxone, pt noted to have 14 suboxone. Agustina cuevas counted and signed with this rn. to bring to pharmacy when open. pt is aware.
[2025-04-28 04:16] VITALS: RESP 16
[2025-04-28 04:28] LABS: MANUAL DIFF FLAG NO
[2025-04-28 04:30] LABS: Basophils Absolute Auto 0.1 X10*3/uL (0.0-0.2); Eosinophils Absolute Auto 0.3 X10*3/uL (0.0-0.4); Eosinophils Percent Auto 6.8 % (0-4); Hematocrit 34.9 % (42.0-52.0); Hemoglobin 11.6 g/dl (14.0-18.0); Imm Gran Abs Auto 0.02 X10*3/uL (0.00-0.03); Imm Gran Pct Auto 0.4 % (0.0-0.4); Lymphocytes Absolute Auto 1.9 X10*3/uL (1.2-4.9); Lymphocytes Percent Auto 37.6 % (20-40); Mean Corpuscular HGB Conc 33.2 g/dl (31.0-36.0); Mean Corpuscular Hemoglobin 29.3 pg (27.0-33.0); Mean Corpuscular Volume 88.1 fL (80.0-98.0); Mean Platelet Volume 9.3 fL (9.4-12.4); Monocytes Absolute Auto 0.4 X10*3/uL (0.1-1.2); Monocytes Percent Auto 8.9 % (2-11); Neutrophils Absolute Auto 2.3 x10*3/uL (2.0-8.3); Neutrophils Percent Auto 45.3 % (45-73); Platelet Count 237 X10*3/uL (160-400); Red Blood Count 3.96 X10*6/uL (4.60-5.80); Red Cell Distribution Width 13.2 % (11.0-16.0)
[2025-04-28 04:45] LABS: Alanine Aminotransferase 19 U/L (0-40); Albumin Level 3.3 g/dL (3.5-5.0); Alkaline Phosphatase 61 U/L (39-117); Anion Gap 8 (12-20); Aspartate Amino Transferase 29 U/L (5-37); Bilirubin Total 0.3 mg/dL (0.0-1.0); Blood Urea Nitrogen 12 mg/dL (9-16); Calcium 8.7 mg/dL (8.4-10.2); Carbon Dioxide 31 mmol/L (22-29); Chloride 106 mmol/L (96-108); Creatinine Clr Calc Pharmacy 134.2; Estimated Glomerular Filt Rate > 60; Glucose Random 91 mg/dL (60-115); Potassium 4.1 mmol/L (3.3-5.1); Sodium 141 mmol/L (135-145)
[2025-04-28] MEDS: ceFAZolin Sodium 1 GM VIAL IVPUSH ×3 (05:55→20:54)
[2025-04-28 06:15] VITALS: BP 112/69; PULSE 59; RESP 16; TEMP 36.9; O2SAT 97
--- NOTE | 2025-04-28 06:16 | MHC.EDTECH ---
0600 rounding done ,vitals taken ,Patient sleeping ,Patient was hooked up to lead laying and gluing machine operator ,Call grijalva within Pt reach .
--- NOTE | 2025-04-28 08:08 | PC.NURSE ---
Assumed care of pt at 0700. Pt resting in bed quietly, a/ox3, speaking in full sentences, neuros intact, respirations even and unlabored, no increased wob/sob noted, maintaining O2 sat >92% on RA, continuous O2 probe placed to monitor, nsr on apartment manager, denies cp/sob at this time. Pt given breakfast tray, sitting upright in bed eating- able to independently feed self. LR infusing per MAR, IV intact, patent and asymptomatic. Urinal emptied 600mls clear/yellow urine- documented in I&Os. Pt declines changing into hospital gown, educated on need to wear hospital attire, pt continues to decline to change. Updated on plan of care, call grijalva within reach, all needs met at this time.
--- NOTE | 2025-04-28 08:13 | PC.NURSE ---
Assumed care of pt at 0700. Pt resting in bed quietly, a/ox3, speaking in full sentences, neuros intact, respirations even and unlabored, no increased wob/sob noted, maintaining O2 sat >92% on RA, continuous O2 probe placed to monitor, nsr on patient monitor, denies cp/sob at this time. Pt given breakfast tray, sitting upright in bed eating- able to independently feed self. LR infusing per MAR, IV intact, patent and asymptomatic. L lower extremity erythema/warmth/swelling- denies pain at this time. Urinal emptied 600mls clear/yellow urine- documented in I&Os. Pt declines changing into hospital gown, educated on need to wear hospital attire, pt continues to decline to change. Pt stated to this RN recently started on suboxone but has not taken it d/t continuing to use IVD. Pt concerned for withdrawal if started on suboxone while here. MD Singh aware pt requesting to start methadone to prevent withdrawal. Addiction medicine consult ordered, pt updated on this plan. No signs of withdrawal at this time. Pt updated on plan of care, call grijalva within reach, all needs met at this time.
--- NOTE | 2025-04-28 09:19 | PHA.MEDREC ---
Addendum entered by Vonda Young RP 04/28/25 09:23: REVIEWED BY [facility] Original Note: Pharmacy Consult ? Medication Reconciliation Pharmacy has completed the medication reconciliation. Spoke with patient to confirm. He brought in his Suboxone but has not started taking this medication yet.
--- NOTE | 2025-04-28 09:21 | HO.PM.IMPN ---
Subjective Subjective Date of Service: 04/28/25 Interval History: improved Physical Exam Vital Signs: Vital Signs: Last Vital Signs Temp 98.4 F 04/28/25 06:15 Pulse 59 04/28/25 06:15 Resp 16 04/28/25 06:15 BP 112/69 04/28/25 06:15 Pulse Ox 97 04/28/25 06:15 O2 Del Method Room Air 04/28/25 06:15 BMI result Body Mass Index 23.6 LLE lesion with minimal drainage no erythema Objective Data Active Medications Acetaminophen (Acetaminophen 325 Mg Tablet) 650 mg PO Q6H PRN PRN Reason: Pain, Mild 1-3,fever,headache Calcium Carbonate (Calcium Carbonate 750 Mg Tab.Chew) 750 mg PO Q4H PRN PRN Reason: Heartburn Cefazolin Sodium (Cefazolin Sodium 1 Gm Vial) 1 gm IVPUSH Q8H [facility] Last Admin: 04/28/25 05:55 Dose: 1 gm Documented By: ROVERTO Enoxaparin Sodium (Enoxaparin Sodium 40 Mg/0.4 Ml Syringe) 40 mg SUBCUT Q24H [facility] Last Admin: 04/27/25 23:18 Dose: 40 mg Documented By: ROVERTO Lactated Ringer's (Lr) 1,000 mls @ 100 mls/hr IVCONT .Q10H [facility] Last Admin: 04/27/25 23:18 Dose: 100 mls/hr Documented By: ROVERTO Magnesium Hydroxide (Milk Of Magnesia 30 Ml Oral.Susp) 30 ml PO DAILY PRN PRN Reason: Constipation Melatonin (Melatonin 3 Mg Tablet) 6 mg PO BEDTIME PRN PRN Reason: Insomnia Oxycodone HCl (Oxycodone Hcl Immed Release 5 Mg Tablet) 5 mg PO Q6H PRN PRN Reason: Pain, Severe (Pain Scale 7-10) Sodium Chloride (0.9 % Sodium Chloride Flush 3 Ml Syringe) 3 ml IVFLUSH QSHIFT [facility] Last Admin: 04/28/25 08:05 Dose: Not Given Documented By: JANICE Non-Admin Reason: IV Running Labs 04/28/25 03:58 04/28/25 03:58 Labs: Laboratory Results - last 24 hr 04/27/25 04/28/25 17:11 03:58 MCV 87.3 88.1 MCH 29.7 29.3 MCHC 34.1 33.2 RDW 13.2 13.2 Plt Count 246 237 MPV 8.8 L 9.3 L Immature Gran % (Auto) 0.3 0.4 Neut % (Auto) 57.8 45.3 Lymph % (Auto) 28.6 37.6 [place] % (Auto) 8.3 8.9 Eos % (Auto) 4.0 6.8 H Baso % (Auto) 1.0 1.0 Lymph # (Auto) 1.7 1.9 [place] # (Auto) 0.5 0.4 Eos # (Auto) 0.2 0.3 Baso # (Auto) 0.1 0.1 Abs Immat Gran (auto) 0.02 0.02 Absolute Neuts (auto) 3.4 2.3 Absolute Nucleated RBC 0.000 0.000 Nucleated RBC % (auto) 0.0 0.0 ESR 14 Anion Gap 11 L 8 L Estim Creat Clear Calc 149.5 134.2 Estimated GFR > 60 > 60 Random Glucose 94 91 Lactic Acid 1.2 Calcium 8.8 8.7 Magnesium 1.9 Total Bilirubin 0.2 0.3 AST 35 29 ALT 23 19 Alkaline Phosphatase 80 61 C-Reactive Protein 0.34 Total Protein 6.6 6.0 L Albumin 3.8 3.3 L Assessment and Plan (1) Cellulitis of left leg: Status: Acute Plan 44M PMH ivda, HCV, opiate dependence, recent mssa bacteremia with incomplete treatment presented with recurrent lle swelling, pain, drainage LLE cellulitis with imcompleted mssa bacteremia treatment continue cefazolin, follow up ID, wound care opiate dependence addiction eval hcv outpatient follow up dvt prophylaxis - lovenox full code reason for continued hospitalization:iv abx Quality Stroke Does the patient have a stroke diagnosis?: No VTE Prior VTE?: No VTE Risk Level:: Medical - moderate - high VTE Device Contraindication: Treatment Not Indicated VTE Drug Contraindication: N/A - Med Ordered
--- NOTE | 2025-04-28 10:26 | MHC.CM.PN ---
Patient lives with his Aunt and is functionally independent. DC Plan may be for IV ABT in a SNF (Suboxone); CM has initiated and will follow for dc planning. NO PCP and declines completing a HCP. Has a hx of leaving AMA. CM will follow.
[2025-04-28] MEDS: Lactated Ringers 1,000 ML 100 ML IVCONT ×2 (10:36→20:56)
[2025-04-28 10:39] VITALS: BP 113/73; PULSE 65; RESP 15; TEMP 36.8; O2SAT 98
[2025-04-28] MEDS: methADONE HCl 20 MG/2 ML ORAL.CONC 40 MG PO (11:20)
--- NOTE | 2025-04-28 13:53 | PC.NURSE ---
Pt requesting to speak with MD about getting some answers ; RN explained pt's dispo (waiting for bed assignment), explained need for abx and continuous IV fluids. Pt does not demonstrate evidence of learning, MD aware.
[2025-04-28] MEDS: LORazepam 1 MG TABLET PO ×2 (15:06→22:40)
[2025-04-28 19:42] VITALS: BP 118/53; PULSE 70; RESP 16; TEMP 36.7; O2SAT 98
[2025-04-28 20:00] VITALS: BMI 23.3
[2025-04-28] MEDS: 0.9 % Sodium Chloride Flush 3 ML SYRINGE IVFLUSH (20:56)
[2025-04-28] MEDS: Enoxaparin Sodium 40 MG/0.4 ML SYRINGE SUBCUT (22:39)
[2025-04-28 23:27] VITALS: BP 111/60; PULSE 74; RESP 20; TEMP 36.8; O2SAT 99
[2025-04-29 03:27] VITALS: BP 100/56; PULSE 63; RESP 20; TEMP 36.4; O2SAT 99
[2025-04-29] MEDS: ceFAZolin Sodium 1 GM VIAL IVPUSH (05:44)
[2025-04-29] MEDS: Lactated Ringers 1,000 ML 100 ML IVCONT (05:44)
[2025-04-29 07:02] LABS: Hematocrit 37.9 % (42.0-52.0); Hemoglobin 12.5 g/dl (14.0-18.0); Mean Corpuscular Hemoglobin 29.6 pg (27.0-33.0); Mean Corpuscular Volume 89.8 fL (80.0-98.0); Mean Platelet Volume 8.9 fL (9.4-12.4); Platelet Count 252 X10*3/uL (160-400); Red Blood Count 4.22 X10*6/uL (4.60-5.80); Red Cell Distribution Width 13.2 % (11.0-16.0); White Blood Count 6.3 X10*3/uL (4.8-10.8)
[2025-04-29 07:19] LABS: Anion Gap 10 (12-20); Blood Urea Nitrogen 13 mg/dL (9-16); Calcium 8.7 mg/dL (8.4-10.2); Carbon Dioxide 31 mmol/L (22-29); Chloride 107 mmol/L (96-108); Creatinine Clr Calc Pharmacy 128.4; Estimated Glomerular Filt Rate > 60; Glucose Random 92 mg/dL (60-115); Potassium 4.2 mmol/L (3.3-5.1); Sodium 144 mmol/L (135-145)
[2025-04-29 07:42] VITALS: BP 105/68; PULSE 70; RESP 20; TEMP 36.4; O2SAT 100
[2025-04-29] MEDS: methADONE HCl 20 MG/2 ML ORAL.CONC 50 MG PO (08:24)
--- NOTE | 2025-04-29 09:23 | P.DS_ITS ---
DS: Providers Provider Date of Service: 04/29/25 Date of admission: 04/27/25 23:03 Date of discharge: 04/29/25 Primary care physician: None Physician Consults: 04/27/25 23:04 Addiction Medicine Provider Routine Consulting Provider: Addiction Covering Reason for consultation: cocaine and heroin abuse 04/27/25 23:05 Consult to Infectious Diseases Routine Consulting Provider: [facility] [place] [facility] Reason for consultation: bactreremia Consult to Wound Care Routine Reason for consultation: leg wound 04/28/25 09:54 Inpt - Recovery Team Routine Comment: Reason for consultation: BH/KSENIA eval DS: Diagnosis Discharge Diagnosis (1) Cellulitis of left leg: Status: Acute DS: Summary Hospital Course Hospital Course: from initial hpi: 44-year-old male with a past medical history of IV drug abuse, left leg open wound/cellulitis after an injury from; MSSA bacteremia noted on 04/10/25; left AMA on 04/16; presented back to the hospital on 04/20 and left AMA on 04/23; comes back to the hospital today with a chief complaint of left leg wound swelling and redness; and wanted to continue antibiotic therapy for his bacteremia. Patient denies any fevers and chills. Denies any nausea or vomiting. Reports he is still using IV drugs-recently used IV cocaine and heroin. Denies any chest pain or palpitations. This time he wanted to continue his antibiotic course. Review of all other systems is negative except mentioned above ER course: Per ER team, patient noted to have left leg wound with slight swelling and erythema around it; no significant discharge; dressing placed; given IV cefazolin. hospital course: Patient was admitted for left lower extremity cellulitis with in completed MSSA bacteremia treatment. Was started on IV cefazolin. Infectious Disease recommended 2 weeks of p.o. Keflex. We will follow up with wound care as outpatient. For opiate dependence was seen by Addiction team and recommended transitioning from Suboxone to methadone. For hepatitis-C we will follow up outpatient Time Attestation Discharge Coordination Time (in mins): 34 Quality: Safe Use of Opioids Does Pt have an Active Cancer Diagnosis on the Problem List?: No Quality: Stroke Does the patient have a stroke diagnosis?: No Physical Exam Vital Signs: Vital Signs: Last Vital Signs Temp 97.5 F 04/29/25 07:42 Pulse 70 04/29/25 07:42 Resp 20 04/29/25 07:42 BP 105/68 04/29/25 07:42 Pulse Ox 100 04/29/25 07:42 O2 Del Method Room Air 04/29/25 07:42 BMI result Body Mass Index 23.3 LLE lesion with minimal drainage no erythema DS: Data Data Completed and Pending Labs on day of discharge: Laboratory Results - last 24 hr 04/29/25 06:45 WBC 6.3 RBC 4.22 L Hgb 12.5 L Hct 37.9 L MCV 89.8 MCH 29.6 MCHC 33.0 RDW 13.2 Plt Count 252 MPV 8.9 L Absolute Nucleated RBC 0.000 Nucleated RBC % (auto) 0.0 Sodium 144 Potassium 4.2 Chloride 107 Carbon Dioxide 31 H Anion Gap 10 L BUN 13 Creatinine 0.92 Estim Creat Clear Calc 128.4 Estimated GFR > 60 Random Glucose 92 Calcium 8.7 Preliminary micro results at discharge 04/27/25 17:11 Blood Culture - Preliminary Blood - Venous No growth after 24 hours. 04/27/25 17:11 Blood Culture - Preliminary Blood - Venous No growth after 24 hours. Discharge Plan Discharge Anticipated Discharge Date/Time: 04/29/25 09:21 Patient Disposition: Home, Self-Care Discharge Diagnosis: cellulitis Referrals: Physician,None [Primary Care Provider] - 1 Week Steffanie Winchester MD [Physician] - 1 Week Discharge Medications: New cephalexin 500 mg capsule 500 mg PO BID Qty: 28 0RF Continued ibuprofen 200 mg Tablet 400 mg PO Q6H PRN (Reason: Pain) Discontinued buprenorphine-naloxone [Suboxone] 8-2 mg film 1 film sublingual BID Patient Comments: 04/28/25: Per patient he has not started this medication yet. Discharge Orders: Discharge Order (Routine); Ordered 04/29/25 Ordered By: Johnny Singh Diet: Advance to usual diet Activity on Discharge: As tolerated Stand Alone Forms: Patient Portal Discharge page Print Language: Yakut Care Plan Goals: recovery Health Concerns: opiate dependence, cellulitis/recent bactremia Plan of Treatment: 2 weeks of keflex follow up with methadone clinic Assessment: see above
--- NOTE | 2025-04-29 09:57 | MHC.CM.PN ---
Patient has been medically cleared for dc to home today, self care.
== END 2025-04-29 11:48 | disposition home or self-care (01) | DRG 383 ==
LOC: HO.ED 21:15 → HO.EDOVER 23:21 → HO.IMC 04-28 16:11
PROVIDERS: Physician Assistant Medical; Admitting Provider Hospitalist; Emergency Provider Internal Medicine; Visit Provider Internal Medicine
DX: L03.116 Cellulitis of left lower limb (principal); B19.20 Unspecified viral hepatitis C without hepatic coma; F17.210 Nicotine dependence, cigarettes, uncomplicated; F11.20 Opioid dependence, uncomplicated; F14.10 Cocaine abuse, uncomplicated; Z71.6 Tobacco abuse counseling
CPT/HCPCS: 36415; 73590; 80048; 80053; 83605; 83735; 85025; 85027; 85652; 86140; 87040; 93306; 99222; 99285; J0690; J1650; J7120; S9485

== ENCOUNTER → 2025-04-27 16:48 | Outpatient (BNV) | payer OTHER, SELFPAY | PROVIDERS: Visit Provider Radiology Diagnostic Radiology | DX: M70.872 Other soft tissue disorders related to use, overuse and pressure, left ankle and foot (principal) | CPT/HCPCS: 73590 ==

== ENCOUNTER → 2025-04-27 23:03 | Outpatient (BNV) | payer OTHER, SELFPAY | PROVIDERS: Admitting Provider Hospitalist; Emergency Provider Internal Medicine; Visit Provider Internal Medicine | DX: L03.116 Cellulitis of left lower limb (principal) | CPT/HCPCS: 99222; 99232; 99239 ==

== ENCOUNTER 2025-05-08 15:15 | Outpatient (RCR) | payer OTHER, SELFPAY | END 2025-05-15 16:39 | disposition home or self-care (01) | LOC: HO.WCC 15:15 | PROVIDERS: Visit Provider Surgery Surgical Oncology | DX: L97.222 Non-pressure chronic ulcer of left calf with fat layer exposed (principal); F17.210 Nicotine dependence, cigarettes, uncomplicated; Z86.19 Personal history of other infectious and parasitic diseases | CPT/HCPCS: 11042; 99213 ==